=== PATIENT | female | born 1950 | race Caucasian/White ===

== ENCOUNTER 2017-08-08 08:50 | Outpatient (RCR) | payer MEDICARE, OTHER ==
[2016-01-12 09:52] VITALS: BMI 34.3
[~2017-08-08 08:50] MED LIST: 0.92DISP2 IVP; ACET-1966 PO; ACET500L35 PO; ALB17R INH; ALBU17AE3 IH; ALBU8.5H IH; AMLO-101 PO; AMOX1TAB9 PO; ARI2 PO; ARIP2TAB9 PO; ASPI81TA94 PO; AZI250 PO; BISA10SU62 RC; BUDE10.2 INH; CA C1TAB85 PO; CARV12.578 PO; CARV6.2574 PO; CEPH500C24 PO; CHOL100059 PO; CHOL500016 PO; CITA-128 PO; CITA-141; CITA-157 PO; DAP500I IV; DIPH-740 PO; DOX25 PO; DOXY-179 PO; DOXY-252 PO; DULO60CA56 PO; ENOX40DI9 SQ; ERGO500037 PO; FAT250EM9 IV; FEN145 PO; FISH OIL 1,2001 CAP PO; FLUT1DIS28 IH; FUR40 PO; FURO-45 PO; FURO40SO5 IVP; GABA-547 PO; GLIM2TAB42 PO; GOLYTE PO; GUAI600T57 PO; HCTZ25 PO; HYDR-385 PO; INSU100C10 SQ; INSU100V24 SQ; INSULIN LANTIS; IRO150 PO; IRON150C19 PO; LANI SQ; LANI SUBQ; LEVA0.6320 IH; LEVA0.6320 NEB; LEVA15HF IH; LIS10 PO; LISI-362 PO; LISI5TAB25 PO; LOR1 PO; LORA2VIA IVP; LOSA50TA72 PO; MAGN400T4 PO; METF-1 PO; METF-420 PO; METO5AMP IV; NEBI10TA4 PO; NYST15PO4 TP; ONDA4TAB97 PO; ONDA4VIA IVP; OXY10 PO; OXYC-865 PO; OXYC5TAB38 PO; PAN40 PO; PANT40TA65 PO; PANT40VI4 IV; PER PO; POLY500P2 PO; POT25TAB11 PO; POTA-24 PO; POTA20IV IV; POTA20LI10 PO; POTA20PA25 PO; POTA20TA85 PO; POTA20TA94 PO; PRE20 PO; PRE50 PO; PRED20TA6 PO; PREG50CA48 PO; PREN-148 PO; RANI-324 PO; RIV10 PO; SENN-90 PO; SUCR1TAB51 PO; TAMS0.4C70 PO; TOLT2CAP7 PO; TOLT4CAP13 PO; TRAM-420 PO; TRILI135PT PO; VANC1VIA14 IV; VAR05PT PO; VIT1CAPS34 PO; ZOL5; ZOLP-350 PO; ZOLP12.546 PO; ZOLP6.2529 PO; [UNRECOGNIZED DRUG - CODE] IV; [UNRECOGNIZED DRUG - CODE] IVP; [UNRECOGNIZED DRUG - CODE] PO
[2017-08-09] MEDS ORDERED: LIDOCAINE/SOD BICARB 8.4% SYR ID PRN (06:00)
[2017-08-09] MEDS ORDERED: WATER STERILE 10 ML VIAL IVP PRN (06:00)
[2017-08-09] MEDS ORDERED: NS(*) 0.9% 100 ML BAG 100 ML IVPB PRN (06:00)
[2017-08-09] MEDS ORDERED: HEPARIN FLSH (PORT) 500 UN/5ML IVP PRN (06:00)
[2017-08-09] MEDS ORDERED: DEXTROSE 5%(*) 100 ML BAG 100 ML IVPB PRN (06:00)
[2017-08-09] MEDS ORDERED: ALTEPLASE RECOMB 2 MG VIAL IVP PRN (06:00)
[2017-08-09] MEDS ORDERED: NS(*) 0.9% 500 ML BAG 500 ML IV PRN (06:00)
[2017-08-09 16:41] VITALS: BP 143/83
[2017-08-31] MEDS ORDERED: RIVA20TA PO (15:18)
[2017-08-31] MEDS ORDERED: RIVA15TA PO (16:17)
[2017-09-06] MEDS ORDERED: FLU60SYR30 IM ONLY (15:40)
[2017-09-06] MEDS ORDERED: CARV12.578 PO (15:48)
[2017-09-06] MEDS ORDERED: POTA20TA85 PO (15:48)
[2017-09-06] MEDS ORDERED: ALBU8.5H IH (15:48)
[2017-09-06] MEDS ORDERED: ROSU10TA13 PO (15:48)
[2017-09-06] MEDS ORDERED: FURO-45 PO (15:48)
[2017-09-06] MEDS ORDERED: TRAM-420 PO (15:48)
[2017-09-06] MEDS ORDERED: ARI2 PO (15:48)
[2017-09-06] MEDS ORDERED: PREG50CA48 PO (15:48)
[2017-09-06] MEDS ORDERED: FLUT1DIS28 IH (15:48)
[2017-09-06] MEDS ORDERED: DOXY-179 PO (15:48)
[2017-09-06] MEDS ORDERED: DULO60CA56 PO (15:48)
[2017-09-07] MEDS ORDERED: DICL100G39 TOP (16:40)
[2017-09-13] MEDS ORDERED: DICL100G39 TOP (15:27)
== END 2017-11-06 ==
LOC: SPU 08:50
PROVIDERS: ATTEND Emergency Medicine
DX: D50.9 Iron deficiency anemia, unspecified (principal)
CPT/HCPCS: 96523; J1642

== ENCOUNTER 2017-10-06 13:00 | Outpatient (RCR) | payer MEDICARE, OTHER ==
[2016-01-12 09:52] VITALS: Ht 162.6 cm; Wt 95.0 kg
[2017-10-02 11:03] LABS: PLATELET COUNT, AUTOMATED 243 K/uL (150-450)
[2017-10-02 11:19] VITALS: BP 120/50
[~2017-10-06] VITALS: Ht 162.6 cm; Wt 95.0 kg
[~2017-10-06 13:00] MED LIST changes: +DICL100G39 TOP; +FLU60SYR30 IM ONLY; +RIVA15TA PO; +RIVA20TA PO; +ROSU10TA13 PO
[2017-10-06 13:21] VITALS: BP 138/68
--- NOTE | 2017-10-14 15:40 | ONCOLOGY FOLLOW UP NOTE ---
EVENT DATE: October 06, 2017 DIAGNOSES 1. Iron deficiency anemia with no response to iron supplement. 2. Type 2 diabetes mellitus on insulin. 3. Infected right hip replacement. 4. Depression. 5. Gastroesophageal reflux disease. 6. Hypertension. 7. History of breast cancer status post right mastectomy. 8. Sleep apnea. CHIEF COMPLAINT The patient is here today for followup of her iron deficiency anemia. HEMATOLOGY HISTORY The patient is a 67-year-old female who had a right hip replacement fifteen years ago and apparently this became infected in 2013, treated with long-term antibiotics. She ultimately required exploration with antibiotic spacer placed. The patient currently is receiving oral antibiotic under the care of Dr. Mendoza in [place]. The patient had PICC line placed and she had catheter- related thrombosis recently for which the patient was put on Xarelto 20 mg daily. As per patient, she had a GI workup for evaluation of her iron deficiency anemia by Dr. Lara and, as per patient, she was found to have a bleeding small bowel ulcer. The patient was put on iron with ferrous sulfate 325 mg three times daily, but she continues to have anemia, and she received two units of packed RBCs on March 08, 2016. Her CBC on February 22, 2016 showed white count 8000, hemoglobin 8.9, hematocrit 28.7 and MCV 80.9 with platelets 176, 000. The patient is referred for further evaluation and management of her iron deficiency anemia which is not responding to the oral iron supplementation. HISTORY OF PRESENT ILLNESS Patient is here today for followup of her iron deficiency anemia. Patient is doing fine currently, except that she was found recently to have thrombosis of the carotid artery and the patient is currently on anticoagulation for that. She has some cough and wheezing, and she has nasal discharge, but other than that everything is stable. PAST MEDICAL HISTORY 1. Iron deficiency anemia. 2. Infected right hip replacement 3. COPD. 4. Atrial fibrillation. 5. Depression. 6. Hyperlipidemia. 7. Obesity. 8. GERD. 9. Hypertension. 10. Type 2 diabetes. 11. History of breast cancer. 12. History of non-ST elevated myocardial infarction. 13. History of bladder dysfunction. 14. Sleep apnea. 15. Chronic pain syndrome. 16. Congestive heart failure. PAST SURGICAL HISTORY 1. Hysterectomy. 2. Cholecystectomy. 3. Right mastectomy for breast cancer. 4. Left leg [id number] amputation. 5. Broken right calcaneus bone. SOCIAL HISTORY The patient is a with two children. She smokes little. Denies any abuse of alcohol or illicit drugs. 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 FAMILY HISTORY Mother with breast cancer. She has also brother and sister with cancer. CURRENT MEDICATIONS 1. Lasix 20 mg twice daily. 2. Insulin Lantus 30 units subcutaneously twice daily. 3. Xarelto 20 mg daily. 4. Protonix 40 mg twice daily. 5. Doxycycline 100 mg b.i.d. 6. Ferrous sulfate 150 mg capsule of polysaccharide iron 150 three times daily. 7. Lyrica 50 mg three times daily. 8. Exubinex HFA 15 gm one to two puffs by inhalation three times daily as needed for wheezing. 9. Humalog insulin subcutaneously sliding scale. 10. Abilify 2 mg daily. 11. Vitamin D3 at 1000 units daily. 12. Magnesium oxide 400 mg daily in two divided doses. 13. Celexa 40 mg daily. 14. Aspirin 81 mg daily. ALLERGIES HYDROCODONE, LISINOPRIL, MORPHINE, SULFAMETHOXAZOLE, TRIMETHOPRIM, VANCOMYCIN. REVIEW OF SYSTEMS CONSTITUTIONAL: No appetite or weight change. No fever, chills or sweating. No recent infection. HEENT: Ears: No tinnitus or hearing problem. Nose: Patient has nasal discharge. Throat: No sore throat or mouth ulcers. Eyes: No diplopia or visual changes. RESPIRATORY: Patient has cough with wheezing. CARDIOVASCULAR: No chest pain, orthopnea, or paroxysmal nocturnal dyspnea (PND) . No edema. No palpitations. GASTROINTESTINAL: No nausea or vomiting. No diarrhea or constipation. No change in bowel movements. No heartburn or swallowing difficulties. No abdominal pain. No jaundice. No hematemesis, melena or rectal bleeding. GENITOURINARY: No hematuria or dysuria. MUSCULOSKELETAL: No pain in the muscles, joints or bones. NEUROLOGICAL: No tingling or numbness in the hands or feet. No headaches or convulsions. HEMATOLOGIC/LYMPHATIC: No bleeding or easy bruising. No weakness or fatigue. No enlarged lymph nodes. SKIN: No skin rash or lumps. PSYCHIATRIC: No anxiety or depression. PHYSICAL EXAMINATION GENERAL: Looks stable. Well-developed, well-nourished, and in no acute distress. VITAL SIGNS: Blood pressure 138/68, pulse 88 per minute, respirations 16 per minute, temperature 97.6, pulse ox 93% on 2L oxygen. HEENT: Head: Atraumatic. No sinus tenderness to palpation. Eyes: No icterus or conjunctivitis. Mouth and throat: No oral thrush or mucositis. NECK: Supple. No cervical or supraclavicular lymphadenopathy. LUNGS: Clear to auscultation and percussion bilaterally. HEART: Regular rate and rhythm. No gallops, murmurs, clicks or rubs. ABDOMEN: Soft and lax. No tenderness. No hepatosplenomegaly. No masses. EXTREMITIES: Patient has artificial leg. LYMPHATICS: No peripheral lymphadenopathy. NEUROLOGICAL: Conscious, alert and oriented times three. No focal motor or sensory deficits. PSYCHIATRIC: Mood and affect appear normal. SKIN: No skin rash, bruise or purpuric eruption. DIAGNOSTIC DATA CBC showed white count 10.1, hemoglobin 11.2, hematocrit 33.6, platelets 243, 000. Iron studies show a serum iron of 83, TIBC 383, iron saturation 27.4% and ferritin 28, which is up from 14. ASSESSMENT 1. Iron deficiency anemia with no response to oral iron supplementation. Patient had a gastrointestinal workup by Dr. Lara and the patient was found to have a small bowel ulcer. She was maintained on Xarelto for deep venous thrombosis of the left upper extremity, which was discontinued, but the patient was put back recently on anticoagulation because of carotid artery thrombosis. Patient showed poor response to iron supplementation. She received infusion of iron supplementation in the form of Injectafer with improvement of her iron deficiency. Her hemoglobin improved from 8.6 to 11.8 and her current hemoglobin is 11.2. Her iron studies showed ferritin of 28, which is up from 14 , iron saturation 27.4%, serum iron 83 and TIBC is 383. I am planning to continue followup. I will see her again in 3 months with CBC and iron studies with ferritin. 2. Deep venous thrombosis, left upper extremity, resolved with Xarelto. 3. Carotid artery thrombosis, on anticoagulation currently. 4. Type 2 diabetes, on insulin. 5. Depression. 6. Gastroesophageal reflux disease. 7. History of breast cancer, status post right mastectomy. 8. Sleep apnea. PLAN 1. Continue followup. 2. Patient to return in three months with CBC, iron studies with ferritin. 3. Consider Injectafer if the patient will develop iron deficiency again. 4. Patient is to contact us for any new concerns or complaints. MTDD
[2017-12-01] MEDS ORDERED: RIVA20TA PO (12:55)
== END 2017-12-28 ==
LOC: ONC 13:00
PROVIDERS: ATTEND Internal Medicine Hematology
DX: D64.9 Anemia, unspecified (principal)
CPT/HCPCS: 36591; 82728; 83540; 83550; 85025; G0463; 99212

== ENCOUNTER 2017-11-22 13:09 | Outpatient (RCR) | payer MEDICARE, OTHER ==
[2016-01-12 09:52] VITALS: BMI 34.3
[~2017-11-22 13:09] MED LIST changes: -RANI-324 PO; +RANI-366 PO
[2017-11-22] MEDS ORDERED: WATER STERILE 10 ML VIAL IVP PRN (14:30)
[2017-11-22] MEDS ORDERED: NS(*) 0.9% 100 ML BAG 100 ML IVPB PRN (14:30)
[2017-11-22] MEDS ORDERED: LIDOCAINE/SOD BICARB 8.4% SYR ID PRN (14:30)
[2017-11-22] MEDS ORDERED: NS(*) 0.9% 500 ML BAG 500 ML IV PRN (14:30)
[2017-11-22] MEDS ORDERED: DEXTROSE 5%(*) 100 ML BAG 100 ML IVPB PRN (14:30)
[2017-11-22] MEDS ORDERED: ALTEPLASE RECOMB 2 MG VIAL IVP PRN (14:30)
[2017-11-22] MEDS ORDERED: HEPARIN FLSH (PORT) 500 UN/5ML IVP PRN (14:30)
[2017-11-22 14:58] VITALS: BP 117/65
[2017-12-01] MEDS ORDERED: RIVA20TA PO (12:55)
[2018-01-08] MEDS ORDERED: BLOO-1511 MC (09:21)
[2018-01-08] MEDS ORDERED: LANC-1295 MC (09:21)
[2018-01-11] MEDS ORDERED: LANI SUBQ (16:57)
[2018-01-11] MEDS ORDERED: INSU100V24 SQ (16:57)
[2018-01-28] MEDS ORDERED: AMOX-559 PO (17:09)
[2018-02-06] MEDS ORDERED: TRAM-420 PO (16:59)
== END 2018-02-20 ==
LOC: SPU 13:09
PROVIDERS: ATTEND Internal Medicine Hematology
DX: D50.9 Iron deficiency anemia, unspecified (principal)
CPT/HCPCS: 96523; J1642

== ENCOUNTER → 2017-11-27 | Outpatient (CLI) | payer MEDICARE, OTHER ==
[2016-01-12 09:52] VITALS: BMI 34.3
[~2017-11-27] MED LIST changes: +RANI-324 PO; -RANI-366 PO
--- NOTE | 2017-11-27 15:49 | RADIOLOGY IMAGING REPORT ---
FACILITY: [facility] PATIENT NAME: Rosario Mary : 1950 MR: [id number] V: [id number] EXAM DATE: ORDERING PHYSICIAN: LYNN VALERIO TECHNOLOGIST: Location: [facility] Patient: Rosario Mary : 1950 Visit/Account:[id number] Date of Sevice: 11/27/2017 Exam type: VENOUS DOPP UPPER RIGHT EXTREM History: Chronic right internal jugular vein thrombosis Comparison: Thyroid ultrasound August 31, 2017. Findings: The inferior right internal jugular vein appears partially compressible and appears to contain a smal l amount of thrombus. This is markedly improved however when compared the prior thyroid ultrasound. The right subclavian vein appeared patent without thrombus IMPRESSION: 1. A small amount of residual chronic thrombus is seen in the inferior right internal jugular vein w hich appeared partially compressible. This does represent an improvement however when compared to e prior thyroid ultrasound Report Dictated By: Jovanna High MD at 11/27/2017 3:31 PM Report E-Signed By: Jovanna High MD at 11/27/2017 3:43 PM WSN:[email or web address]
--- NOTE | 2017-11-27 15:56 | RADIOLOGY IMAGING REPORT ---
FACILITY: [facility] [place] PATIENT NAME: Rosario Mary : 1950 MR: [id number] V: [id number] EXAM DATE: ORDERING PHYSICIAN: LYNN VALERIO TECHNOLOGIST: Location: [facility] [place] Patient: Rosario Mary : 1950 Visit/Account:[id number] Date of Sevice: 11/27/2017 THYROID HISTORY: Substernal goiter COMPARISON: August 31, 2017 FINDINGS: SIZE: Enlarged Right lobe: 7.7 x 4 x 5 cm Left lobe: 6.4 x 2.4 x 3.2 cm Isthmus: 1.7.. mm PARENCHYMA: Both lobes appear extremely heterogeneous and multinodular similar to the prior study NODULES: * Multinodular goiter the previously defined isthmus nodule measures 2.8 x 1.3 x 1.5 cm similar to t he prior study as well VASCULARITY: Hypervascular ADDITIONAL FINDINGS: None. IMPRESSION: Enlarged extremely heterogeneous multinodular thyroid appear similar to the prior study REFERENCE: 2015 [place] [employer] Management Guidelines for Adult Patients with Thyroid Nodules and D ifferentiated Thyroid Cancer: The [place] [employer] Guidelines Task Force on Thyroid Nodul es and Differentiated Thyroid Cancer. SONOGRAPHIC PATTERNS: * Benign: Purely cystic nodules (no solid component); estimated risk of malignancy <1 percent; no bi opsy recommended. * Very Low Suspicion: Spongiform or partially cystic nodules without any of the sonographic features described in low, intermediate, or high suspicion patterns; estimated risk of malignancy <3 percent; consider FNA at > 2 cm (Observation without FNA is also a reasonable option). * Low Suspicion: Isoechoic or hyperechoic solid nodule, or partially cystic nodule with eccentric so lid areas, without microcalcification, irregular margin or ETE (extra-thyroidal extension), or taller than wide shape; estimated risk of malignancy 5-10 percent; recommend FNA at >1.5 cm. * Intermediate Suspicion: Hypoechoic solid nodule with smooth margins without microcalcifications, E TE (extra-thyroidal extension), or taller than wide shape; estimated risk of malignancy 10-20 percent ; recommend FNA at > 1 cm. * High Suspicion: Solid hypoechoic nodule or solid hypoechoic component of a partially cystic nodule with one or more of the following features: irregular margins (infiltrative, microlobulated), microc alcifications, taller than wide shape, rim calcifications with small extrusive soft tissue component, evidence of ETE (extra-thyroidal extension); estimated risk of malignancy >70-90 percent; recommend FNA at > 1 cm. NOTES: * Although a sonographically suspicious subcentimeter thyroid nodule without evidence of extrathyroi umer extension or sonographically suspicious lymph nodes may be observed with close sonographic follow -up rather than pursuing immediate FNA, patient age and preference may modify decision-making. A > 50% interval increase in nodule volume and/or development of new suspicious sonographic features are felt to be a valid reasons for potential re-aspiration of a nodule previously shown to have benig n FNA cytology. Report Dictated By: Jovanna High MD at 11/27/2017 3:47 PM Report E-Signed By: Jovanna High MD at 11/27/2017 3:52 PM WSN:[email or web address]
== END ==
LOC: US 01:04
PROVIDERS: ATTEND Surgery
DX: I82.C21 Chronic embolism and thrombosis of right internal jugular vein (principal); E04.9 Nontoxic goiter, unspecified
CPT/HCPCS: 76536

== ENCOUNTER 2018-01-01 08:08 | Outpatient (RCR) | payer MEDICARE, OTHER ==
[2016-01-12 09:52] VITALS: BMI 34.3
[~2018-01-01 08:08] MED LIST changes: +ALTEPLASE RECOMB 2 MG VIAL IVP PRN; +DEXTROSE 5%(*) 100 ML BAG 100 ML IVPB PRN; +HEPARIN FLSH (PORT) 500 UN/5ML IVP PRN; +LIDOCAINE/SOD BICARB 8.4% SYR ID PRN; +NS(*) 0.9% 100 ML BAG 100 ML IVPB PRN; +NS(*) 0.9% 500 ML BAG 500 ML IV PRN; -RANI-324 PO; +RANI-366 PO; +WATER FOR INJ,STERILE 20 ML IVP PRN
[2018-01-08] MEDS ORDERED: BLOO-1511 MC (09:21)
[2018-01-08] MEDS ORDERED: LANC-1295 MC (09:21)
[2018-01-11] MEDS ORDERED: INSU100V24 SQ (16:57)
[2018-01-11] MEDS ORDERED: LANI SUBQ (16:57)
[2018-01-28] MEDS ORDERED: AMOX-559 PO (17:09)
[2018-02-06] MEDS ORDERED: TRAM-420 PO (16:59)
== END 2018-02-16 11:32 | disposition home or self-care (01) ==
LOC: ONC 08:08
PROVIDERS: ATTEND Internal Medicine Hematology
DX: D64.9 Anemia, unspecified (principal)

== ENCOUNTER 2018-01-24 13:00 | Outpatient (RCR) | payer MEDICARE, OTHER ==
[2016-01-12 09:52] VITALS: BMI 34.3
--- NOTE | 2017-10-31 16:32 | PT INITIAL EVALUATION ---
MEDICAL DIAGNOSIS: balance and gait TREATMENT DIAGNOSIS: same, decreased strength DATE OF ONSET: 02/23/17 SUBJECTIVE: Rosario Mary presents to physical therapy with complaints of decreased endurance and decreased gait and balance. She reports that in the last few months, she recovered from a blood clot and wound on her prosthetic limb. She reports that she is able to cook, clean, drive, and most house hold responsibilities independently. She reports that she wants to be able to walk with a cane versus a FWW. Furthermore, she reports that she would like to become confident with walking on uneven ground with a FWW so that she can walk around her house when she is by herself. Furthermore, she reports that she continues to have a fear of falling that she wants to overcome and has overcome a lot in the last few years. She denies any pain in her B LE's, however, she does report that she has lymphedema in her R UE and LE that she would like to take care of in the future. REHAB PROBLEM LIST: Decreased ROM Decreased Strength Decreased Endurance Decreased Balance Decreased Function Decreased ADL's Decreased Mobility Decreased Gait PREVIOUS MEDICAL HISTORY: See EMR OCCUPATION: Retired OBJECTIVE: Posture: She demonstrated forward head, B rounded shoulders, increased thoracic kyphosis, and decreased lumbar lordosis. Strength: B hip abduction, extension, B knee flexion, and B ankle DF: 4/5. B hip adduction, B knee extension, B ankle PF: 5/5. Special Tests: The lower extremity functional scale: 33/80; 58.8% impairment. 6 minute walk test: 428 feet with no rest breaks. Mobility: Modified Independent Gait: With FWW, she demonstrated the following gait mechanics: equal B step lengths, increased base of support, decreased velocity, increased double limb support, decreased pelvic rotation, and no LOB. Balance: Normal base of support, firm surface, and eyes opened: 60 seconds. Decreased base of support, firm surface, and eyes opened: 60 seconds. Tandem stance, firm surface, and eyes opened: 30 seconds with R or L LE forward. Normal base of support, firm surface, and eyes closed: 40 seconds. Decreased base of support, firm surface, and eyes closed: 20 seconds. ASSESSMENT: Rosario will benefit from skilled physical therapy to address the listed impairments to improve function and QOL. Short Term Goals In 6 weeks pt will increase ambulation prior to fatigue to 3 laps around track (855 ft) using 4WW increasing functional endurance resulting in increased ambulation around home and community. In 6 weeks pt will increase strength in R LE to equal that in L LE for increased functional ability to perform transfers and ADL's. In 8 weeks, pt will be able to transition from FWW to cane independently to improve function and QOL. 10 weeks, pt will be able to ambulate on uneven ground with FWW to improve her fear of falling and improve function and QOL. Patient's Goals walking with cane and walking on uneven ground PLAN: Patient to be seen for Manual Therapy/STM/MET Strengthening/condition Range of Motion Spinal Stabilization Work Hardening/Cond Stretching Neuromuscular Re-ed Closed Chain Program Posture/Body mechanics Gait Trg/Balance Trg Home Exercise Program Therapeutic Activities 2x/Week for 10 weeks If you have any questions, comments, or concerns about this report or plan, please contact me at . Thank you, Nash Tran, PT, DPT VANESSA
--- NOTE | 2017-12-07 14:51 | PT PLAN OF CARE ---
Physician: Ashlee Delgado MD Patient is being seen: 2x/week Therapist: Nash Tran, PT, DPT Medical Diagnosis: balance and gait Treatment Diagnosis: same, decreased strength Date of Onset: 02/23/17 Date of Initial Evaluation: 10/30/17 Date patient was last seen: 12/06/17 Number of treatments: 10 Number of cancellations/No shows: 1 INTERVENTIONS: Manual Therapy/STM/MET Strengthening/condition Range of Motion Spinal Stabilization Work Hardening/Cond Stretching Neuromuscular Re-ed Closed Chain Program Posture/Body mechanics Gait Trg/Balance Trg Home Exercise Program Therapeutic Activities GOALS: In 6 weeks pt will increase ambulation prior to fatigue to 3 laps around track (855 ft) using 4WW increasing functional endurance resulting in increased ambulation around home and community. NM In 6 weeks pt will increase strength in R LE to equal that in L LE for increased functional ability to perform transfers and ADL's. Progressing In 8 weeks, pt will be able to transition from FWW to cane independently to improve function and QOL. NM 10 weeks, pt will be able to ambulate on uneven ground with FWW to improve her fear of falling and improve function and QOL. NM PATIENT'S GOAL: walking with cane and walking on uneven ground Status of Patient's Goals: Progressing Patient Compliance: Good Prognosis: Good Reasons for continuing therapy: This is a progress note for Rosario Mary. She reports that she is doing well. She continues to report that her prosthetic is putting a lot of pressure over her wound and she will be seeing the rotoformer backtender tomorrow to modify her prosthetic. She reports that her back is doing really well and has not felt any low back pain the last 4-5 days. She reports that she continues to utilize her lumbar support with good results. She reports that she would really like to return to gait training but is limited by the sore developed on her prosthetic side due to the prosthetic fitting incorrectly. She continues to demonstrate a wound on her prosthetic side, however, it continues to get better and not worse, furthermore, she needs to have the prosethesis change the fitting so that it fits correctly and take the pressure off over the wound so that it can fully heal and then she can return to gait training. However, she has been able to focus on her low back pain, which centralized and then abolished. Furthermore, she has been able to focus on improving core and B LE strength during this time, which will benefit in returning to gait training. Posture: She demonstrated forward head, B rounded shoulders, increased thoracic kyphosis, and decreased lumbar lordosis. ROM: Strength: B hip abduction, extension, B knee flexion, and B ankle DF: 4/5 to 4+/ 5. B hip adduction, B knee extension, B ankle PF: 5/5. Palpation: Special Tests: The lower extremity functional scale: 40/80; 50% impairment. 6 minute walk test: 428 feet with no rest breaks (did not test due to wound. Mobility: Modified Independent If you have any questions, please contact me at [phone]. Thank you, Nash Tran, PT, DPT MTDD
[~2018-01-24 13:00] MED LIST changes: -ALTEPLASE RECOMB 2 MG VIAL IVP PRN; +BLOO-1511 MC; -DEXTROSE 5%(*) 100 ML BAG 100 ML IVPB PRN; -HEPARIN FLSH (PORT) 500 UN/5ML IVP PRN; +LANC-1295 MC; -LIDOCAINE/SOD BICARB 8.4% SYR ID PRN; -NS(*) 0.9% 100 ML BAG 100 ML IVPB PRN; -NS(*) 0.9% 500 ML BAG 500 ML IV PRN; +RANI-324 PO; -RANI-366 PO; -WATER FOR INJ,STERILE 20 ML IVP PRN
--- NOTE | 2018-01-24 15:10 | PT PLAN OF CARE ---
Physician: Ashlee Delgado MD Patient is being seen: 2x/week Therapist: Nash Tran, PT, DPT Medical Diagnosis: balance and gait Treatment Diagnosis: same, decreased strength Date of Onset: 02/23/17 Date of Initial Evaluation: 10/30/17 Date patient was last seen: 01/24/18 Number of treatments: 20 Number of cancellations/No shows: 1 INTERVENTIONS: Manual Therapy/STM/MET Strengthening/condition Range of Motion Spinal Stabilization Work Hardening/Cond Stretching Neuromuscular Re-ed Closed Chain Program Posture/Body mechanics Gait Trg/Balance Trg Home Exercise Program Therapeutic Activities GOALS: In 6 weeks pt will increase ambulation prior to fatigue to 3 laps around track (855 ft) using 4WW increasing functional endurance resulting in increased ambulation around home and community. NM In 6 weeks pt will increase strength in R LE to equal that in L LE for increased functional ability to perform transfers and ADL's. Progressing In 8 weeks, pt will be able to transition from FWW to cane independently to improve function and QOL. Progressing 10 weeks, pt will be able to ambulate on uneven ground with FWW to improve her fear of falling and improve function and QOL. NM PATIENT'S GOAL: walking with cane and walking on uneven ground Status of Patient's Goals: Progressing Patient Compliance: Good Prognosis: Good Reasons for continuing therapy: This is a progress note for Rosario Mary. She reports that she came from the "eye doctor" and received a lot of eye drops. She reports that she feels a bit off balance due to being dilated. Otherwise, she reports that she continues to feel more tired than usual. Furthermore, she reports that her prosthetic will be adjusted tomorrow. She denies any skin breakdown on her L LE. She denies any pain. She demonstrates improved gait mechanics (increased R step length, increased velocity, and no LOB) with quad cane, however, her prosthetic currently is extremely high, which causes her to vault over her L LE along with increased base of support and increased trunk movement. We will continue to fine tune her gait mechanics as her prosthetic is lowered to the correct height. Furthermore, she continues to demonstrate improved endurance and B LE strength as she continues to require increased resistance. Lastly, she is transitioning well from the FWW to quad cane and we will continue to improve gait mechanics with quad cane, B LE strength, and return to prior level of function. Posture: She demonstrated forward head, B rounded shoulders, increased thoracic kyphosis, and decreased lumbar lordosis. Strength: B hip abduction, extension, B knee flexion, and B ankle DF: 4/5 to 4+/ 5. B hip adduction, B knee extension, B ankle PF: 5/5. Special Tests: The lower extremity functional scale: 40/80; 50% impairment. 6 minute walk test: 428 feet with no rest breaks Mobility: Modified Independent If you have any questions, please contact me at [phone]. Thank you, Nash Tran, PT, DPT MTDD
[2018-01-28] MEDS ORDERED: AMOX-559 PO (17:09)
== END 2018-01-28 ==
LOC: PT 13:00
PROVIDERS: ATTEND Emergency Medicine
DX: M62.81 Muscle weakness (generalized) (principal); R26.89 Other abnormalities of gait and mobility; I89.0 Lymphedema, not elsewhere classified; Z96.643 Presence of artificial hip joint, bilateral; Z89.512 Acquired absence of left leg below knee; Z97.14 Presence of artificial left leg (complete) (partial)
CPT/HCPCS: 97162

== ENCOUNTER 2018-01-28 14:48 | Emergency (ER) | payer MEDICARE, OTHER ==
[2016-01-12 09:52] VITALS: Wt 96.6 kg
--- NOTE | 2018-01-28 15:28 | ER Report ---
History and Physical Time Seen By MD: 15:16 Hx. of Stated Complaint: pt reports wound on toe HPI/ROS CHIEF COMPLAINT: Wound to right great toe HISTORY OF PRESENT ILLNESS: 67-year-old female patient presents to emergency room with complaint of a wound to the right great toe. Patient states that she laid down to take a nap. When she woke up her dog was licking her toe. She states that when she'll down and she knows there is bleeding from the toe. It appears the dog had been chewing on her toe. Patient states she is diabetic, she has significant neuropathy to her feet. She states that she had a toenail removed a few weeks ago. She had removed some skin from the nail bed. She believes that is what caused the dog started chewing on her toe. Patient denies any fevers, chills, nausea, vomiting or diarrhea. Patient is leaving to go to [place] in 5 days. REVIEW OF SYSTEMS: Respiratory: No cough, no dyspnea. Cardiovascular: No chest pain, no palpitations. Gastrointestinal: No vomiting, no abdominal pain. Musculoskeletal: As noted above Allergies: Coded Allergies: hydrocodone (Verified Allergy, Severe, 01/28/18) angioedema lisinopril (Verified Allergy, Severe, 01/28/18) angioedema sulfamethoxazole (Verified Allergy, Severe, 01/28/18) angioedema trimethoprim (Verified Allergy, Severe, 01/28/18) angioedema morphine (Verified Allergy, Intermediate, MENTAL STATUS CHANGES, 01/28/18) vancomycin (Verified Allergy, Mild, HIVES, 01/28/18) Pt was given Vanco on 07/14/15 at [facility], had hives to chest and ABD, resolved with discontinuation of medication and benadryl. metoprolol (Verified Allergy, Unknown, 01/28/18) bupropion (Verified Adverse Reaction, Unknown, Moodiness, 01/28/18) Uncoded Allergies: TAPE (Allergy, Mild, 09/06/07) Home Meds Active Scripts Amoxicillin/Pot Clav 875-125 Mg Tab (AUGMENTIN 875-125 TABLET) 1 Each Tablet, 1 TAB PO Q12H, #20 TAB Prov:DEBBIE LEON 01/28/18 Insulin Glargine (LANTUS) 100 Unit/Ml Soln, 35.31 UNIT SUBQ BID, #3 BOX 0 Refills Prov:AMEENA REECE MD 01/11/18 Insulin Lispro 100 Un/Ml Vial (HUMALOG 100 U/ML VIAL) 100 Unit/1 Ml Vial, 10 UNITS SQ SS, #3 VIAL 0 Refills Prov:AMEENA REECE MD 01/11/18 Lancets (FREESTYLE LANCETS) 1 Each Each, EACH MC BID, #1 3 Refills Prov:AMEENA REECE MD 01/08/18 Blood Sugar Diagnostic (GLUCOSE TEST STRIP) 1 Each Strip, 1 EACH MC BID, #6 BOTTLE 3 Refills Prov:AMEENA REECE MD 01/08/18 Rivaroxaban 20 Mg (XARELTO 20 MG) 20 Mg Tablet, 1 TAB PO QDAY, #90 TAB 6 Refills Prov:AMEENA REECE MD 12/01/17 Diclofenac Sodium 1% Gel (VOLTAREN 1% GEL) 100 Gm Gel..gram., 1 EACH TOP BID, # 1 TUBE 0 Refills Prov:AMEENA REECE MD 09/13/17 Rosuvastatin Calcium (Rosuvastatin Calcium) 10 Mg Tablet, 1 TAB PO DAILY, #90 TAB 3 Refills Prov:AMEENA REECE MD 09/06/17 Duloxetine Hcl (CYMBALTA) 60 Mg Capsule.dr, 60 MG PO QDAY, #90 CAP 4 Refills Prov:AMEENA REECE MD 09/06/17 Potassium Chloride (KLOR-CON M20) 20 Meq Tab.er.prt, 1 TAB PO QDAY, #90 TAB 3 Refills Prov:AMEENA REECE MD 09/06/17 Pregabalin (LYRICA) 50 Mg Capsule, 1 CAP PO TID, #270 CAPSULE 3 Refills Prov:AMEENA REECE MD 09/06/17 Albuterol Sulfate 90 Mcg/Act (PROAIR HFA 90 MCG/ACT) 8.5 Gm Hfa.aer.ad, 2 PUFF IH Q4-6H, #3 INHALER 3 Refills Prov:AMEENA REECE MD 09/06/17 Doxycycline Hyclate (DOXYCYCLINE HYCLATE) 100 Mg Tablet, 100 MG PO BID, #180 TAB 3 Refills Prov:AMEENA REECE MD 09/06/17 Fluticasone/Salmeterol (ADVAIR 250-50 DISKUS) 1 Each Disk.w.dev, 1 EACH IH BID, #1 DISK 11 Refills Prov:AMEENA REECE MD 09/06/17 Carvedilol (CARVEDILOL) 12.5 Mg Tablet, 1 TAB PO BID, #180 TAB 3 Refills Prov:AMEENA REECE MD 09/06/17 Tramadol Hcl (TRAMADOL HCL) 50 Mg Tablet, 2 TAB PO BID, #360 TAB 4 Refills Prov:AMEENA REECE MD 09/06/17 Aripiprazole (ABILIFY) 2 Mg Tablet, 1 TAB PO QDAY, #90 TAB 3 Refills Prov:AMEENA REECE MD 09/06/17 Furosemide (FUROSEMIDE) 20 Mg Tablet, 1 TAB PO BID, #180 TAB 3 Refills Prov:AMEENA REECE MD 09/06/17 Cholecalciferol (Vitamin D3) (VITAMIN D3) 5,000 Unit Capsule, 5000 UNIT PO DAILY , #90 CAPSULE 0 Refills Prov:AMEENA REECE MD 07/27/17 Reported Medications Vit W-Ca,Fe,FA(<1 mg) ( Formula) 1 Each Tablet, 1 TAB PO DAILY 11/14/16 Vit A/Vit C/Vit E/Zinc/Copper (PRESERVISION AREDS SOFTGEL) 1 Each Capsule, 1 EACH PO BID, CAPSULE 11/14/16 Aspirin (ASPIRIN) 81 Mg Tab.chew, 1 TAB PO DAILY 07/30/13 Past Medical/Surgical History Patient has a past medical history of CVA, TIA, DVT left arm, AR, hypertension, hyperlipidemia, angioedema, pneumonia, COPD, reflux, cholecystitis, hiatal hernia, arthritis, right wrist fracture, back pain, type 2 diabetes, hypothyroidism, depression, cancer. Patient has a surgical history of cholecystectomy, bilateral hip replacement, left leg below the knee amputation, cataract surgery, skin cancer removed. Patient has a family medical history of cancer, CAD, stroke, diabetes. Reviewed Nurses Notes: Yes Hx Smoking: Yes (1 PPD) Smoking Status: Current: Every Day Smoker Hx Substance Use Disorder: No Hx Alcohol Use: No Constitutional Vital Sign - Last 24 Hours 01/28/18 01/28/18 01/28/18 01/28/18 15:04 15:11 15:18 15:30 Temp 98.7 Pulse 83 ??? Resp 16 B/P (MAP) 154/59 160/80 (106) 138/64 (88) Pulse Ox 90 96 O2 Delivery Room Air 01/28/18 01/28/18 01/28/18 01/28/18 15:33 15:48 16:00 16:03 Pulse 78 76 ??? B/P (MAP) 142/68 (92) Pulse Ox 97 95 96 01/28/18 01/28/18 01/28/18 01/28/18 16:18 16:30 16:33 16:38 Pulse 75 ? B/P (MAP) 144/78 (100) Pulse Ox 95 01/28/18 01/28/18 01/28/18 01/28/18 16:53 17:00 17:08 17:23 Pulse ? B/P (MAP) ???/??? (1665) 01/28/18 01/28/18 01/28/18 17:35 17:38 17:41 Pulse ??? 83 Resp 16 B/P (MAP) 131/64 (86) 131/64 (86) Pulse Ox 97 97 O2 Delivery Nasal Cannula Intake and Output 01/28/18 01/28/18 01/29/18 15:00 23:00 07:00 Intake Total 100 ml Balance 100 ml Physical Exam General Appearance: The patient is alert, has no immediate need for airway protection and no current signs of toxicity. Respiratory: Chest is non tender, lungs are clear to auscultation. Cardiac: regular rate and rhythm Gastrointestinal: Abdomen is soft and non tender, no masses, bowel sounds normal. Musculoskeletal: Neck: Neck is supple and non tender. Extremities have full range of motion and are non tender. Skin: No rashes or lesions. Patient does have open wound to right great toe, there is no tissue to pull together for closing. DIFFERENTIAL DIAGNOSIS: After history and physical exam differential diagnosis was considered for dogbite, open fracture. Medical Decision Making EKG/Imaging Imaging FOOT 3 VIEW RIGHT HISTORY: animal bite Additional history: None COMPARISON: None. FINDINGS: There are no prior studies for comparison. There is advanced bony demineralization. On the lateral view there is extensive deformity of the hindfoot involving the calcaneus with calcaneal collapse and loss of Boehler's angle. Oblique view demonstrates narrowing and sclerosis in the intercarpal joints through the hindfoot. There may also be an old healed fifth metacarpal base fracture. No acute fractures are identified. IMPRESSION: Extensive calcaneal deformity likely related to old fracture. Charcot joint possible. This could best be evaluated with a follow-up CT scan. Advanced osteopenia. No acute pathology identified. Report Dictated By: Jairo Valle MD at 01/28/2018 4:36 PM Report E-Signed By: Jairo Valle MD at 01/28/2018 4:42 PM ED Course/Re-evaluation ED Course Patient was admitted and examined, history and physical were obtained. Differential diagnoses were considered. On examination patient has open wound to the right great toe. X-rays done of the right toe, an IV was started, patient received a dose of Unasyn here in the emergency room. On examination the x-ray does not appear to show any damage to the distal phalanx of the right great toe. We discussed findings with the patient. We will go ahead and discharge her home at this time. We will have her follow-up with back in, physical therapist, for wound care tomorrow. She is also to take antibiotics, Augmentin twice a day for the next 10 days. Patient was given a dose to take tonight and one for tomorrow as pharmacies are closed time of discharge. Patient verbalized understanding and agreement with plan. Decision to Disposition Date: Jan 28, 2018 Decision to Disposition Time: 17:11 Depart Departure Latest Vital Signs Vital Signs Date Time Temp Pulse Resp B/P (MAP) Pulse Ox O2 Delivery O2 Flow Rate FiO2 01/28/18 17:41 83 16 131/64 (86) 97 Nasal Cannula 01/28/18 15:04 98.7 Impression: Primary Impression: Dog bite of right foot Condition: Improved Disposition: HOME OR SELF-CARE Referrals: AMEENA REECE MD (PCP) New Scripts Amoxicillin/Pot Clav 875-125 Mg Tab (AUGMENTIN 875-125 TABLET) 1 Each Tablet 1 TAB PO Q12H, #20 TAB Prov: CAROLYNDEBBIE FNP 01/28/18 Patient Instructions: Animal Bite (ED) Additional Instructions: Limit activity by pain. Keep wound covered. Take Tylenol or Ibuprofen as needed for pain. Follow up with Joan tomorrow at 1:30 p.m. Return to the ER if condition worsens. Problem Qualifiers Primary Impression: Dog bite of right foot Encounter type: initial encounter Qualified Codes: S91.351A - Open bite, right foot, initial encounter; W54.0XXA - Bitten by dog, initial encounter DEBBIE LEON Jan 28, 2018 15:28
[2018-01-28] MEDS ORDERED: AMPICILLIN/SULBACT (*) 3 GM VL 3 GM in NS(*) 0.9% 100 ML BAG 100 ML IVPB ONE (15:35)
--- NOTE | 2018-01-28 16:47 | RADIOLOGY IMAGING REPORT ---
FACILITY: [facility] [place] PATIENT NAME: Rosario Mray : 1950 MR: [id number] V: [id number] EXAM DATE: ORDERING PHYSICIAN: DEBBIE LEON TECHNOLOGIST: Location: [facility] Patient: Rosario Mary : 1950 Visit/Account:[id number] Date of Sevice: 01/28/2018 FOOT 3 VIEW RIGHT HISTORY: animal bite Additional history: None COMPARISON: None. FINDINGS: There are no prior studies for comparison. There is advanced bony demineralization. On the lateral vi ew there is extensive deformity of the hindfoot involving the calcaneus with calcaneal collapse and l oss of Boehler's angle. Oblique view demonstrates narrowing and sclerosis in the intercarpal joints t hrough the hindfoot. There may also be an old healed fifth metacarpal base fracture. No acute fractur es are identified. IMPRESSION: Extensive calcaneal deformity likely related to old fracture. Charcot joint possible. This could best be evaluated with a follow-up CT scan. Advanced osteopenia. No acute pathology identified. Report Dictated By: Jairo Valle MD at 01/28/2018 4:36 PM Report E-Signed By: Jairo Valle MD at 01/28/2018 4:42 PM WSN:[id number]
[2018-01-28] MEDS ORDERED: AMOX-559 PO (17:09)
[2018-01-28] MEDS ORDERED: HEPARIN FLSH (PORT) 500 UN/5ML IVP ONE (17:30)
[2018-01-28] MEDS ORDERED: AMOX/CLAV 875 MG TAB PO ONE (17:35)
[2018-01-28 17:41] VITALS: BP 131/64
== END 2018-01-28 17:41 | disposition home or self-care (01) ==
LOC: ER 15:42
DX: S91.351A Open bite, right foot, initial encounter (principal)
CPT/HCPCS: 73630; 96365; 99284; A9270; J0295; J1642; J7050

== ENCOUNTER → 2018-03-01 | Outpatient (CLI) | payer MEDICARE, OTHER ==
[2016-01-12 09:52] VITALS: BMI 34.3
[~2018-03-01] MED LIST changes: +AMOX-559 PO; -RANI-324 PO; +RANI-366 PO
--- NOTE | 2018-03-01 14:03 | RADIOLOGY IMAGING REPORT ---
FACILITY: [facility] [place] PATIENT NAME: Rosario Mary : 1950 MR: [id number] V: [id number] EXAM DATE: ORDERING PHYSICIAN: LYNN VALERIO TECHNOLOGIST: Location: [facility] [place] Patient: Rosario Mary : 1950 Visit/Account:[id number] Date of Sevice: 03/01/2018 Exam type: VENOUS DOPP UPPER RIGHT EXTREM History: Monitor R. IJ thrombosis Comparison: November 27, 2017. Findings: In the inferior right internal jugular vein again noted is a very small amount of nonobstructing game producer mandeep thrombus. Similar to the prior study. The remainder of the right internal jugular vein the subc lavian vein appear compressible without evidence of thrombus IMPRESSION: 1. 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
== END ==
LOC: US 01:27
PROVIDERS: ATTEND Surgery
DX: I82.C11 Acute embolism and thrombosis of right internal jugular vein (principal)

== ENCOUNTER → 2018-03-07 | Outpatient (CLI) | payer MEDICARE, OTHER ==
[2016-01-12 09:52] VITALS: BMI 34.3
== END ==
LOC: SPU 07:43
PROVIDERS: ATTEND Emergency Medicine
DX: E55.9 Vitamin D deficiency, unspecified (principal); E11.9 Type 2 diabetes mellitus without complications
CPT/HCPCS: 82306; 83036

== ENCOUNTER 2018-03-15 16:35 | Emergency (ER) | payer MEDICARE, OTHER ==
[2016-01-12 09:52] VITALS: Wt 90.3 kg
[2018-03-15 16:38] VITALS: BP 139/71
--- NOTE | 2018-03-15 16:39 | ER Report ---
History and Physical Time Seen By MD: 16:39 HPI/ROS CHIEF COMPLAINT: Hypoglycemia HISTORY OF PRESENT ILLNESS: 68-year-old female patient presents to emergency room with complaint of hypoglycemia. Patient states that she took her insulin this morning like she normally does. She states she checked her blood sugar, which was 156. She states that she then took 36 units of her Lantus followed by 10 units of her fast acting insulin. She states that that is normal for her. She states that when her blood sugar gets over 200 that she will typically take 15. She states that this afternoon she felt very funny. She felt weak. Her daughter came and checked her and she had a blood sugar of 50. She did give her a peanut butter sandwich. They contacted EMS and when they got there they did give her some glucose. Patient states she feels better at this time. Allergies: Coded Allergies: hydrocodone (Verified Allergy, Severe, 01/28/18) angioedema lisinopril (Verified Allergy, Severe, 01/28/18) angioedema sulfamethoxazole (Verified Allergy, Severe, 01/28/18) angioedema trimethoprim (Verified Allergy, Severe, 01/28/18) angioedema morphine (Verified Allergy, Intermediate, MENTAL STATUS CHANGES, 01/28/18) vancomycin (Verified Allergy, Mild, HIVES, 01/28/18) Pt was given Vanco on 07/14/15 at [facility], had hives to chest and ABD, resolved with discontinuation of medication and benadryl. metoprolol (Verified Allergy, Unknown, 01/28/18) bupropion (Verified Adverse Reaction, Unknown, Moodiness, 01/28/18) Uncoded Allergies: TAPE (Allergy, Mild, 09/06/07) Home Meds Active Scripts Tramadol Hcl (TRAMADOL HCL) 50 Mg Tablet, 2 TAB PO BID, #360 TAB 4 Refills Prov:AMEENA REECE MD 02/06/18 Insulin Glargine (LANTUS) 100 Unit/Ml Soln, 35.31 UNIT SUBQ BID, #3 BOX 0 Refills Prov:AMEENA REECE MD 01/11/18 Insulin Lispro 100 Un/Ml Vial (HUMALOG 100 U/ML VIAL) 100 Unit/1 Ml Vial, 10 UNITS SQ SS, #3 VIAL 0 Refills Prov:AMEENA REECE MD 3/22/18 Lancets (FREESTYLE LANCETS) 1 Each Each, EACH MC BID, #1 3 Refills Prov:AMEENA REECE MD 01/08/18 Blood Sugar Diagnostic (GLUCOSE TEST STRIP) 1 Each Strip, 1 EACH MC BID, #6 BOTTLE 3 Refills Prov:AMEENA REECE MD 01/08/18 Rivaroxaban 20 Mg (XARELTO 20 MG) 20 Mg Tablet, 1 TAB PO QDAY, #90 TAB 6 Refills Prov:AMEENA REECE MD 12/01/17 Diclofenac Sodium 1% Gel (VOLTAREN 1% GEL) 100 Gm Gel..gram., 1 EACH TOP BID, # 1 TUBE 0 Refills Prov:AMEENA REECE MD 09/13/17 Rosuvastatin Calcium (Rosuvastatin Calcium) 10 Mg Tablet, 1 TAB PO DAILY, #90 TAB 3 Refills Prov:AMEENA REECE MD 09/06/17 Duloxetine Hcl (CYMBALTA) 60 Mg Capsule.dr, 60 MG PO QDAY, #90 CAP 4 Refills Prov:AMEENA REECE MD 09/06/17 Potassium Chloride (KLOR-CON M20) 20 Meq Tab.er.prt, 1 TAB PO QDAY, #90 TAB 3 Refills Prov:AMEENA REECE MD 09/06/17 Pregabalin (LYRICA) 50 Mg Capsule, 1 CAP PO TID, #270 CAPSULE 3 Refills Prov:AMEENA REECE MD 09/06/17 Albuterol Sulfate 90 Mcg/Act (PROAIR HFA 90 MCG/ACT) 8.5 Gm Hfa.aer.ad, 2 PUFF IH Q4-6H, #3 INHALER 3 Refills Prov:AMEENA REECE MD 09/06/17 Doxycycline Hyclate (DOXYCYCLINE HYCLATE) 100 Mg Tablet, 100 MG PO BID, #180 TAB 3 Refills Prov:AMEENA REECE MD 09/06/17 Fluticasone/Salmeterol (ADVAIR 250-50 DISKUS) 1 Each Disk.w.dev, 1 EACH IH BID, #1 DISK 11 Refills Prov:AMEENA REECE MD 09/06/17 Carvedilol (CARVEDILOL) 12.5 Mg Tablet, 1 TAB PO BID, #180 TAB 3 Refills Prov:AMEENA REECE MD 09/06/17 Aripiprazole (ABILIFY) 2 Mg Tablet, 1 TAB PO QDAY, #90 TAB 3 Refills Prov:AMEENA REECE MD 09/06/17 Furosemide (FUROSEMIDE) 20 Mg Tablet, 1 TAB PO BID, #180 TAB 3 Refills Prov:AMEENA REECE MD 09/06/17 Reported Medications Vit W-Ca,Fe,FA(<1 mg) ( Formula) 1 Each Tablet, 1 TAB PO DAILY 11/14/16 Vit A/Vit C/Vit E/Zinc/Copper (PRESERVISION AREDS SOFTGEL) 1 Each Capsule, 1 EACH PO BID, CAPSULE 11/14/16 Aspirin (ASPIRIN) 81 Mg Tab.chew, 1 TAB PO DAILY 07/30/13 Discontinued Scripts Amoxicillin/Pot Clav 875-125 Mg Tab (AUGMENTIN 875-125 TABLET) 1 Each Tablet, 1 TAB PO Q12H, #20 TAB Prov:DEBBIE LEON 01/28/18 Cholecalciferol (Vitamin D3) (VITAMIN D3) 5,000 Unit Capsule, 5000 UNIT PO DAILY , #90 CAPSULE 0 Refills Prov:AMEENA REECE MD 07/27/17 Past Medical/Surgical History Patient has a past medical history of CVA, TIA, blood clot in left arm, NE, hypertension, hyperlipidemia, angioedema, pneumonia, COPD, reflux, cholecystitis , hiatal hernia, frequent UTI, pulmonary amputation of left lower leg, arthritis , back pain, type 2 diabetes, hypothyroidism, anemia, depression, skin cancer, breast cancer. Patient has surgical history of skin cancer removed from chest, cataract surgery , bilateral hip replacement, left below-knee amputation, hysterectomy, cholecystectomy. Patient has a family medical history of cancer, CAD, stroke, diabetes. Reviewed Nurses Notes: Yes Hx Smoking: Yes (1 PPD) Smoking Status: Current: Every Day Smoker Hx Substance Use Disorder: No Hx Alcohol Use: No Constitutional Vital Sign - Last 24 Hours 03/15/18 03/15/18 16:38 18:16 Temp 98.0 Pulse 84 B/P (MAP) 139/71 Pulse Ox 95 O2 Delivery Nasal Cannula O2 Flow Rate 3 Physical Exam General Appearance: The patient is alert, has no immediate need for airway protection and no current signs of toxicity. Respiratory: Chest is non tender, lungs are clear to auscultation. Cardiac: regular rate and rhythm Gastrointestinal: Abdomen is soft and non tender, no masses, bowel sounds normal. Musculoskeletal: Neck: Neck is supple and non tender. Extremities have full range of motion and are non tender. Skin: No rashes or lesions. DIFFERENTIAL DIAGNOSIS: After history and physical exam differential diagnosis was considered for hypoglycemia Medical Decision Making Data Points Laboratory Hematology Test 03/15/18 17:34 Whole Blood Glucose 133 mg/DL (75-110) Chemistry Test 03/15/18 17:34 Whole Blood Glucose 133 mg/DL (75-110) ED Course/Re-evaluation ED Course Patient was admitted to an exam room, history and physical were obtained. Differential diagnoses were considered. On examination patient was alert and oriented, she states she's feeling significantly better at this time. At that time I discussed with the patient and the family that we will go ahead and check her blood sugar, which was 106. Would then go ahead and monitor for approximately 30 minutes. I did reevaluate the patient after 41 minutes, patient 's was seen feeling significantly better. We did go ahead and recheck her blood sugar at that time. He was 136. We got the patient up and walked her. She is able to walk without any difficulties. With blood sugar going from correction patient felt significant better we'll go ahead and discharge her home at this time. I discussed this with the patient and the family and they verbalized understanding and agreement with plan. Decision to Disposition Date: March 15, 2018 Decision to Disposition Time: 18:01 Depart Departure Latest Vital Signs Vital Signs Date Time Temp Pulse Resp B/P (MAP) Pulse Ox O2 Delivery O2 Flow Rate FiO2 03/15/18 18:16 84 95 Nasal Cannula 3 03/15/18 16:38 98.0 139/71 Impression: Primary Impression: Hypoglycemia Condition: Improved Disposition: HOME OR SELF-CARE Referrals: AMEENA REECE MD (PCP) Patient Instructions: Hypoglycemia in a Person with Diabetes (ED) Additional Instructions: Continue with normal diet. Continue with your normal sliding scale for your insulin. Return to the ER if condition worsens. Follow up with your primary care provider in the next week. For the next week please check your blood sugar 2 hours after eating. Record those levels to discuss with your primary care provider. Increase fluid intake. DEBBIE LEON March 15, 2018 16:39
[2018-03-15] MEDS ORDERED: ONDANSETRON 4 MG/2 ML VIAL IVP ONE (18:05)
== END 2018-03-15 18:18 | disposition home or self-care (01) ==
LOC: ER 16:46
DX: E11.649 Type 2 diabetes mellitus with hypoglycemia without coma (principal); F17.210 Nicotine dependence, cigarettes, uncomplicated
CPT/HCPCS: 36416; 82948; 99282

== ENCOUNTER → 2018-03-15 | Outpatient (CLI) | payer MEDICARE, OTHER ==
[2016-01-12 09:52] VITALS: BMI 34.3
== END ==
LOC: AMB 15:33
PROVIDERS: ATTEND Nurse Practitioner
DX: E16.2 Hypoglycemia, unspecified (principal); R53.1 Weakness
CPT/HCPCS: A0425; A0427

== ENCOUNTER 2018-04-26 15:10 | Outpatient (RCR) | payer MEDICARE, OTHER ==
[2016-01-12 09:52] VITALS: BMI 34.3
--- NOTE | 2018-01-30 10:57 | PT INITIAL EVALUATION ---
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 Pt has been seen by this PT for previous wounds with slow healing. This PT was notified while pt was in ER yesterday in order to schedule pt quickly for wound care. Pt is planning to take a trip with her family later this week, potentially leaving on Monday, to [place]. Pt arrives with blood saturated through dressing and sock. Pt notes that she had a "hang nail" on her R) big toe that she removed and did have a small amount of blood. Pt states that she then fell asleep and when she awoke her grandson's dog was licking her toe. Pt then realized that a fairly large portion of the tip of her toe was gone and her daughter brought her to the emergency room. Pt states that she was given IV antibiotics in the ER and a prescription for further antibiotics as well. Pt notes no pain and full diabetic neuropathy in foot. REHAB PROBLEM LIST: Open wound with no skin to approximate at tip of R) Great toe PREVIOUS MEDICAL HISTORY: DMII, CVA, TIA, DVT left arm, [place], HTN, hyperlipidemia , angioedema, COPD, R) wrist fx, depression, R) UE lymphedema, CA, B) JESS with infected hardware of R) JESS and revision completed, L) BKA, skin cancer removal. OCCUPATION: Retired OBJECTIVE: Wound at R) great toe, distal tip from trauma, measures: 2.5cm L x 2.9cm W x 0.4cm D. Center of wound demos a more dusky red/purple with suspected deeper tissue injury and hematoma formation. Outer edges of wound are superficial and simply denuded with epithelium removed down to dermis. ASSESSMENT: Wound was cleansed with sterile saline and a small portion of slough removed at center without increasing bleeding. Wound was then treated with silver collagen matrix product to cover open area, followed by a layer of silver calcium alginate for hemostasis and absorption, and then the distal tip was covered with a layer of optilock for further absorption, secured with rolled gauze and then reinforced with kaylie wrap, in a retrograde fashion to address edema from ball of foot to just below knee. Grippy sock was applied and pt to return on both Mon and Monday for further care prior to her departure for [place]. Short Term Goals 1. Wound bed to remain free of signs and symptoms of infection 2. 100% granulation base without non-viable tissue 3. Wound edges to gradually epithelialize 4. Pt to be compliant with maintaining clean, dry and intact dressing between visits. Patient's Goals Wound to heal without further complication. PLAN: Coordinated care with [facility] in [place], [place]. Pt will be traveling there for an extended vacation with family and plans to depart here on 02/03/18. Pt will be seen three times this week to facilitate advanced wound care product selection that will be optimal for drainage control while attempting not to impact pt's balance and safety with ambulation, as pt has a L) BKA with prosthesis. Pt encouraged to minimize ambulation and elevate LE's above heart more frequently to address LE pitting edema, which may aide in faster healing as well. 3x/Week for one week until pt transfers to clinic in [place]. Thank you for this referral. If you have any questions, comments, or concerns about this report or plan, please contact me at . H. Brooklyn Vigil, PT, MPT MTDD
--- NOTE | 2018-02-21 08:08 | PT PLAN OF CARE ---
Physician: Ashlee Delgado MD Patient is being seen: 2x/week Therapist: Nash Tran, PT, DPT Medical Diagnosis: balance and gait Treatment Diagnosis: same, decreased strength Date of Onset: 02/23/17 Date of Initial Evaluation: 10/30/17 Date patient was last seen: 02/19/18 Number of treatments: 21 Number of cancellations/No shows: 1 INTERVENTIONS: Manual Therapy/STM/MET Strengthening/condition Range of Motion Spinal Stabilization Work Hardening/Cond Stretching Neuromuscular Re-ed Closed Chain Program Posture/Body mechanics Gait Trg/Balance Trg Home Exercise Program Therapeutic Activities GOALS: In 6 weeks pt will increase ambulation prior to fatigue to 3 laps around track (855 ft) using 4WW increasing functional endurance resulting in increased ambulation around home and community. NM In 6 weeks pt will increase strength in R LE to equal that in L LE for increased functional ability to perform transfers and ADL's. Progressing In 8 weeks, pt will be able to transition from FWW to cane independently to improve function and QOL. Progressing 10 weeks, pt will be able to ambulate on uneven ground with FWW to improve her fear of falling and improve function and QOL. NM PATIENT'S GOAL: walking with cane and walking on uneven ground Status of Patient's Goals: Progressing Patient Compliance: Good Prognosis: Good Reasons for continuing therapy: This is a progress note for Rosario Mary. She reports that she came from the "eye doctor" and received a lot of eye drops. She reports that she feels a bit off balance due to being dilated. Otherwise, she reports that she continues to feel more tired than usual. Furthermore, she reports that her prosthetic will be adjusted tomorrow. She denies any skin breakdown on her L LE. She denies any pain. She demonstrates improved gait mechanics (increased R step length, increased velocity, and no LOB) with quad cane, however, her prosthetic currently is extremely high, which causes her to vault over her L LE along with increased base of support and increased trunk movement. We will continue to fine tune her gait mechanics as her prosthetic is lowered to the correct height. Furthermore, she continues to demonstrate improved endurance and B LE strength as she continues to require increased resistance. Lastly, she is transitioning well from the FWW to quad cane and we will continue to improve gait mechanics with quad cane, B LE strength, and return to prior level of function. Posture: She demonstrated forward head, B rounded shoulders, increased thoracic kyphosis, and decreased lumbar lordosis. Strength: B hip abduction, extension, B knee flexion, and B ankle DF: 4/5 to 4+/ 5. B hip adduction, B knee extension, B ankle PF: 5/5. Special Tests: The lower extremity functional scale: 40/80; 50% impairment. 6 minute walk test: 428 feet with no rest breaks Mobility: Modified Independent If you have any questions, please contact me at [phone]. Thank you, Nash Tran, PT, DPT MTDD
== END 2018-04-29 ==
LOC: PT 15:10
PROVIDERS: ATTEND Emergency Medicine
DX: S91.101A Unspecified open wound of right great toe without damage to nail, initial encounter (principal); R26.89 Other abnormalities of gait and mobility; I89.0 Lymphedema, not elsewhere classified; Z96.643 Presence of artificial hip joint, bilateral; Z89.512 Acquired absence of left leg below knee; Z97.14 Presence of artificial left leg (complete) (partial); E55.9 Vitamin D deficiency, unspecified; E11.41 Type 2 diabetes mellitus with diabetic mononeuropathy; Z86.73 Personal history of transient ischemic attack (TIA), and cerebral infarction without residual deficits; Z86.718 Personal history of other venous thrombosis and embolism; I25.2 Old myocardial infarction; I10 Essential (primary) hypertension; E78.5 Hyperlipidemia, unspecified; J44.9 Chronic obstructive pulmonary disease, unspecified; F32.9 Major depressive disorder, single episode, unspecified; X58.XXXA Exposure to other specified factors, initial encounter; M62.81 Muscle weakness (generalized)
CPT/HCPCS: 97161

== ENCOUNTER → 2018-04-30 | Outpatient (CLI) | payer MEDICARE, OTHER ==
[2016-01-12 09:52] VITALS: BMI 34.3
--- NOTE | 2018-04-30 15:16 | RADIOLOGY IMAGING REPORT ---
FACILITY: [facility] PATIENT NAME: Rosario Mary : 1950 MR: [id number] V: [id number] EXAM DATE: ORDERING PHYSICIAN: LYNN VALERIO TECHNOLOGIST: Location: [facility] Patient: Rosario Mary : 1950 Visit/Account:[id number] Date of Sevice: 04/30/2018 THYROID HISTORY: Monitor thyroid nodules COMPARISON: November 27, 2017 FINDINGS: SIZE: Diffusely enlarged Right lobe: 8.6 x 3.7 x 6.7 cm Left lobe: 7.0 x 3.2 x 4.2 cm Isthmus: 15 mm PARENCHYMA: Diffusely heterogeneous NODULES: Right lobe: * Again noted is replacement of the normal thyroid tissue with diffuse multiple nodules with indisti nct margins. Left lobe: * Similar to the right, reidentified are diffuse multiple nodules without distinct margins replacing the normal thyroid tissue. Isthmus: * There is a stable 2.8 cm heterogeneous nodule involving the isthmus. VASCULARITY: Within normal limits. ADDITIONAL FINDINGS: None. IMPRESSION: Overall, the dimensions of the thyroid are increased when compared to prior study. The right and lef t lobes are increased in all three dimensions. Diffuse multinodular goiter with indistinct margins p redominates throughout. REFERENCE: 2015 [place] [employer] Management Guidelines for Adult Patients with Thyroid Nodules and D ifferentiated Thyroid Cancer: The [place] [employer] Guidelines Task Force on Thyroid Nodul es and Differentiated Thyroid Cancer. SONOGRAPHIC PATTERNS: * Benign: Purely cystic nodules (no solid component); estimated risk of malignancy <1 percent; no bi opsy recommended. * Very Low Suspicion: Spongiform or partially cystic nodules without any of the sonographic features described in low, intermediate, or high suspicion patterns; estimated risk of malignancy <3 percent; consider FNA at > 2 cm (Observation without FNA is also a reasonable option). * Low Suspicion: Isoechoic or hyperechoic solid nodule, or partially cystic nodule with eccentric so lid areas, without microcalcification, irregular margin or ETE (extra-thyroidal extension), or taller than wide shape; estimated risk of malignancy 5-10 percent; recommend FNA at >1.5 cm. * Intermediate Suspicion: Hypoechoic solid nodule with smooth margins without microcalcifications, E TE (extra-thyroidal extension), or taller than wide shape; estimated risk of malignancy 10-20 percent ; recommend FNA at > 1 cm. * High Suspicion: Solid hypoechoic nodule or solid hypoechoic component of a partially cystic nodule with one or more of the following features: irregular margins (infiltrative, microlobulated), microc alcifications, taller than wide shape, rim calcifications with small extrusive soft tissue component, evidence of ETE (extra-thyroidal extension); estimated risk of malignancy >70-90 percent; recommend FNA at > 1 cm. NOTES: * Although a sonographically suspicious subcentimeter thyroid nodule without evidence of extrathyroi umer extension or sonographically suspicious lymph nodes may be observed with close sonographic follow -up rather than pursuing immediate FNA, patient age and preference may modify decision-making. * A > 50% interval increase in nodule volume and/or development of new suspicious sonographic featur es are felt to be a valid reasons for potential re-aspiration of a nodule previously shown to have be nign FNA cytology. Report Dictated By: Junior Dia at 04/30/2018 3:08 PM Report E-Signed By: Junior Dia at 04/30/2018 3:13 PM WSN:[email or web address]
--- NOTE | 2018-04-30 15:29 | RADIOLOGY IMAGING REPORT ---
FACILITY: [facility] [place] PATIENT NAME: Rosario Mary : 1950 MR: [id number] V: [id number] EXAM DATE: ORDERING PHYSICIAN: LYNN VALERIO TECHNOLOGIST: Location: [facility] [place] Patient: Rosario Mary : 1950 Visit/Account:[id number] Date of Sevice: 04/30/2018 VENOUS DOPP UPPER RIGHT EXTREM HISTORY: Monitor R. IJ thrombus COMPARISON: Studies dating back to November 27, 2017 FINDINGS: Grayscale compression, duplex and color Doppler interrogation of the right upper extremity veins was performed. Jugular vein - reidentified and unchanged in appearance is thickening of the daniel of the internal ju gular vein consistent with scarring and remodeling of the previously described thrombus. This causes an area of narrowing within the IJ. Subclavian vein - Negative. Axillary vein - Negative. Basilic vein - Negative. Cephalic vein - Negative. Brachial veins - Negative. IMPRESSION: Stable chronic appearing wall thickening and remodeled thrombus within the internal jugular vein caus ing mild luminal narrowing. No progression of the stenosis or wall thickening is noted Report Dictated By: Junior Dia at 04/30/2018 3:21 PM Report E-Signed By: Junior Dia at 04/30/2018 3:26 PM WSN:[email or web address]
== END ==
LOC: US 02:15
PROVIDERS: ATTEND Surgery
DX: E04.2 Nontoxic multinodular goiter (principal); I82.C11 Acute embolism and thrombosis of right internal jugular vein
CPT/HCPCS: 76536

== ENCOUNTER → 2018-05-10 | Outpatient (REF) | payer MEDICARE, OTHER ==
[2016-01-12 09:52] VITALS: BMI 34.3
[~2018-05-10] MED LIST changes: -ROSU10TA13 PO; +ROSU10TA5 PO
== END ==
LOC: ZZSENDIN 14:22
PROVIDERS: ATTEND Family Medicine
DX: I50.9 Heart failure, unspecified (principal)
CPT/HCPCS: 83880

== ENCOUNTER 2018-05-12 13:09 | Emergency (ER) | payer MEDICARE, OTHER ==
[2016-01-12 09:52] VITALS: Wt 90.3 kg
--- NOTE | 2018-05-12 13:12 | ER Report ---
History and Physical Time Seen By MD: 13:11 HPI/ROS CHIEF COMPLAINT: Chest congestion HISTORY OF PRESENT ILLNESS: Patient is a 68-year-old female with multiple medical problems who presents emergency Department with some chest congestion and tightness that has been present since . She did follow up with her primary care provider who did note some abnormal breath sounds. Patient had a BNP drawn by her primary care provider and was normal at 51. Patient states that she wears oxygen chronically 3 L nasal cannula continuously. She does have a history of COPD and does have a nebulizer but has not used it. As any productive cough she denies fevers or chills. She denies any racing heart rate. She does say symptoms are worse with exertion. Symptoms have been constant since this past . REVIEW OF SYSTEMS: Constitutional: No fever, no chills. Eyes: No discharge. ENT: No sore throat. Cardiovascular: No chest pain, no palpitations. Respiratory: Chest congestion Gastrointestinal: No abdominal pain, no vomiting. Genitourinary: No hematuria. Musculoskeletal: No back pain. Skin: No rashes. Neurological: No headache. Allergies: Coded Allergies: hydrocodone (Verified Allergy, Severe, 05/12/18) angioedema lisinopril (Verified Allergy, Severe, 05/12/18) angioedema sulfamethoxazole (Verified Allergy, Severe, 05/12/18) angioedema trimethoprim (Verified Allergy, Severe, 05/12/18) angioedema morphine (Verified Allergy, Intermediate, MENTAL STATUS CHANGES, 05/12/18) vancomycin (Verified Allergy, Mild, HIVES, 05/12/18) Pt was given Vanco on 07/14/15 at [facility], had hives to chest and ABD, resolved with discontinuation of medication and benadryl. metoprolol (Verified Allergy, Unknown, 05/12/18) bupropion (Verified Adverse Reaction, Unknown, Moodiness, 05/12/18) Uncoded Allergies: TAPE (Allergy, Mild, 09/06/07) Home Meds Active Scripts Albuterol Sulfate 0.083% (ALBUTEROL SULFATE 0.083%) 2.5 Mg/3 Ml Vial.neb, 2.5 MG INH Q6H for cough/shortness of breath, #1 BOX 1 Refill Prov:PALLAVI REYES MD 05/12/18 Insulin Glargine (LANTUS) 100 Unit/Ml Soln, 35.31 UNIT SUBQ BID, #6 BOX 3 Refills 35 units subq QAM 31 units subq QHS Prov:AMEENA REECE MD 04/06/18 Tramadol Hcl (TRAMADOL HCL) 50 Mg Tablet, 2 TAB PO BID, #360 TAB 4 Refills Prov:AMEENA REECE MD 02/06/18 Insulin Lispro 100 Un/Ml Vial (HUMALOG 100 U/ML VIAL) 100 Unit/1 Ml Vial, 10 UNITS SQ SS, #3 VIAL 0 Refills Prov:AMEENA REECE MD 01/11/18 Lancets (FREESTYLE LANCETS) 1 Each Each, EACH MC BID, #1 3 Refills Prov:AMEENA REECE MD 01/08/18 Blood Sugar Diagnostic (GLUCOSE TEST STRIP) 1 Each Strip, 1 EACH MC BID, #6 BOTTLE 3 Refills Prov:AMEENA REECE MD 01/08/18 Rivaroxaban 20 Mg (XARELTO 20 MG) 20 Mg Tablet, 1 TAB PO QDAY, #90 TAB 6 Refills Prov:AMEENA REECE MD 12/01/17 Diclofenac Sodium 1% Gel (VOLTAREN 1% GEL) 100 Gm Gel..gram., 1 EACH TOP BID, # 1 TUBE 0 Refills Prov:AMEENA REECE MD 09/13/17 Rosuvastatin Calcium (Rosuvastatin Calcium) 10 Mg Tablet, 1 TAB PO DAILY, #90 TAB 3 Refills Prov:AMEENA REECE MD 09/06/17 Duloxetine Hcl (CYMBALTA) 60 Mg Capsule.dr, 60 MG PO QDAY, #90 CAP 4 Refills Prov:AMEENA REECE MD 09/06/17 Potassium Chloride (KLOR-CON M20) 20 Meq Tab.er.prt, 1 TAB PO QDAY, #90 TAB 3 Refills Prov:AMEENA REECE MD 09/06/17 Pregabalin (LYRICA) 50 Mg Capsule, 1 CAP PO TID, #270 CAPSULE 3 Refills Prov:AMEENA REECE MD 09/06/17 Albuterol Sulfate 90 Mcg/Act (PROAIR HFA 90 MCG/ACT) 8.5 Gm Hfa.aer.ad, 2 PUFF IH Q4-6H, #3 INHALER 3 Refills Prov:AMEENA REECE MD 09/06/17 Doxycycline Hyclate (DOXYCYCLINE HYCLATE) 100 Mg Tablet, 100 MG PO BID, #180 TAB 3 Refills Prov:AMEENA REECE MD 09/06/17 Fluticasone/Salmeterol (ADVAIR 250-50 DISKUS) 1 Each Disk.w.dev, 1 EACH IH BID, #1 DISK 11 Refills Prov:AMEENA REECE MD 09/06/17 Carvedilol (CARVEDILOL) 12.5 Mg Tablet, 1 TAB PO BID, #180 TAB 3 Refills Prov:AMEENA REECE MD 09/06/17 Aripiprazole (ABILIFY) 2 Mg Tablet, 1 TAB PO QDAY, #90 TAB 3 Refills Prov:AMEENA REECE MD 09/06/17 Furosemide (FUROSEMIDE) 20 Mg Tablet, 1 TAB PO BID, #180 TAB 3 Refills Prov:AMEENA REECE MD 09/06/17 Reported Medications Vit W-Ca,Fe,FA(<1 mg) ( Formula) 1 Each Tablet, 1 TAB PO DAILY 11/14/16 Vit A/Vit C/Vit E/Zinc/Copper (PRESERVISION AREDS SOFTGEL) 1 Each Capsule, 1 EACH PO BID, CAPSULE 11/14/16 Aspirin (ASPIRIN) 81 Mg Tab.chew, 1 TAB PO DAILY 07/30/13 Past Medical/Surgical History Past medical history for TIA, history of atrial fibrillation, CHF, coronary artery disease, hyperlipidemia, hypertension, myocardial infarction in 2013. History of COPD, history of peptic ulcer disease, history of type II diabetes that is insulin requiring. History of breast cancer 1996 status post right mastectomy with clear nodes. History of skin cancer. Surgical history for cataract extraction, cholecystectomy, hysterectomy, mastectomy, total hip replacement in 1999 and 2015 and knee replacement in 2011 there is a family history of PE and her daughter which was fatal. Patient has a history of DVT and is on anticoagulation Hx Smoking: Yes (1 PPD) Smoking Status: Current: Every Day Smoker Hx Substance Use Disorder: No Hx Alcohol Use: No Constitutional Vital Sign - Last 24 Hours 05/12/18 05/12/18 05/12/18 05/12/18 13:19 13:28 13:45 13:45 Temp 98.4 Pulse 83 78 Resp 22 16 B/P (MAP) 131/69 Pulse Ox 96 93 O2 Delivery Room Air Nasal Cannula O2 Flow Rate 3.0 3.0 05/12/18 05/12/18 05/12/18 05/12/18 13:50 15:08 15:08 15:14 Pulse 82 83 85 Resp 16 16 16 Pulse Ox 97 O2 Delivery Nasal Cannula O2 Flow Rate 3.0 Physical Exam General/Constitutional: Patient is awake, alert, nontoxic patient chronically wears 3 L nasal cannula O2 continuously. Head: Normocephalic and atraumatic. Eyes: Conjunctival clear, Pupils are equal and reactive to light. Sclera are clear and anicteric. Ears:External canals are clear. Tympanic membranes are clear with normal landmarks and light reflex. Nares: No rhinorrhea or bleeding. Turbinates are pink and moist. Oropharyngeal: Mucous membranes are moist. There is no pharyngeal erythema or exudate. There are no palatal petechiae. Uvula is midline and symmetrical. Neck: Supple, no adenopathy. Cardiovascular: Heart is regular rate and rhythm without audible murmurs, rubs or gallops. Pulmonary: Lungs are noted for prolonged expiratory phase with wheezing there is also scattered rhonchi noted Abdomen: Soft, nontender, no guarding or peritoneal signs. Extremities: No gross deformities, No peripheral cyanosis. Able to move all 4 extremities. Neuro: Alert and oriented X3, it. Skin: No rashes, skin is warm dry and well perfused. Medical Decision Making Data Points Result Diagram: 05/12/18 1416 05/12/18 1416 Laboratory Hematology Test 05/12/18 14:16 Red Blood Count 4.64 M/uL (4.17-5.56) Mean Corpuscular Volume 83.6 fL (80.0-96.0) Mean Corpuscular Hemoglobin 28.3 pg (26.0-33.0) Mean Corpuscular Hemoglobin Concent 33.9 g/dL (32.0-36.0) Red Cell Distribution Width 15.5 % (11.5-14.5) Mean Platelet Volume 8.9 fL (7.2-11.1) Neutrophils (%) (Auto) 78.7 % (39.4-72.5) Lymphocytes (%) (Auto) 13.6 % (17.6-49.6) Monocytes (%) (Auto) 5.3 % (4.1-12.4) Eosinophils (%) (Auto) 1.7 % (0.4-6.7) Basophils (%) (Auto) 0.7 % (0.3-1.4) Nucleated RBC Relative Count (auto) 0.0 /100WBC Neutrophils # (Auto) 8.0 K/uL (2.0-7.4) Lymphocytes # (Auto) 1.4 K/uL (1.3-3.6) Monocytes # (Auto) 0.5 K/uL (0.3-1.0) Eosinophils # (Auto) 0.2 K/uL (0.0-0.5) Basophils # (Auto) 0.1 K/uL (0.0-0.1) Nucleated RBC Absolute Count (auto) 0.00 K/uL Prothrombin Time 17.5 seconds (12.0-14.4) Prothromb Time International Ratio 1.42 Activated Partial Thromboplast Time 36 seconds (23-35) Sodium Level 139 mmol/L (137-145) Potassium Level 3.6 mmol/L (3.5-5.0) Chloride Level 96 mmol/L (98-107) Carbon Dioxide Level 34 mmol/L (22-31) Blood Urea Nitrogen 8 mg/dl (7-18) Creatinine 0.60 mg/dl (0.52-1.04) Glomerular Filtration Rate Calc > 60.0 Random Glucose 157 mg/dl (75-110) Calcium Level 9.0 mg/dl (8.4-10.2) Total Bilirubin 0.5 mg/dl (0.2-1.3) Aspartate Amino Transf (AST/SGOT) 20 U/L (0-35) Alanine Aminotransferase (ALT/SGPT) 21 U/L (0-56) Alkaline Phosphatase 91 U/L (0-126) Troponin I < 0.012 ng/ml B-Type Natriuretic Peptide 67 pg/ml (0-100) Total Protein 6.9 g/dl (6.3-8.2) Albumin 4.1 g/dl (3.5-5.0) Chemistry Test 05/12/18 14:16 White Blood Count 10.1 k/uL (4.5-11.0) Red Blood Count 4.64 M/uL (4.17-5.56) Hemoglobin 13.1 g/dL (12.0-16.0) Hematocrit 38.8 % (34.0-47.0) Mean Corpuscular Volume 83.6 fL (80.0-96.0) Mean Corpuscular Hemoglobin 28.3 pg (26.0-33.0) Mean Corpuscular Hemoglobin Concent 33.9 g/dL (32.0-36.0) Red Cell Distribution Width 15.5 % (11.5-14.5) Platelet Count 145 K/uL (150-450) Mean Platelet Volume 8.9 fL (7.2-11.1) Neutrophils (%) (Auto) 78.7 % (39.4-72.5) Lymphocytes (%) (Auto) 13.6 % (17.6-49.6) Monocytes (%) (Auto) 5.3 % (4.1-12.4) Eosinophils (%) (Auto) 1.7 % (0.4-6.7) Basophils (%) (Auto) 0.7 % (0.3-1.4) Nucleated RBC Relative Count (auto) 0.0 /100WBC Neutrophils # (Auto) 8.0 K/uL (2.0-7.4) Lymphocytes # (Auto) 1.4 K/uL (1.3-3.6) Monocytes # (Auto) 0.5 K/uL (0.3-1.0) Eosinophils # (Auto) 0.2 K/uL (0.0-0.5) Basophils # (Auto) 0.1 K/uL (0.0-0.1) Nucleated RBC Absolute Count (auto) 0.00 K/uL Prothrombin Time 17.5 seconds (12.0-14.4) Prothromb Time International Ratio 1.42 Activated Partial Thromboplast Time 36 seconds (23-35) Glomerular Filtration Rate Calc > 60.0 Calcium Level 9.0 mg/dl (8.4-10.2) Total Bilirubin 0.5 mg/dl (0.2-1.3) Aspartate Amino Transf (AST/SGOT) 20 U/L (0-35) Alanine Aminotransferase (ALT/SGPT) 21 U/L (0-56) Alkaline Phosphatase 91 U/L (0-126) Troponin I < 0.012 ng/ml B-Type Natriuretic Peptide 67 pg/ml (0-100) Total Protein 6.9 g/dl (6.3-8.2) Albumin 4.1 g/dl (3.5-5.0) Coagulation Test 05/12/18 14:16 Prothrombin Time 17.5 seconds Prothromb Time International Ratio 1.42 Activated Partial Thromboplast Time 36 seconds EKG/Imaging EKG Interpretation EKG shows normal sinus rhythm without significant ST segment or T-wave abnormalities. Monitor Interpretation: Normal Sinus Rhythm Imaging cxr- neg ED Course/Re-evaluation ED Course 05/12/2018 1:47:58 pm plan at this time will be to perform cardiac workup including troponin and brain atretic peptide. We'll obtain chest x-ray and give the patient a DuoNeb breathing treatment at this time. 05/12/2018 1:56:14 pm patient states improvement in her chest congestion status post DuoNeb. Repeat chest exam reveals much clear lungs are still audible wheeze. We will probably administer a 2nd DuoNeb treatment prior to discharge Decision to Disposition Date: May 12, 2018 Decision to Disposition Time: 15:38 Depart Departure Latest Vital Signs Vital Signs Date Time Temp Pulse Resp B/P (MAP) Pulse Ox O2 Delivery O2 Flow Rate FiO2 05/12/18 15:14 85 16 05/12/18 15:08 97 Nasal Cannula 3.0 05/12/18 13:19 98.4 131/69 Impression: Primary Impression: Reactive airway disease Condition: Improved Disposition: HOME OR SELF-CARE Referrals: AMEENA REECE MD (PCP) 2 Days if symptoms persist New Scripts Albuterol Sulfate 0.083% (ALBUTEROL SULFATE 0.083%) 2.5 Mg/3 Ml Vial.neb 2.5 MG INH Q6H for cough/shortness of breath, #1 BOX 1 Refill Prov: PALLAVI REYES MD 05/12/18 Patient Instructions: Reactive Airways Disease (DC) Problem Qualifiers Primary Impression: Reactive airway disease Asthma severity: mild Asthma persistence: intermittent Asthma complication type: uncomplicated Qualified Codes: J45.20 - Mild intermittent asthma, uncomplicated PALLAVI REYES MD May 12, 2018 13:12
[2018-05-12] MEDS ORDERED: ALBUTEROL/IPRATROPIUM 3 ML NEB NEB ONE ×2 (13:35→14:45)
--- NOTE | 2018-05-12 13:55 | EKG ---
FACILITY: [facility] - [place] PATIENT NAME: FAUSTINO GALVAN : [id number] MR: [id number] V: [id number] EXAM DATE: ORDERING PHYSICIAN: PALLAVI REYES TECHNOLOGIST: VIK Test Reason : SOB Blood Pressure : / mmHG Vent. Rate : 078 BPM Atrial Rate : 078 BPM P-R Int : 174 ms QRS Dur : 090 ms QT Int : 388 ms P-R-T Axes : 000 037 072 degrees QTc Int : 442 ms Sinus rhythm Unusual P wave morphology When compared with ECG of 01-AUG-2017 08:30, No significant change was found Confirmed by BRADEN AVALOS ([id number]) on 05/12/2018 6:39:26 PM Referred By: AMY Confirmed By:BRADEN AVALOS
[2018-05-12 14:00] VITALS: BP 133/64
[2018-05-12 14:21] LABS: PLATELET COUNT, AUTOMATED 145 K/uL (150-450)
[2018-05-12] MEDS ORDERED: ALBU2.5V36 INH (14:22)
[2018-05-12 14:30] LABS: INR 1.42
[2018-05-12] MEDS ORDERED: HEPARIN FLSH (PORT) 500 UN/5ML IVP ONE (15:45)
--- NOTE | 2018-05-12 19:51 | RADIOLOGY IMAGING REPORT ---
FACILITY: [facility] PATIENT NAME: Rosario Mary : 1950 MR: [id number] V: [id number] EXAM DATE: ORDERING PHYSICIAN: PALLAVI REYES TECHNOLOGIST: Location: [facility] - [place] Patient: Rosario Mary : 1950 Visit/Account:[id number] Date of Sevice: 05/12/2018 EXAMINATION: Portable chest radiograph single view at 1520 hours HISTORY: Cough, smoker. COMPARISON: 12/09/2016. FINDINGS: A single portable AP view of the chest is obtained. Lines/tubes: There is a left IJ central venous port with the tip overlying the distal SVC, unchanged . Lungs/pleura: No focal consolidation or pleural effusion. Heart: Negative. Mediastinum: Atherosclerotic calcifications of the aorta. Bony structures/body wall: Moderate degenerative changes of the left glenohumeral joint. IMPRESSION: No radiographic evidence of acute cardiopulmonary disease. Report Dictated By: Deborah Garrett MD at 05/12/2018 4:01 PM Report E-Signed By: Deborah Garrett MD at 05/12/2018 4:02 PM WSN:[id number]
== END 2018-05-12 15:51 | disposition home or self-care (01) ==
LOC: ER 13:16
DX: J45.20 Mild intermittent asthma, uncomplicated (principal); R06.02 Shortness of breath
CPT/HCPCS: 36415; 71045; 83880; 84484; 85025; 85610; 85730; 93005; 94640; 96374; 99284; J1642; J7620; 82040; 82247; 82310; 82374; 82435; 82565; 82947; 84075; 84132; 84155; 84295; 84450; 84460; 84520

== ENCOUNTER 2018-05-24 14:00 | Outpatient (RCR) | payer MEDICARE, OTHER ==
[2016-01-12 09:52] VITALS: BMI 34.3
--- NOTE | 2018-05-07 17:28 | PT PLAN OF CARE ---
Physician: Dr. Delgado Patient is being seen: Rosario Mary Therapist: Arian Vigil, PT, MPT Medical Diagnosis: trauma injury to distal tip of R) great toe; diabetic neuropathy Treatment Diagnosis: same Date of Onset: 01/28/18 Date of Initial Evaluation: 01/29/18 Date patient was last seen: 05/03/18 Number of treatments: 17 wound care visits Number of cancellations/No shows: 0 INTERVENTIONS: Selective, non-excisional debridement with the use of tweezers and scissors to address any non-viable tissue. Advanced wound care product selection that will be optimal for drainage control while attempting not to impact pt's balance and safety with ambulation, as pt has a L) BKA with prosthesis. Pt encouraged to minimize ambulation and elevate LE's above heart more frequently to address LE pitting edema, which may aide in faster healing as well. Pt has tried a cast shoe, an stretchy neoprene "aqua sock" shoe and has chosen to ambulate with only a sock in place. Today, pt finally arrives with her original diabetic tennise shoe, hoping that it might fit now. GOALS: 1. Wound bed to remain free of signs and symptoms of infection- on going 2. 100% granulation base without non-viable tissue- progressing well 3. Wound edges to gradually epithelialize- progressing well 4. Pt to be compliant with maintaining clean, dry and intact dressing between visits. - fair; pt now willing to try diabetic shoe for protection. PATIENT'S GOAL: Wound to heal without further complication. Status of Patient's Goals: Progressing gradually Patient Compliance: Fair - with foot wear Prognosis: Good Reasons for continuing therapy: Pt demos gradual improvement in wound base and edges healing inward. Pt would benefit from further wound care to address ongoing debridement to minimize epibole at wound edges and encourage healthy wound closure. Wound at R) great toe currently measures: 0.5cm L x 0.3cm W x 0.3cm D. Wound at R) plantar surface of heel also is improving gradually from previous large blister, currently measures: 0.3cm L x 0.3cm W x 0.2cm D. Thank you for this referral. If you have any questions, comments, or concerns about this report or plan, please contact me at . Arian Vigil, PT, MPT MTDD
[~2018-05-24 14:00] MED LIST changes: +ALBU2.5V36 INH
== END 2018-05-24 18:00 | disposition home or self-care (01) ==
LOC: PT 14:00
PROVIDERS: ATTEND Emergency Medicine
DX: S91.101A Unspecified open wound of right great toe without damage to nail, initial encounter (principal); R26.89 Other abnormalities of gait and mobility; I89.0 Lymphedema, not elsewhere classified; Z96.643 Presence of artificial hip joint, bilateral; Z89.512 Acquired absence of left leg below knee; Z97.14 Presence of artificial left leg (complete) (partial); E55.9 Vitamin D deficiency, unspecified; E11.41 Type 2 diabetes mellitus with diabetic mononeuropathy; Z86.73 Personal history of transient ischemic attack (TIA), and cerebral infarction without residual deficits; Z86.718 Personal history of other venous thrombosis and embolism; I25.2 Old myocardial infarction; I10 Essential (primary) hypertension; E78.5 Hyperlipidemia, unspecified; J44.9 Chronic obstructive pulmonary disease, unspecified; F32.9 Major depressive disorder, single episode, unspecified; X58.XXXA Exposure to other specified factors, initial encounter; M62.81 Muscle weakness (generalized)

== ENCOUNTER 2018-05-25 12:42 | Outpatient (RCR) | payer MEDICARE, OTHER ==
[2016-01-12 09:52] VITALS: BMI 34.3
[2018-03-07] MEDS: LIDOCAINE/SOD BICARB 8.4% SYR ID PRN (14:17)
[2018-03-07] MEDS: HEPARIN FLSH (PORT) 500 UN/5ML IVP PRN (14:17)
[2018-03-07 14:18] LABS: PLATELET COUNT, AUTOMATED 231 K/uL (150-450)
[2018-03-07 14:19] VITALS: BP 117/53
[2018-03-09 12:53] VITALS: BP 119/70
--- NOTE | 2018-03-09 18:25 | ONCOLOGY FOLLOW UP NOTE ---
EVENT DATE: March 09, 2018 DIAGNOSES 1. Iron deficiency anemia with no response to iron supplement. 2. Type 2 diabetes mellitus on insulin. 3. Infected right hip replacement. 4. Depression. 5. Gastroesophageal reflux disease. 6. Hypertension. 7. History of breast cancer status post right mastectomy. 8. Sleep apnea. CHIEF COMPLAINT The patient is here today for followup of her iron deficiency anemia. HEMATOLOGY HISTORY The patient is a 67-year-old female who had a right hip replacement fifteen years ago and apparently this became infected in 2013, treated with long-term antibiotics. She ultimately required exploration with antibiotic spacer placed. The patient currently is receiving oral antibiotic under the care of Dr. Mendoza in [place]. The patient had PICC line placed and she had catheter- related thrombosis recently for which the patient was put on Xarelto 20 mg daily. As per patient, she had a GI workup for evaluation of her iron deficiency anemia by Dr. Lara and, as per patient, she was found to have a bleeding small bowel ulcer. The patient was put on iron with ferrous sulfate 325 mg three times daily, but she continues to have anemia, and she received two units of packed RBCs on March 08, 2016. Her CBC on February 22, 2016 showed white count 8000, hemoglobin 8.9, hematocrit 28.7 and MCV 80.9 with platelets 176, 000. The patient is referred for further evaluation and management of her iron deficiency anemia which is not responding to the oral iron supplementation. HISTORY OF PRESENT ILLNESS Patient is here today for followup of her iron deficiency anemia. Patient is currently on ferrous sulfate 325 mg once daily. She is totally asymptomatic today except for mild swelling of the right lower extremity. PAST MEDICAL HISTORY 1. Iron deficiency anemia. 2. Infected right hip replacement 3. COPD. 4. Atrial fibrillation. 5. Depression. 6. Hyperlipidemia. 7. Obesity. 8. GERD. 9. Hypertension. 10. Type 2 diabetes. 11. History of breast cancer. 12. History of non-ST elevated myocardial infarction. 13. History of bladder dysfunction. 14. Sleep apnea. 15. Chronic pain syndrome. 16. Congestive heart failure. PAST SURGICAL HISTORY 1. Hysterectomy. 2. Cholecystectomy. 3. Right mastectomy for breast cancer. 4. Left leg [id number] amputation. 5. Broken right calcaneus bone. SOCIAL HISTORY The patient is a with two children. She smokes little. Denies any abuse of alcohol or illicit drugs. 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 FAMILY HISTORY Mother with breast cancer. She has also brother and sister with cancer. CURRENT MEDICATIONS 1. Lasix 20 mg twice daily. 2. Insulin Lantus 30 units subcutaneously twice daily. 3. Xarelto 20 mg daily. 4. Protonix 40 mg twice daily. 5. Doxycycline 100 mg b.i.d. 6. Ferrous sulfate 150 mg capsule of polysaccharide iron 150 once daily. 7. Lyrica 50 mg three times daily. 8. Exubinex HFA 15 gm one to two puffs by inhalation three times daily as needed for wheezing. 9. Humalog insulin subcutaneously sliding scale. 10. Abilify 2 mg daily. 11. Vitamin D3 at 1000 units daily. 12. Magnesium oxide 400 mg daily in two divided doses. 13. Celexa 40 mg daily. 14. Aspirin 81 mg daily. ALLERGIES 1. HYDROCODONE. 2. LISINOPRIL. 3. MORPHINE. 4. SULFAMETHOXAZOLE. 5. TRIMETHOPRIM. 6. VANCOMYCIN. REVIEW OF SYSTEMS CONSTITUTIONAL: No appetite or weight change. No fever, chills or sweating. No recent infection. HEENT: Ears: No tinnitus or hearing problem. Nose: Patient has nasal discharge. Throat: No sore throat or mouth ulcers. Eyes: No diplopia or visual changes. RESPIRATORY: Patient has cough with wheezing. CARDIOVASCULAR: No chest pain, orthopnea, or paroxysmal nocturnal dyspnea (PND) . No edema. No palpitations. GASTROINTESTINAL: No nausea or vomiting. No diarrhea or constipation. No change in bowel movements. No heartburn or swallowing difficulties. No abdominal pain. No jaundice. No hematemesis, melena or rectal bleeding. GENITOURINARY: No hematuria or dysuria. MUSCULOSKELETAL: No pain in the muscles, joints or bones. NEUROLOGICAL: No tingling or numbness in the hands or feet. No headaches or convulsions. HEMATOLOGIC/LYMPHATIC: No bleeding or easy bruising. No weakness or fatigue. No enlarged lymph nodes. SKIN: No skin rash or lumps. PSYCHIATRIC: No anxiety or depression. PHYSICAL EXAMINATION GENERAL: Looks stable. Well-developed, well-nourished, and in no acute distress. VITAL SIGNS: Blood pressure 119/70, pulse 82 per minute, respirations 16 per minute, temperature 98.6, pulse ox 97% on 3L oxygen. HEENT: Head: Atraumatic. No sinus tenderness to palpation. Eyes: No icterus or conjunctivitis. Mouth and throat: No oral thrush or mucositis. NECK: Supple. No cervical or supraclavicular lymphadenopathy. LUNGS: Clear to auscultation and percussion bilaterally. HEART: Regular rate and rhythm. No gallops, murmurs, clicks or rubs. ABDOMEN: Soft and lax. No tenderness. No hepatosplenomegaly. No masses. EXTREMITIES: Right lower extremity has edema and left lower extremity is artificial. LYMPHATICS: No peripheral lymphadenopathy. NEUROLOGICAL: Conscious, alert and oriented times three. No focal motor or sensory deficits. PSYCHIATRIC: Mood and affect appear normal. SKIN: No skin rash, bruise or purpuric eruption. DIAGNOSTIC DATA CBC showed white count 12.7, hemoglobin 13.9, hematocrit 41.7, platelets 231, 000. Iron studies show a serum iron 59, TIBC 351, iron saturation 16.8%, and ferritin 18 which is down from 28. ASSESSMENT 1. Iron deficiency anemia with no response to oral iron supplementation. Patient had gastrointestinal workup by Dr. Lara and the patient was found to have a small bowel ulcer. She was maintained on Xarelto for deep venous thrombosis of the left upper extremity, which was discontinued, but the patient was put back on anticoagulation because of carotid artery thrombosis. Patient showed poor response to iron supplementation. She received infusion of iron supplementation in the form of Injectafer with improvement of her iron deficiency. Her hemoglobin improved from 8.6 to 11.8 and her current hemoglobin is 13.9. Her iron studies today showed ferritin iron 59, TIBC 351, iron saturation 16.8 and ferritin 18 which is down from 28. I am planning to continue one pill of ferrous gluconate daily. I will see her again in three months with CBC and iron studies with ferritin at that time. 2. Deep venous thrombosis, left upper extremity, resolved with Xarelto. 3. 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 4. Type 2 diabetes on insulin. 5. Gastroesophageal reflux disease. 6. History of breast cancer status post right mastectomy. PLAN 1. Continue ferrous gluconate 150 mg once daily. 2. Patient to return in three months with CBC, iron studies with ferritin. 3. Consider Injectafer if the patient will develop iron deficiency in the future. 4. Patient is to contact us for any new concern or complaints. MTDD
[2018-04-09] MEDS: HEPARIN FLSH (PORT) 500 UN/5ML IVP PRN (13:23)
[2018-04-09] MEDS: LIDOCAINE/SOD BICARB 8.4% SYR ID PRN (13:23)
[2018-05-09] MEDS: HEPARIN FLSH (PORT) 500 UN/5ML IVP PRN (12:52)
[2018-05-09] MEDS: LIDOCAINE/SOD BICARB 8.4% SYR ID PRN (12:52)
[2018-05-09 13:01] VITALS: BP 122/56
[2018-05-24 13:32] VITALS: BP 122/51
[2018-05-24 13:45] LABS: PLATELET COUNT, AUTOMATED 165 K/uL (150-450)
[2018-05-24] MEDS: HEPARIN FLSH (PORT) 500 UN/5ML IVP PRN (13:45)
[2018-05-24] MEDS: LIDOCAINE/SOD BICARB 8.4% SYR ID PRN (13:45)
[~2018-05-25 12:42] MED LIST changes: +ALTEPLASE RECOMB 2 MG VIAL IVP PRN; +DEXTROSE 5%(*) 100 ML BAG 100 ML IVPB PRN; +NS(*) 0.9% 100 ML BAG 100 ML IVPB PRN; +NS(*) 0.9% 500 ML BAG 500 ML IV PRN; +WATER FOR INJ,STERILE 20 ML IVP PRN
[2018-05-25 13:23] VITALS: BP 115/55
--- NOTE | 2018-05-25 16:47 | ONCOLOGY FOLLOW UP NOTE ---
EVENT DATE: May 25, 2018 DIAGNOSES 1. Iron deficiency anemia with no response to iron supplement. 2. Type 2 diabetes mellitus on insulin. 3. Infected right hip replacement. 4. Depression. 5. Gastroesophageal reflux disease. 6. Hypertension. 7. History of breast cancer status post right mastectomy. 8. Sleep apnea. CHIEF COMPLAINT The patient is here today for followup of her iron deficiency anemia. HEMATOLOGY HISTORY The patient is a 67-year-old female who had a right hip replacement fifteen years ago and apparently this became infected in 2013, treated with long-term antibiotics. She ultimately required exploration with antibiotic spacer placed. The patient currently is receiving oral antibiotic under the care of Dr. Mendoza in [place]. The patient had PICC line placed and she had catheter- related thrombosis recently for which the patient was put on Xarelto 20 mg daily. As per patient, she had a GI workup for evaluation of her iron deficiency anemia by Dr. Lara and, as per patient, she was found to have a bleeding small bowel ulcer. The patient was put on iron with ferrous sulfate 325 mg three times daily, but she continues to have anemia, and she received two units of packed RBCs on March 08, 2016. Her CBC on February 22, 2016 showed white count 8000, hemoglobin 8.9, hematocrit 28.7 and MCV 80.9 with platelets 176, 000. The patient is referred for further evaluation and management of her iron deficiency anemia which is not responding to the oral iron supplementation. HISTORY OF PRESENT ILLNESS Patient is here today for followup of her iron deficiency anemia. She is complaining of cough with expectoration and shortness of breath. She bruises easily. She is weak, tired and fatigued. PAST MEDICAL HISTORY 1. Iron deficiency anemia. 2. Infected right hip replacement 3. COPD. 4. Atrial fibrillation. 5. Depression. 6. Hyperlipidemia. 7. Obesity. 8. GERD. 9. Hypertension. 10. Type 2 diabetes. 11. History of breast cancer. 12. History of non-ST elevated myocardial infarction. 13. History of bladder dysfunction. 14. Sleep apnea. 15. Chronic pain syndrome. 16. Congestive heart failure. PAST SURGICAL HISTORY 1. Hysterectomy. 2. Cholecystectomy. 3. Right mastectomy for breast cancer. 4. Left leg [id number] amputation. 5. Broken right calcaneus bone. SOCIAL HISTORY The patient is a with two children. She smokes little. Denies any abuse of alcohol or illicit drugs. 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 FAMILY HISTORY Mother with breast cancer. She has also brother and sister with cancer. CURRENT MEDICATIONS 1. Lasix 20 mg twice daily. 2. Insulin Lantus 30 units subcutaneously twice daily. 3. Xarelto 20 mg daily. 4. Protonix 40 mg twice daily. 5. Doxycycline 100 mg b.i.d. 6. Ferrous sulfate 150 mg capsule of polysaccharide iron 150 once daily. 7. Lyrica 50 mg three times daily. 8. Exubinex HFA 15 gm one to two puffs by inhalation three times daily as needed for wheezing. 9. Humalog insulin subcutaneously sliding scale. 10. Abilify 2 mg daily. 11. Vitamin D3 at 1000 units daily. 12. Magnesium oxide 400 mg daily in two divided doses. 13. Celexa 40 mg daily. 14. Aspirin 81 mg daily. ALLERGIES 1. HYDROCODONE. 2. LISINOPRIL. 3. MORPHINE. 4. SULFAMETHOXAZOLE. 5. TRIMETHOPRIM. 6. VANCOMYCIN. REVIEW OF SYSTEMS CONSTITUTIONAL: No appetite or weight change. No fever, chills or sweating. No recent infection. HEENT: Ears: No tinnitus or hearing problem. Nose: Patient has nasal discharge. Throat: No sore throat or mouth ulcers. Eyes: No diplopia or visual changes. RESPIRATORY: She has cough with expectoration and shortness of breath. . CARDIOVASCULAR: No chest pain, orthopnea, or paroxysmal nocturnal dyspnea (PND) . No edema. No palpitations. GASTROINTESTINAL: No nausea or vomiting. No diarrhea or constipation. No change in bowel movements. No heartburn or swallowing difficulties. No abdominal pain. No jaundice. No hematemesis, melena or rectal bleeding. GENITOURINARY: No hematuria or dysuria. MUSCULOSKELETAL: No pain in the muscles, joints or bones. NEUROLOGICAL: No tingling or numbness in the hands or feet. No headaches or convulsions. HEMATOLOGIC/LYMPHATIC: She bruises easily. She is weak, tired and fatigued. SKIN: No skin rash or lumps. PSYCHIATRIC: No anxiety or depression. PHYSICAL EXAMINATION GENERAL: Looks stable. Well-developed, well-nourished, and in no acute distress. VITAL SIGNS: Blood pressure 115/55, pulse 74 per minute, respirations 16 per minute, temperature 97.2, pulse ox 91% on 3L oxygen. HEENT: Head: Atraumatic. No sinus tenderness to palpation. Eyes: No icterus or conjunctivitis. Mouth and throat: No oral thrush or mucositis. NECK: Supple. No cervical or supraclavicular lymphadenopathy. LUNGS: Clear to auscultation and percussion bilaterally. HEART: Regular rate and rhythm. No gallops, murmurs, clicks or rubs. ABDOMEN: Soft and lax. No tenderness. No hepatosplenomegaly. No masses. EXTREMITIES: Patient has artificial leg on the left side. LYMPHATICS: No peripheral lymphadenopathy. NEUROLOGICAL: Conscious, alert and oriented times three. No focal motor or sensory deficits. PSYCHIATRIC: Mood and affect appear normal. SKIN: No skin rash, bruise or purpuric eruption. DIAGNOSTIC DATA CBC showed white count 8.1, hemoglobin 12.7, hematocrit 37.7, platelets 165, 000. Serum iron 71, TIBC 347, iron saturation 20.5%. Ferritin at 17 which is stable, it was 18 last visit. ASSESSMENT 1. Iron deficiency anemia with no response to oral iron supplementation. Patient had gastrointestinal workup by Dr. Lara and the patient was found to have a small bowel ulcer. She was maintained on Xarelto for deep venous thrombosis of the left upper extremity, which was discontinued, but the patient was put back on anticoagulation because of carotid artery thrombosis. Patient showed poor response to iron supplementation. She received infusion of iron supplementation in the form of Injectafer with improvement of her iron deficiency. Her hemoglobin improved from 8.6 to 11.8, to 13.9. Her current hemoglobin is 12.6. Her ferritin dropped from 59 to 18, but currently it is 17 , which is stable on one pill of ferrous sulfate. I am planning to continue ferrous sulfate 325 mg daily and I will see her again in three months with CBC and iron studies with ferritin. If the patient develops iron deficiency again I am planning to treat her with Injectafer as before. 2. Deep venous thrombosis, left upper extremity, resolved with Xarelto. 3. 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 4. Type 2 diabetes on insulin. 5. Gastroesophageal reflux disease. 6. History of breast cancer status post right mastectomy. PLAN 1. Continue ferrous gluconate 150 mg once daily. 2. Patient to return in three months with CBC, iron studies with ferritin. 3. Patient is to contact us for any new concerns or complaints. MTDD
== END 2018-06-04 ==
LOC: ONC 12:42
PROVIDERS: ATTEND Internal Medicine Hematology
DX: D50.9 Iron deficiency anemia, unspecified (principal); Z79.01 Long term (current) use of anticoagulants; I65.29 Occlusion and stenosis of unspecified carotid artery; E11.9 Type 2 diabetes mellitus without complications; Z79.4 Long term (current) use of insulin; K21.9 Gastro-esophageal reflux disease without esophagitis; Z85.3 Personal history of malignant neoplasm of breast; I10 Essential (primary) hypertension; G47.30 Sleep apnea, unspecified; Z79.899 Other long term (current) drug therapy
CPT/HCPCS: 36591; 82728; 83540; 83550; 85025; 96523; G0463; J1642; 82306; 83036; 99212

== ENCOUNTER 2018-07-22 16:56 | Emergency (ER) | payer MEDICARE, OTHER ==
[2016-01-12 09:52] VITALS: Wt 90.3 kg
[~2018-07-22 16:56] MED LIST changes: -ALTEPLASE RECOMB 2 MG VIAL IVP PRN; -DEXTROSE 5%(*) 100 ML BAG 100 ML IVPB PRN; -LORA2VIA IVP; +LORA2VIA2 IVP; -LOSA50TA72 PO; +LOSA50TA74 PO; -NS(*) 0.9% 100 ML BAG 100 ML IVPB PRN; -NS(*) 0.9% 500 ML BAG 500 ML IV PRN; -WATER FOR INJ,STERILE 20 ML IVP PRN
[2018-07-22] MEDS ORDERED: NS(*) 0.9% 1000 ML BAG 1,000 ML IV ONE (17:15)
[2018-07-22] MEDS ORDERED: ZOLP12.548 (17:16)
--- NOTE | 2018-07-22 17:42 | EKG ---
[place] [facility] [place]IENT NAME: FAUSTINO GALVAN : [id number] MR: [id number] V: [id number] EXAM DATE: ORDERING PHYSICIAN: PALLAVI TALLEY TECHNOLOGIST: Test Reason : Blood Pressure : / mmHG Vent. Rate : 076 BPM Atrial Rate : 075 BPM P-R Int : 176 ms QRS Dur : 090 ms QT Int : 378 ms P-R-T Axes : 000 051 079 degrees QTc Int : 425 ms Normal sinus rhythm Normal ECG When compared with ECG of 12-MAY-2018 13:42, Previous ECG has undetermined rhythm, needs review Confirmed by BRITTNEY STAPLES ([id number]) on 07/22/2018 6:15:30 PM Referred By: Confirmed By:BRITTNEY STAPLES
--- NOTE | 2018-07-22 17:46 | ER Report ---
History and Physical Time Seen By MD: 17:00 Hx. of Stated Complaint: pt has been feeling fatigued and nauseous for a week. foot is bothering her, healing wound on r foot. pt has had high sugars past week (PALLAVI TALLEY MD) HPI/ROS CHIEF COMPLAINT: fatigue, malaise, r foot pain HISTORY OF PRESENT ILLNESS: Pt reports a month of general malaise, r foot pain. States symptoms are slightly worse today, with nausea. Pt notes glucose which is usually 170 has been in the 300's this week. She denies focal symptoms other than foot pain. She has chronic r foot pain subsequent to fracture 2 yrs ago and has not had recent injury or open sore, but notes increased pain this week. REVIEW OF SYSTEMS: Constitutional: No fever, no chills. Eyes: No discharge. ENT: No sore throat. Cardiovascular: No chest pain, no palpitations. Respiratory: No cough, no shortness of breath. Gastrointestinal: No abdominal pain, no vomiting. Nausea as above Genitourinary: no uti sympotms Musculoskeletal: No back pain. Skin: No rashes. Neurological: No headache. Remainder of the 14 system rev: Yes (PALLAVI TALLEY MD) Allergies: Coded Allergies: hydrocodone (Verified Allergy, Severe, 05/12/18) angioedema lisinopril (Verified Allergy, Severe, 05/12/18) angioedema sulfamethoxazole (Verified Allergy, Severe, 05/12/18) angioedema trimethoprim (Verified Allergy, Severe, 05/12/18) angioedema morphine (Verified Allergy, Intermediate, MENTAL STATUS CHANGES, 05/12/18) vancomycin (Verified Allergy, Mild, HIVES, 05/12/18) Pt was given Vanco on 07/14/15 at [facility], had hives to chest and ABD, resolved with discontinuation of medication and benadryl. metoprolol (Verified Allergy, Unknown, 05/12/18) bupropion (Verified Adverse Reaction, Unknown, Moodiness, 05/12/18) Uncoded Allergies: TAPE (Allergy, Mild, 09/06/07) Home Meds Active Scripts Albuterol Sulfate 0.083% (ALBUTEROL SULFATE 0.083%) 2.5 Mg/3 Ml Vial.neb, 2.5 MG INH Q6H for cough/shortness of breath, #1 BOX 1 Refill Prov:PALLAVI REYES MD 05/12/18 Insulin Glargine (LANTUS) 100 Unit/Ml Soln, 35.31 UNIT SUBQ BID, #6 BOX 3 Refills 35 units subq QAM 31 units subq QHS Prov:AMEENA REECE MD 04/06/18 Tramadol Hcl (TRAMADOL HCL) 50 Mg Tablet, 2 TAB PO BID, #360 TAB 4 Refills Prov:AMEENA REECE MD 02/06/18 Insulin Lispro 100 Un/Ml Vial (HUMALOG 100 U/ML VIAL) 100 Unit/1 Ml Vial, 10 UNITS SQ SS, #3 VIAL 0 Refills Prov:AMEENA REECE MD 01/11/18 Lancets (FREESTYLE LANCETS) 1 Each Each, EACH MC BID, #1 3 Refills Prov:AMEENA REECE MD 01/08/18 Blood Sugar Diagnostic (GLUCOSE TEST STRIP) 1 Each Strip, 1 EACH MC BID, #6 BOTTLE 3 Refills Prov:AMEENA REECE MD 01/08/18 Rivaroxaban 20 Mg (XARELTO 20 MG) 20 Mg Tablet, 1 TAB PO QDAY, #90 TAB 6 Refills Prov:AMEENA REECE MD 12/01/17 Diclofenac Sodium 1% Gel (VOLTAREN 1% GEL) 100 Gm Gel..gram., 1 EACH TOP BID, #1 TUBE 0 Refills Prov:AMEENA REECE MD 09/13/17 Rosuvastatin Calcium (Rosuvastatin Calcium) 10 Mg Tablet, 1 TAB PO DAILY, #90 TAB 3 Refills Prov:AMEENA REECE MD 09/06/17 Duloxetine Hcl (CYMBALTA) 60 Mg Capsule.dr, 60 MG PO QDAY, #90 CAP 4 Refills Prov:AMEENA REECE MD 09/06/17 Potassium Chloride (KLOR-CON M20) 20 Meq Tab.er.prt, 1 TAB PO QDAY, #90 TAB 3 Refills Prov:AMEENA REECE MD 09/06/17 Pregabalin (LYRICA) 50 Mg Capsule, 1 CAP PO TID, #270 CAPSULE 3 Refills Prov:AMEENA REECE MD 09/06/17 Albuterol Sulfate 90 Mcg/Act (PROAIR HFA 90 MCG/ACT) 8.5 Gm Hfa.aer.ad, 2 PUFF IH Q4-6H, #3 INHALER 3 Refills Prov:AMEENA REECE MD 09/06/17 Doxycycline Hyclate (DOXYCYCLINE HYCLATE) 100 Mg Tablet, 100 MG PO BID, #180 TAB 3 Refills Prov:AMEENA REECE MD 09/06/17 Fluticasone/Salmeterol (ADVAIR 250-50 DISKUS) 1 Each Disk.w.dev, 1 EACH IH BID, #1 DISK 11 Refills Prov:AMEENA REECE MD 09/06/17 Carvedilol (CARVEDILOL) 12.5 Mg Tablet, 1 TAB PO BID, #180 TAB 3 Refills Prov:AMEENA REECE MD 09/06/17 Aripiprazole (ABILIFY) 2 Mg Tablet, 1 TAB PO QDAY, #90 TAB 3 Refills Prov:AMEENA REECE MD 09/06/17 Furosemide (FUROSEMIDE) 20 Mg Tablet, 1 TAB PO BID, #180 TAB 3 Refills Prov:AMEENA REECE MD 09/06/17 Reported Medications Zolpidem Tartrate (ZOLPIDEM TARTRATE ER) 12.5 Mg Tab.mphase 07/22/18 Vit W-Ca,Fe,FA(<1 mg) ( Formula) 1 Each Tablet, 1 TAB PO DAILY 11/14/16 Vit A/Vit C/Vit E/Zinc/Copper (PRESERVISION AREDS SOFTGEL) 1 Each Capsule, 1 EACH PO BID, CAPSULE 11/14/16 Aspirin (ASPIRIN) 81 Mg Tab.chew, 1 TAB PO DAILY 07/30/13 Reviewed Nurses Notes: Yes Old Medical Records Reviewed: Yes (PALLAVI TALLEY MD) Hx Smoking: Yes (1 PPD) Smoking Status: Current: Every Day Smoker Hx Substance Use Disorder: No Hx Alcohol Use: No (PALLAVI TALLEY MD) Constitutional Vital Sign - Last 24 Hours 07/22/18 07/22/18 07/22/18 07/22/18 16:56 17:02 17:04 17:11 Temp 98.3 Pulse ??? 81 78 Resp 20 B/P (MAP) 152/57 (88) 152/57 Pulse Ox 97 95 O2 Delivery Nasal Cannula 07/22/18 07/22/18 07/22/18 9/30/18 17:25 17:26 17:41 17:56 Pulse 76 76 ??? Pulse Ox 97 100 O2 Flow Rate 2.0 07/22/18 07/22/18 07/22/18 07/22/18 17:59 18:11 18:26 18:30 Pulse 76 74 B/P (MAP) 120/62 (81) 143/69 (93) Pulse Ox 97 97 07/22/18 07/22/18 07/22/18 07/22/18 18:41 18:46 19:00 19:01 Pulse 73 73 75 B/P (MAP) 129/61 (83) Pulse Ox 98 98 98 07/22/18 19:16 Pulse ??? Intake and Output 07/22/18 07/22/18 07/23/18 15:00 23:00 07:00 Intake Total 1000 ml Output Total 50 ml Balance 950 ml (SANDRA VAZQUEZ DO) Physical Exam General Appearance: [The patient is alert, has no immediate need for airway protection and no signs of toxicity.] [ ] Eyes: Pupils equal and round no pallor or injection. ENT, Mouth: Mucous membranes are moist. Respiratory: There are no retractions, lungs are clear to auscultation. Cardiovascular: Regular rate and rhythm. Gastrointestinal: Abdomen is soft and non tender, no masses, bowel sounds normal. Neurological: alert, oriented, moves all extremities Skin: Warm and dry, no rashes. Musculoskeletal: Neck is supple non tender. LLE s/p BKA RLE - no edema, focal ttp. Foot shows healed ulcers on dorsal heel as well as great toe. Mild erythema and ttp throughout heel; no focal ttp or sgs of cellulitis. DIFFERENTIAL DIAGNOSIS: After history and physical exam differential diagnosis was considered for dka, sepsis, focal infection, other endocrine /electrolyte/infectious emergency (PALLAVI TALLEY MD) Medical Decision Making Data Points Result Diagram: 07/22/18 1740 07/22/18 1740 Laboratory Hematology Test 07/22/18 17:40 07/22/18 18:35 Red Blood Count 4.55 M/uL (4.17-5.56) Mean Corpuscular Volume 81.7 fL (80.0-96.0) Mean Corpuscular Hemoglobin 27.7 pg (26.0-33.0) Mean Corpuscular Hemoglobin Concent 34.0 g/dL (32.0-36.0) Red Cell Distribution Width 14.4 % (11.5-14.5) Mean Platelet Volume 9.0 fL (7.2-11.1) Neutrophils (%) (Auto) 71.2 % (39.4-72.5) Lymphocytes (%) (Auto) 20.6 % (17.6-49.6) Monocytes (%) (Auto) 6.1 % (4.1-12.4) Eosinophils (%) (Auto) 1.5 % (0.4-6.7) Basophils (%) (Auto) 0.6 % (0.3-1.4) Nucleated RBC Relative Count (auto) 0.0 /100WBC Neutrophils # (Auto) 7.0 K/uL (2.0-7.4) Lymphocytes # (Auto) 2.0 K/uL (1.3-3.6) Monocytes # (Auto) 0.6 K/uL (0.3-1.0) Eosinophils # (Auto) 0.1 K/uL (0.0-0.5) Basophils # (Auto) 0.1 K/uL (0.0-0.1) Nucleated RBC Absolute Count (auto) 0.00 K/uL Erythrocyte Sedimentation Rate 17 mm/HOUR (0-30) Blood Gas Patient Temperature Unknown DEGREES Venous Blood pH 7.43 (7.31-7.41) Venous Blood Partial Pressure CO2 52 mmHg Venous Blood Partial Pressure O2 44 mmHg Venous Blood HCO3 35 mmol/L Venous Blood Oxygen Saturation 81 % Venous Blood Base Excess 10 mmol/L Oxygen Liters/Minute Unknown Sodium Level 137 mmol/L (137-145) Potassium Level 3.3 mmol/L (3.5-5.0) Chloride Level 94 mmol/L (98-107) Carbon Dioxide Level 33 mmol/L (22-31) Blood Urea Nitrogen 15 mg/dl (7-18) Creatinine 0.60 mg/dl (0.52-1.04) Glomerular Filtration Rate Calc > 60.0 Random Glucose 195 mg/dl (75-110) Calcium Level 9.0 mg/dl (8.4-10.2) Total Bilirubin 0.4 mg/dl (0.2-1.3) Aspartate Amino Transf (AST/SGOT) 17 U/L (0-35) Alanine Aminotransferase (ALT/SGPT) 30 U/L (0-56) Alkaline Phosphatase 75 U/L (0-126) C-Reactive Protein < 0.5 mg/dl (<1.0) Total Protein 6.6 g/dl (6.3-8.2) Albumin 3.7 g/dl (3.5-5.0) Lipase 28 U/L (23-300) Urine Color Yellow Urine Clarity Slightly-cloudy Urine pH 6.0 pH (4.8-9.5) Urine Specific [place] 1.010 Urine Protein Negative mg/dL (NEGATIVE) Urine Glucose (UA) Negative mg/dL (NEGATIVE) Urine Ketones Negative mg/dL (NEGATIVE) Urine Blood Negative (NEGATIVE) Urine Nitrite Negative (NEGATIVE) Urine Bilirubin Negative (NEGATIVE) Urine Urobilinogen Negative mg/dL (0.2-1.9) Urine Leukocyte Esterase Negative (NEGATIVE) Urine RBC <1 /HPF (0-2/HPF) Urine WBC 2 /HPF (0-5/HPF) Urine Squamous Epithelial Cells Many /LPF (NONE-FEW) Urine Calcium Oxalate Crystals Few /HPF (NONE) Urine Bacteria Negative /HPF (NONE-FEW) Urine Mucus None /HPF (NONE-FEW) Chemistry Test 07/22/18 17:40 07/22/18 18:35 White Blood Count 9.8 k/uL (4.5-11.0) Red Blood Count 4.55 M/uL (4.17-5.56) Hemoglobin 12.6 g/dL (12.0-16.0) Hematocrit 37.2 % (34.0-47.0) Mean Corpuscular Volume 81.7 fL (80.0-96.0) Mean Corpuscular Hemoglobin 27.7 pg (26.0-33.0) Mean Corpuscular Hemoglobin Concent 34.0 g/dL (32.0-36.0) Red Cell Distribution Width 14.4 % (11.5-14.5) Platelet Count 181 K/uL (150-450) Mean Platelet Volume 9.0 fL (7.2-11.1) Neutrophils (%) (Auto) 71.2 % (39.4-72.5) Lymphocytes (%) (Auto) 20.6 % (17.6-49.6) Monocytes (%) (Auto) 6.1 % (4.1-12.4) Eosinophils (%) (Auto) 1.5 % (0.4-6.7) Basophils (%) (Auto) 0.6 % (0.3-1.4) Nucleated RBC Relative Count (auto) 0.0 /100WBC Neutrophils # (Auto) 7.0 K/uL (2.0-7.4) Lymphocytes # (Auto) 2.0 K/uL (1.3-3.6) Monocytes # (Auto) 0.6 K/uL (0.3-1.0) Eosinophils # (Auto) 0.1 K/uL (0.0-0.5) Basophils # (Auto) 0.1 K/uL (0.0-0.1) Nucleated RBC Absolute Count (auto) 0.00 K/uL Erythrocyte Sedimentation Rate 17 mm/HOUR (0-30) Blood Gas Patient Temperature Unknown DEGREES Venous Blood pH 7.43 (7.31-7.41) Venous Blood Partial Pressure CO2 52 mmHg Venous Blood Partial Pressure O2 44 mmHg Venous Blood HCO3 35 mmol/L Venous Blood Oxygen Saturation 81 % Venous Blood Base Excess 10 mmol/L Oxygen Liters/Minute Unknown Glomerular Filtration Rate Calc > 60.0 Calcium Level 9.0 mg/dl (8.4-10.2) Total Bilirubin 0.4 mg/dl (0.2-1.3) Aspartate Amino Transf (AST/SGOT) 17 U/L (0-35) Alanine Aminotransferase (ALT/SGPT) 30 U/L (0-56) Alkaline Phosphatase 75 U/L (0-126) C-Reactive Protein < 0.5 mg/dl (<1.0) Total Protein 6.6 g/dl (6.3-8.2) Albumin 3.7 g/dl (3.5-5.0) Lipase 28 U/L (23-300) Urine Color Yellow Urine Clarity Slightly-cloudy Urine pH 6.0 pH (4.8-9.5) Urine Specific [place] 1.010 Urine Protein Negative mg/dL (NEGATIVE) Urine Glucose (UA) Negative mg/dL (NEGATIVE) Urine Ketones Negative mg/dL (NEGATIVE) Urine Blood Negative (NEGATIVE) Urine Nitrite Negative (NEGATIVE) Urine Bilirubin Negative (NEGATIVE) Urine Urobilinogen Negative mg/dL (0.2-1.9) Urine Leukocyte Esterase Negative (NEGATIVE) Urine RBC <1 /HPF (0-2/HPF) Urine WBC 2 /HPF (0-5/HPF) Urine Squamous Epithelial Cells Many /LPF (NONE-FEW) Urine Calcium Oxalate Crystals Few /HPF (NONE) Urine Bacteria Negative /HPF (NONE-FEW) Urine Mucus None /HPF (NONE-FEW) Urinalysis Test 07/22/18 18:35 Urine Color Yellow Urine Clarity Slightly-cloudy Urine pH 6.0 pH (4.8-9.5) Urine Specific [place] 1.010 Urine Protein Negative mg/dL (NEGATIVE) Urine Glucose (UA) Negative mg/dL (NEGATIVE) Urine Ketones Negative mg/dL (NEGATIVE) Urine Blood Negative (NEGATIVE) Urine Nitrite Negative (NEGATIVE) Urine Bilirubin Negative (NEGATIVE) Urine Urobilinogen Negative mg/dL (0.2-1.9) Urine Leukocyte Esterase Negative (NEGATIVE) Urine RBC <1 /HPF (0-2/HPF) Urine WBC 2 /HPF (0-5/HPF) Urine Squamous Epithelial Cells Many /LPF (NONE-FEW) Urine Calcium Oxalate Crystals Few /HPF (NONE) Urine Bacteria Negative /HPF (NONE-FEW) Urine Mucus None /HPF (NONE-FEW) (SANDRA VAZQUEZ DO) EKG/Imaging EKG Interpretation 12 lead EKG: Rhythm: [normal sinus rhythm] [place]: normal QRS: normal ST segments: normal [ ] Monitor Interpretation: Normal Sinus Rhythm Imaging X-ray: chest was obtained. I viewed the images myself on the PACS system. My interpretation of the images is: nacpd. X-ray: foot was obtained. I viewed the images myself on the PACS system. My interpretation of the images is: charcot foot; no acute findings when compared to prior foot xray. The radiologist interpretation had no clinically significant variation from this interpretation.. (PALLAVI TALLEY MD) ED Course/Re-evaluation ED Course 68-year-old female presents with malaise, fatigue, right foot pain. Her symptoms have been ongoing but worse today and she became concerned for potential for infection. She also notes her sugars have been running high over the past week. Patient has nonfocal exam. Labs, x-rays, EKG obtained to rule out occult infection, sepsis, fracture, ACS, DKA or other emergent etiology. Labs are remarkably normal including normal ESR and CRP. Images unchanged from prior. After 1 L of fluids patient feels significantly improved. Of note patient has blood sugar less than 200 without signs of DKA. ED evaluation does not show signs of sepsis or other emergent etiology, however given patient's significant and advanced disease processes, recommend very close follow-up for reevaluation. Patient is comfortable for discharge, so will discharge with strict return precautions and plan to call her primary doctor in the morning. (PALLAVI TALLEY MD) Decision to Disposition Date: Jul 22, 2018 Decision to Disposition Time: 19:10 (SANDRA VAZQUEZ DO) Depart Departure Latest Vital Signs Vital Signs Date Time Temp Pulse Resp B/P (MAP) Pulse Ox O2 Delivery O2 Flow Rate FiO2 07/22/18 19:16 ??? 07/22/18 19:01 98 07/22/18 19:00 129/61 (83) 07/22/18 17:25 2.0 07/22/18 17:04 98.3 20 Nasal Cannula (SANDRA VAZQUEZ DO) Impression: Primary Impression: Malaise Additional Impression: Hyperglycemia Condition: Improved Disposition: HOME OR SELF-CARE Patient Instructions: Diabetic Hyperglycemia (ED), Fatigue (ED) Additional Instructions: Follow-up with your primary care doctor early this week Problem Qualifiers PALLAVI TALLEY MD Jul 22, 2018 17:46 SANDRA VAZQUEZ DO Jul 22, 2018 19:11
[2018-07-22 17:47] LABS: PLATELET COUNT, AUTOMATED 181 K/uL (150-450)
--- NOTE | 2018-07-22 18:20 | RADIOLOGY IMAGING REPORT ---
FACILITY: [facility] - [place] PATIENT NAME: Rosario Mary : 1950 MR: [id number] V: [id number] EXAM DATE: ORDERING PHYSICIAN: PALLAVI TALLEY TECHNOLOGIST: Location: [facility] Patient: Rosario Mary : 1950 Visit/Account:[id number] Date of Sevice: 07/22/2018 CHEST SINGLE AP Indication: Shortness of breath.. Comparison: 05/12/2018. Findings: Cardiomediastinal silhouette and pulmonary vessels within normal limits. Left Port-A-Cath remains in place with the tip in SVC. There is no focal infiltrate or lobar consolidation. No pneumothorax or pleural effusion. No nodule. Upper abdomen is unremarkable. No acute bony abnormality. Degenerative change seen in the left shoulder. Surgical clips in the right axilla. IMPRESSION: 1. No acute cardiopulmonary process. Report Dictated By: Javy Benito at 07/22/2018 6:16 PM Report E-Signed By: Javy Benito at 07/22/2018 6:17 PM WSN:[id number]
--- NOTE | 2018-07-22 18:25 | RADIOLOGY IMAGING REPORT ---
FACILITY: [facility] - [place]IENT NAME: Rosario Mary : 1950 MR: [id number] V: [id number] EXAM DATE: ORDERING PHYSICIAN: PALLAVI TALLEY TECHNOLOGIST: Location: [facility] [place] Patient: Rosario Mary : 1950 Visit/Account:[id number] Date of Sevice: 07/22/2018 FOOT 3 VIEW RIGHT Indication: Right foot pain. Comparison: 01/28/2018. Findings: 3 views of the right foot were obtained. Diffuse osteopenia is again present. There is again significant deformity calcaneus which is unchange d most likely due to previous traumatic injury. There is no indication of acute fracture or dislocati on. No bony lesions. No significant degenerative changes. No periosteal abnormality. Diffuse swelling . Small calcification anterior to the talus most likely from previous injury and is stable. IMPRESSION: 1.No acute osseous abnormality of the right foot Report Dictated By: Javy Benito at 07/22/2018 6:18 PM Report E-Signed By: Javy Benito at 07/22/2018 6:21 PM WSN:[id number]
[2018-07-22 19:00] VITALS: BP 129/61
[2018-07-22] MEDS ORDERED: HEPARIN FLSH (PORT) 500 UN/5ML ONE (19:12)
== END 2018-07-22 19:27 | disposition home or self-care (01) ==
LOC: ER 17:19
DX: E11.65 Type 2 diabetes mellitus with hyperglycemia (principal); R53.83 Other fatigue
CPT/HCPCS: 71045; 73630; 81001; 82803; 83690; 85025; 85651; 86140; 93005; 96360; 96361; 99284; A4353; J1642; J7030; 82040; 82247; 82310; 82374; 82435; 82565; 82947; 84075; 84132; 84155; 84295; 84450; 84460; 84520

== ENCOUNTER 2018-09-10 13:48 | Outpatient (RCR) | payer MEDICARE, OTHER ==
[2016-01-12 09:52] VITALS: Wt 87.8 kg
[2018-07-04 13:27] VITALS: BP 124/65
[2018-07-04] MEDS: LIDOCAINE/SOD BICARB 8.4% SYR ID PRN (13:27)
[2018-07-04] MEDS: HEPARIN FLSH (PORT) 500 UN/5ML IVP PRN (13:28)
[2018-08-08] MEDS: LIDOCAINE/SOD BICARB 8.4% SYR ID PRN (14:02)
[2018-08-08] MEDS: HEPARIN FLSH (PORT) 500 UN/5ML IVP PRN (14:02)
[2018-08-08 14:09] LABS: PLATELET COUNT, AUTOMATED 217 K/uL (150-450)
[2018-08-10 11:27] VITALS: BP 125/66
--- NOTE | 2018-08-10 19:49 | ONCOLOGY FOLLOW UP NOTE ---
EVENT DATE: August 10, 2018 DIAGNOSES 1. Iron deficiency anemia with no response to iron supplement. 2. Type 2 diabetes mellitus, on insulin. 3. Infected right hip replacement. 4. Depression. 5. Gastroesophageal reflux disease. 6. Hypertension. 7. History of breast cancer, status post right mastectomy. 8. Sleep apnea. CHIEF COMPLAINT The patient is here today for followup of her iron deficiency anemia. HEMATOLOGY HISTORY The patient is a 68-year-old female who had a right hip replacement 15 years ago, and apparently, this became infected in 2013, treated with long-term antibiotics. She ultimately required exploration with antibiotic spacer placed. The patient currently is receiving oral antibiotic under the care of Dr. Mendoza in [place]. The patient had a PICC line placed, and she had catheter-related thrombosis recently for which the patient was put on Xarelto 20 mg daily. As per patient, she had a GI workup for evaluation of her iron deficiency anemia by Dr. Lara and, as per patient, she was found to have a bleeding small bowel ulcer. The patient was put on iron with ferrous sulfate 325 mg three times daily, but she continues to have anemia. She received two units of packed RBCs on March 08, 2016. Her CBC on February 22, 2016, showed white count 8000, hemoglobin 8.9, hematocrit 28.7, and MCV 80.9 with platelets 176,000. The patient is referred for further evaluation and management of her iron deficiency anemia which is not responding to the oral iron supplementation. HISTORY OF PRESENT ILLNESS Patient is here today for followup of her iron deficiency anemia. She lost about 10 pounds due to uncontrolled diabetes , but she working with her physician for that. She is complaining also of shortness of breath which is getting better after quitting smoking. She has also itching of the skin, but no skin rash. PAST MEDICAL HISTORY 1. Iron deficiency anemia. 2. Infected right hip replacement 3. COPD. 4. Atrial fibrillation. 5. Depression. 6. Hyperlipidemia. 7. Obesity. 8. GERD. 9. Hypertension. 10. Type 2 diabetes. 11. History of breast cancer. 12. History of non-ST elevated myocardial infarction. 13. History of bladder dysfunction. 14. Sleep apnea. 15. Chronic pain syndrome. 16. Congestive heart failure. PAST SURGICAL HISTORY 1. Hysterectomy. 2. Cholecystectomy. 3. Right mastectomy for breast cancer. 4. Left leg [id number] amputation. 5. Broken right calcaneus bone. SOCIAL HISTORY The patient is a with two children. She smokes little. Denies any abuse of alcohol or illicit drugs. 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 FAMILY HISTORY Mother with breast cancer. She has also brother and sister with cancer. CURRENT MEDICATIONS 1. Lasix 20 mg twice daily. 2. Insulin Lantus 30 units subcutaneously twice daily. 3. Xarelto 20 mg daily. 4. Protonix 40 mg twice daily. 5. Doxycycline 100 mg b.i.d. 6. Ferrous sulfate 150 mg capsule of polysaccharide iron 150 once daily. 7. Lyrica 50 mg three times daily. 8. Exubinex HFA 15 g one to two puffs by inhalation three times daily as needed for wheezing. 9. Humalog insulin subcutaneously sliding scale. 10. Abilify 2 mg daily. 11. Vitamin D3 at 1000 units daily. 12. Magnesium oxide 400 mg daily in two divided doses. 13. Celexa 40 mg daily. 14. Aspirin 81 mg daily. ALLERGIES 1. HYDROCODONE. 2. LISINOPRIL. 3. MORPHINE. 4. SULFAMETHOXAZOLE. 5. TRIMETHOPRIM. 6. VANCOMYCIN. REVIEW OF SYSTEMS CONSTITUTIONAL: She lost about 10 pounds due to uncontrolled diabetes, which she is working with her physician for that. No fever, chills, or sweating. No recent infection. HEENT: Ears: No tinnitus or hearing problem. Nose: No nasal discharge or epistaxis. Throat: No sore throat or mouth ulcers. Eyes: No diplopia or visual changes. RESPIRATORY: Her shortness of breath is getting better after quitting smoking. No cough, expectoration, or hemoptysis. CARDIOVASCULAR: No chest pain, orthopnea, or paroxysmal nocturnal dyspnea (PND). No edema. No palpitations. GASTROINTESTINAL: No nausea or vomiting. No diarrhea or constipation. No change in bowel movements. No heartburn or swallowing difficulties. No abdominal pain. No jaundice. No hematemesis, melena, or rectal bleeding. GENITOURINARY: No hematuria or dysuria. MUSCULOSKELETAL: No pain in the muscles, joints, or bones. NEUROLOGICAL: No tingling or numbness in the hands or feet. No headaches or convulsions. HEMATOLOGIC/LYMPHATIC: No bleeding or easy bruising. No weakness or fatigue. No enlarged lymph nodes. SKIN: She has itching, but no skin rash. PSYCHIATRIC: No anxiety or depression. PHYSICAL EXAMINATION GENERAL: Looks stable. Well developed, well nourished, and in no acute distress. VITAL SIGNS: Blood pressure 125/66, pulse 77 per minute, respirations 18 per minute, temperature 98.2, pulse ox 94% on room air. HEENT: Head: Atraumatic. No sinus tenderness to palpation. Eyes: No icterus or conjunctivitis. Mouth and throat: No oral thrush or mucositis. NECK: Supple. No cervical or supraclavicular lymphadenopathy. LUNGS: Clear to auscultation and percussion bilaterally. HEART: Regular rate and rhythm. No gallops, murmurs, clicks, or rubs. ABDOMEN: Soft and lax. No tenderness. No hepatosplenomegaly. No masses. EXTREMITIES: No cyanosis, clubbing, or edema. She has a left artificial leg. LYMPHATICS: No peripheral lymphadenopathy. NEUROLOGICAL: Conscious, alert, and oriented times three. No focal motor or sensory deficits. PSYCHIATRIC: Mood and affect appear normal. SKIN: No skin rash, bruise, or purpuric eruption. DIAGNOSTIC DATA CBC showed white count 10.2, hemoglobin 13.4, hematocrit 39.7, platelets 217,000. Iron studies show serum iron 78, TIBC 367, iron saturation 21.3%, and serum ferritin 15, which is down from 17. ASSESSMENT 1. Iron deficiency anemia with no response to oral iron supplement. Patient had gastrointestinal workup by Dr. Lara and was found to have a small bowel ulcer. She was maintained on Xarelto for deep venous thrombosis of the left upper extremity, which was discontinued, but the patient was put back on anticoagulation because of carotid artery thrombosis. Patient showed poor response to iron supplement in the past. She received infusion of iron supplementation in the form of Injectafer with improvement of her iron deficiency. Her hemoglobin improved from 8.6 to 11.2 to 13.9, and her current hemoglobin is 13.4. Her ferritin dropped from 59 to 18 to 17, and currently 15. She is currently on one pill of ferrous sulfate. I am planning to increase ferrous sulfate to two pills again, and I will see her in two months with CBC and iron studies with ferritin. If her iron studies show continual drop of her ferritin, I am planning to treat her with Injectafer again. I explained that to the patient. She is agreeable with the plan of management. 2. Deep venous thrombosis, left upper extremity, resolved with Xarelto. 3. Carotid artery thrombosis, on anticoagulation. 4. Type 2 diabetes, on treatment. 5. Gastroesophageal reflux disease. 6. History of breast cancer, status post right mastectomy. PLAN 1. Continue ferrous sulfate 325 mg twice daily. 2. Patient to return in two months with CBC, iron studies with ferritin. 3. Patient is to contact us for any new concern or complaints. WILLD
[~2018-09-10 13:48] MED LIST changes: +ALTEPLASE RECOMB 2 MG VIAL IVP PRN; +DEXTROSE 5%(*) 100 ML BAG 100 ML IVPB PRN; +INFLUENZA VIRUS VAC 0.5ML SYR IM ONLY ONE; +NS(*) 0.9% 100 ML BAG 100 ML IVPB PRN; +NS(*) 0.9% 500 ML BAG 500 ML IV PRN; +WATER FOR INJ,STERILE 20 ML IVP PRN; +ZOLP12.548
[2018-09-10] MEDS: LIDOCAINE/SOD BICARB 8.4% SYR ID PRN (14:13)
[2018-09-10] MEDS: HEPARIN FLSH (PORT) 500 UN/5ML IVP PRN (14:13)
== END 2018-09-30 ==
LOC: SPU 13:48
PROVIDERS: ATTEND Internal Medicine Hematology
DX: D50.9 Iron deficiency anemia, unspecified (principal); Z23 Encounter for immunization
CPT/HCPCS: 36591; 82728; 83540; 83550; 85025; 90471; 96523; G0463; J1642; Q2037; 90674; 99211; 99212

== ENCOUNTER 2018-09-24 12:51 | Outpatient (RCR) | payer MEDICARE, OTHER ==
[2016-01-12 09:52] VITALS: BMI 34.3
--- NOTE | 2018-06-27 15:07 | PT INITIAL EVALUATION ---
MEDICAL DIAGNOSIS: balance and gait TREATMENT DIAGNOSIS: same, decreased strength DATE OF ONSET: 02/23/17 SUBJECTIVE: Rosario Mary presents to physical therapy with complaints of decreased endurance and decreased gait and balance. She reports that in the last few months, she has recovered from a wound on her R foot and continues to have wound on her prosthetic limb that continues to have stay the same and continues to get better. She reports that she is able to cook, clean, drive, and most house hold responsibilities independently. She reports that she wants to be able to walk with a cane versus a FWW and become more independent with household and community chores. Furthermore, she reports that she continues to have a fear of falling especially with going up and down hills. She denies any pain in her B LE's, however, she does report that she has lymphedema in her R UE and LE. She also reports that her low back pain has been better as long as she continues to perform her specific exercise with improved sitting posture. REHAB PROBLEM LIST: Decreased ROM Decreased Strength Decreased Endurance Decreased Balance Decreased Function Decreased ADL's Decreased Mobility Decreased Gait PREVIOUS MEDICAL HISTORY: See EMR OCCUPATION: Retired OBJECTIVE: Posture: She demonstrated forward head, B rounded shoulders, increased thoracic kyphosis, and decreased lumbar lordosis. Strength: B hip abduction, extension, B knee flexion, and B ankle DF: 4/5. B hip adduction, B knee extension, B ankle PF: 5/5. Special Tests: The lower extremity functional scale: 36/80; 55% impairment. Tinetti Gait and Balance: : 28.6% Mobility: Modified Independent Gait: With FWW, she demonstrated the following gait mechanics: equal B step lengths, normal base of support, decreased velocity, increased double limb support, decreased pelvic rotation, and no LOB. Balance: Normal base of support, firm surface, and eyes opened: 60 seconds. Decreased base of support, firm surface, and eyes opened: 60 seconds. Tandem stance, firm surface, and eyes opened: 30 seconds with R or L LE forward. Normal base of support, firm surface, and eyes closed: 40 seconds. Decreased base of support, firm surface, and eyes closed: 20 seconds. ASSESSMENT: Rosario will benefit from skilled physical therapy to address the listed impairments to improve function and QOL. Short Term Goals In 6 weeks pt will increase ambulation prior to fatigue to 3 laps around track (855 ft) using 4WW increasing functional endurance resulting in increased ambulation around home and community. In 6 weeks pt will increase strength in R LE to equal that in L LE for increased functional ability to perform transfers and ADL's. In 8 weeks, pt will be able to transition from FWW to cane independently to improve function and QOL. 10 weeks, pt will be able to ambulate on uneven ground with FWW to improve her fear of falling and improve function and QOL. Patient's Goals walking with cane and walking on uneven ground PLAN: Patient to be seen for Manual Therapy/STM/MET Strengthening/condition Range of Motion Spinal Stabilization Work Hardening/Cond Stretching Neuromuscular Re-ed Closed Chain Program Posture/Body mechanics Gait Trg/Balance Trg Home Exercise Program Therapeutic Activities 2x/Week for 10 weeks If you have any questions, comments, or concerns about this report or plan, please contact me at . Thank you, Nash Tran, PT, DPT [facility]
--- NOTE | 2018-08-07 09:00 | PT PLAN OF CARE ---
Physician: Jamaal Cross DO Patient is being seen: 2x/week Therapist: Nash Tran, PT, DPT Medical Diagnosis: Decreased gait and balance Treatment Diagnosis: same, low back pain Date of Onset: Date of Initial Evaluation: 06/27/18 Date patient was last seen: 08/06/18 Number of treatments: 10 Number of cancellations/No shows: 1 Patient to be seen for Manual Therapy/STM/MET Strengthening/condition Range of Motion Spinal Stabilization Work Hardening/Cond Stretching Neuromuscular Re-ed Closed Chain Program Posture/Body mechanics Gait Trg/Balance Trg Home Exercise Program Therapeutic Activities Short Term Goals In 6 weeks pt will increase ambulation prior to fatigue to 3 laps around track (855 ft) using 4WW increasing functional endurance resulting in increased ambulation around home and community. In 6 weeks pt will increase strength in R LE to equal that in L LE for increased functional ability to perform transfers and ADL's. In 8 weeks, pt will be able to transition from FWW to cane independently to improve function and QOL. 10 weeks, pt will be able to ambulate on uneven ground with FWW to improve her fear of falling and improve function and QOL. Patient's Goals walking with cane and walking on uneven ground Status of Patient's Goals: Progressing well Patient Compliance: Good Prognosis: Reasons for continuing therapy: This is a progress note for Rosario Mary. She reports that she is doing better. She reports that she quit smoking over the weekend. She reports that she can not control her blood sugar as it goes extremely low and then it goes extremely high and is in current contact with her PCP. She reports that she continues to be lightheaded with transitions between sitting to standing or from laying to sitting. She reports that her prosthetic was leveled and is currently fitted well to her leg. She reports that the wounds have fully resolved. She has demonstrated signficant improvements with 6 minute walk test from 171 feet to 384.75 feet, minimal improvements in her tinetti gait and balance from to , which continues to be a moderate fall risk, and significant improvements in 4 stage balance as she was able to increase her time to 60 seconds in all conditions with the except of tandem stance, and lastly her lower extremity functional scale improved from 36/80 to 44/80. We will continue to improve balance, gait, strength, and endurance to return to prior level of function. OBJECTIVE: Posture: She demonstrated forward head, B rounded shoulders, increased thoracic kyphosis, and decreased lumbar lordosis. Strength: B hip abduction, extension, B knee flexion, and B ankle DF: 4/5. B hip adduction, B knee extension, B ankle PF: 5/5. Special Tests: The lower extremity functional scale: 44/80; 45% impairment. Tinetti Gait and Balance: : 17.9% Mobility: Modified Independent Gait: With FWW, she demonstrated the following gait mechanics: equal B step lengths, normal base of support, decreased velocity, increased double limb support, decreased pelvic rotation, and no LOB. Balance: Normal base of support, firm surface, and eyes opened: 60 seconds. Decreased base of support, firm surface, and eyes opened: 60 seconds. Tandem stance, firm surface, and eyes opened: 40 seconds with R or L LE forward. Normal base of support, firm surface, and eyes closed: 60 seconds. Decreased base of support, firm surface, and eyes closed: 60 seconds. If you have any questions, please contact me at [phone]. Thank you, Nash Tran, PT, DPT [facility]
--- NOTE | 2018-09-12 14:08 | PT PLAN OF CARE ---
Physician: Jamaal Cross DO Patient is being seen: 2x/week Therapist: Nash Tran, PT, DPT Medical Diagnosis: Decreased gait and balance Treatment Diagnosis: same, low back pain Date of Onset: Date of Initial Evaluation: 06/27/18 Date patient was last seen: 09/12/18 Number of treatments: 20 Number of cancellations/No shows: 1 Patient to be seen for Manual Therapy/STM/MET Strengthening/condition Range of Motion Spinal Stabilization Work Hardening/Cond Stretching Neuromuscular Re-ed Closed Chain Program Posture/Body mechanics Gait Trg/Balance Trg Home Exercise Program Therapeutic Activities Short Term Goals In 6 weeks pt will increase ambulation prior to fatigue to 3 laps around track (855 ft) using 4WW increasing functional endurance resulting in increased ambulation around home and community. In 6 weeks pt will increase strength in R LE to equal that in L LE for increased functional ability to perform transfers and ADL's. In 8 weeks, pt will be able to transition from FWW to cane independently to improve function and QOL. 10 weeks, pt will be able to ambulate on uneven ground with FWW to improve her fear of falling and improve function and QOL. Patient's Goals walking with cane and walking on uneven ground Status of Patient's Goals: Progressing well Patient Compliance: Good Prognosis: Reasons for continuing therapy: This is a progress note for Rosario Mary. She reports that her breathing is not doing well since she started to smoke again. She reports that her R hip feels better with ambulation. She reports that her low back pain is doing well and denies any pain today. She states that she feels most limited by her breathing and states that she is frustrated with the relapse in her smoking. She is progressing well with gait mechanics as we have transitioned from the walker to the cane without any LOBs throughout the last two sessions. She continues to demonstrate shorter R step lengths with the cane but they have significantly improved over the last 4 sessions. Furthermore, she has demonstrated increased endurance as she has improved her gait distance from 3 laps to 8 laps, which is a significant improvement. We will continue to improve gait mechanics, endurance, strength, and return to prior level of function. OBJECTIVE: Posture: She demonstrated forward head, B rounded shoulders, increased thoracic kyphosis, and decreased lumbar lordosis. Strength: B hip abduction, extension, B knee flexion, and B ankle DF: 4/5. B hip adduction, B knee extension, B ankle PF: 5/5. Special Tests: The lower extremity functional scale: 44/80; 45% impairment. Tinetti Gait and Balance: : 17.9% Mobility: Modified Independent Gait: With FWW, she demonstrated the following gait mechanics: equal B step lengths, normal base of support, decreased velocity, increased double limb support, decreased pelvic rotation, and no LOB. Balance: Normal base of support, firm surface, and eyes opened: 60 seconds. Decreased base of support, firm surface, and eyes opened: 60 seconds. Tandem stance, firm surface, and eyes opened: 40 seconds with R or L LE forward. Normal base of support, firm surface, and eyes closed: 60 seconds. Decreased base of support, firm surface, and eyes closed: 60 seconds. If you have any questions, please contact me at [phone]. Thank you, Nash Tarn, PT, DPT VANESSA
[~2018-09-24 12:51] MED LIST changes: -ALTEPLASE RECOMB 2 MG VIAL IVP PRN; -DEXTROSE 5%(*) 100 ML BAG 100 ML IVPB PRN; -INFLUENZA VIRUS VAC 0.5ML SYR IM ONLY ONE; -LOSA50TA74 PO; +LOSA50TA80 PO; -NS(*) 0.9% 100 ML BAG 100 ML IVPB PRN; -NS(*) 0.9% 500 ML BAG 500 ML IV PRN; -WATER FOR INJ,STERILE 20 ML IVP PRN
== END 2018-09-25 ==
LOC: PT 12:51
PROVIDERS: ATTEND Family Medicine
DX: M62.81 Muscle weakness (generalized) (principal); R26.89 Other abnormalities of gait and mobility
CPT/HCPCS: 97162

== ENCOUNTER → 2018-10-09 | Outpatient (CLI) | payer MEDICARE, OTHER ==
[2016-01-12 09:52] VITALS: BMI 34.3
--- NOTE | 2018-10-10 11:26 | RADIOLOGY IMAGING REPORT ---
FACILITY: [facility] PATIENT NAME: FAUSTINO GALVAN : [id number] MR: [id number] V: [id number] EXAM DATE: ORDERING PHYSICIAN: PATRICA JOSEPH TECHNOLOGIST: Ginger Sherman PROCEDURE: MAMMOGRAM SCREENING LEFT UNILATERAL WITH CAD ASSISTED INTERPRETATION & 3D TOMOSYNTHESIS COMPARISON: Prior mammograms dated 07/18/11, 09/08/10, 07/09/18, 12/13/06 INDICATIONS: SCREENING/ The patient is status post Right mastectomy in . FINDINGS: The breast is almost entirely fatty. There are increased serpiginous dilated vessels seen along the superior aspect of the Left breast. The parenchymal pattern has otherwise remained stable. DIAGNOSTIC CATEGORY 2--BENIGN FINDING. RECOMMENDATIONS: ROUTINE MAMMOGRAM AND CLINICAL EVALUATION. IMPRESSION: BIRADS 2: Benign finding. No significant abnormality of the Left breast is seen. Dictated by: Jovanna High M.D. on 10/09/2018 at 16:54 Transcribed by: PARUL on 10/10/2018 at 10:18 Approved by: Jovanna High M.D. on 10/10/2018 at 11:26 [facility]
== END ==
LOC: MAMO 00:44
PROVIDERS: ATTEND Family Medicine
DX: Z12.31 Encounter for screening mammogram for malignant neoplasm of breast (principal); Z80.3 Family history of malignant neoplasm of breast
CPT/HCPCS: 77063; 77067

== ENCOUNTER → 2018-10-11 | Outpatient (REF) | payer MEDICARE, OTHER ==
[2016-01-12 09:52] VITALS: BMI 34.3
== END ==
LOC: ZZSENDIN 16:24
PROVIDERS: ATTEND Family Medicine
DX: J44.9 Chronic obstructive pulmonary disease, unspecified (principal); I10 Essential (primary) hypertension
CPT/HCPCS: 82310; 82374; 82435; 82565; 82947; 84132; 84295; 84520

== ENCOUNTER 2018-11-19 13:48 | Outpatient (RCR) | payer MEDICARE, OTHER ==
[2016-01-12 09:52] VITALS: BMI 34.3
[2018-10-03 13:54] VITALS: BP 123/47
[2018-10-03] MEDS: LIDOCAINE/SOD BICARB 8.4% SYR ID PRN (14:20)
[2018-10-03] MEDS: HEPARIN FLSH (PORT) 500 UN/5ML IVP PRN (14:20)
[2018-10-03 14:22] LABS: PLATELET COUNT, AUTOMATED 202 K/uL (150-450)
[2018-10-05 11:27] VITALS: BP 137/70
--- NOTE | 2018-10-05 21:04 | [facility] ONCOLOGY NOTE ---
EVENT DATE: October 05, 2018 DIAGNOSES 1. Iron deficiency anemia with no response to iron supplement. 2. Type 2 diabetes mellitus, on insulin. 3. Infected right hip replacement. 4. Depression. 5. Gastroesophageal reflux disease. 6. Hypertension. 7. History of breast cancer, status post right mastectomy. 8. Sleep apnea. CHIEF COMPLAINT Patient is here today for followup of her iron deficiency anemia. HEMATOLOGY HISTORY The patient is a 68-year-old female who had a right hip replacement 15 years ago, and apparently, this became infected in 2013, treated with long-term antibiotics. She ultimately required exploration with antibiotic spacer placed. The patient currently is receiving oral antibiotic under the care of Dr. Mendoza in [place]. The patient had a PICC line placed, and she had catheter-related thrombosis recently for which the patient was put on Xarelto 20 mg daily. As per patient, she had a GI workup for evaluation of her iron deficiency anemia by Dr. Lara and, as per patient, she was found to have a bleeding small bowel ulcer. The patient was put on iron with ferrous sulfate 325 mg three times daily, but she continues to have anemia. She received two units of packed RBCs on March 08, 2016. Her CBC on February 22, 2016, showed white count 8000, hemoglobin 8.9, hematocrit 28.7, and MCV 80.9 with platelets 176,000. The patient is referred for further evaluation and management of her iron deficiency anemia which is not responding to the oral iron supplementation. HISTORY OF PRESENT ILLNESS Patient is here today for followup of her iron deficiency anemia. She is doing fine currently. She is complaining of nasal discharge. She has cough with expectoration and shortness of breath. She has right hip pain. She is weak, tired, and fatigued. PAST MEDICAL HISTORY 1. Iron deficiency anemia. 2. Infected right hip replacement 3. COPD. 4. Atrial fibrillation. 5. Depression. 6. Hyperlipidemia. 7. Obesity. 8. GERD. 9. Hypertension. 10. Type 2 diabetes. 11. History of breast cancer. 12. History of non-ST elevation myocardial infarction. 13. History of bladder dysfunction. 14. Sleep apnea. 15. Chronic pain syndrome. 16. Congestive heart failure. PAST SURGICAL HISTORY 1. Hysterectomy. 2. Cholecystectomy. 3. Right mastectomy for breast cancer. 4. Left leg [id number]-[id number] amputation. 5. Broken right calcaneus bone. SOCIAL HISTORY The patient is a with two children. She smokes little. Denies any abuse of alcohol or illicit drugs. 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 FAMILY HISTORY Mother with breast cancer. She has also brother and sister with cancer. CURRENT MEDICATIONS 1. Lasix 20 mg twice daily. 2. Insulin Lantus 30 units subcutaneously twice daily. 3. Xarelto 20 mg daily. 4. Protonix 40 mg twice daily. 5. Doxycycline 100 mg b.i.d. 6. Ferrous sulfate 150 mg capsule of polysaccharide iron 150 once daily. 7. Lyrica 50 mg three times daily. 8. Exubinex HFA 15 g one to two puffs by inhalation three times daily as needed for wheezing. 9. Humalog insulin subcutaneously sliding scale. 10. Abilify 2 mg daily. 11. Vitamin D3 at 1000 units daily. 12. Magnesium oxide 400 mg daily in two divided doses. 13. Celexa 40 mg daily. 14. Aspirin 81 mg daily. ALLERGIES 1. HYDROCODONE. 2. LISINOPRIL. 3. MORPHINE. 4. SULFAMETHOXAZOLE. 5. TRIMETHOPRIM. 6. VANCOMYCIN. REVIEW OF SYSTEMS CONSTITUTIONAL: No appetite or weight change. No fever, chills, or sweating. No recent infection. HEENT: Ears: No tinnitus or hearing problem. Nose: She has nasal discharge. No epistaxis. Throat: No sore throat or mouth ulcers. Eyes: No diplopia or visual changes. RESPIRATORY: She has cough with expectoration and shortness of breath. No hemoptysis. CARDIOVASCULAR: No chest pain, orthopnea, or paroxysmal nocturnal dyspnea (PND). No edema. No palpitations. GASTROINTESTINAL: No nausea or vomiting. No diarrhea or constipation. No change in bowel movements. No heartburn or swallowing difficulties. No abdominal pain. No jaundice. No hematemesis, melena, or rectal bleeding. GENITOURINARY: No hematuria or dysuria. MUSCULOSKELETAL: She has right hip pain. NEUROLOGICAL: No tingling or numbness in the hands or feet. No headaches or convulsions. HEMATOLOGIC/LYMPHATIC: No bleeding or easy bruising. She is weak, tired, and fatigued. No enlarged lymph nodes. SKIN: No skin rash or lumps. PSYCHIATRIC: No anxiety or depression. PHYSICAL EXAMINATION GENERAL: Looks stable. Well developed, well nourished, and in no acute distress. VITAL SIGNS: Blood pressure 137/70, pulse 85 per minute, respirations 16 per minute, temperature 98.1, pulse ox 92% on 2L oxygen. HEENT: Head: Atraumatic. No sinus tenderness to palpation. Eyes: No icterus or conjunctivitis. Mouth and Throat: No oral thrush or mucositis. NECK: Supple. No cervical or supraclavicular lymphadenopathy. LUNGS: Clear to auscultation and percussion bilaterally. HEART: Regular rate and rhythm. No gallops, murmurs, clicks or rubs. ABDOMEN: Soft and lax. No tenderness. No hepatosplenomegaly. No masses. EXTREMITIES: No cyanosis, clubbing, or edema. Patient has left artificial leg. LYMPHATICS: No peripheral lymphadenopathy. NEUROLOGICAL: Conscious, alert, and oriented times three. No focal motor or sensory deficits. PSYCHIATRIC: Mood and affect appear normal. SKIN: No skin rash, bruise, or purpuric eruption. DIAGNOSTIC DATA CBC showed white count 7.6, hemoglobin 15.1, hematocrit 44.9, platelets 202,000. Serum iron is 53, TIBC 345, iron saturation 15.4%, and ferritin 28, trending up. ASSESSMENT 1. Iron deficiency anemia with no response to oral iron supplement. Patient had gastrointestinal workup by Dr. Lara and was found to have a small bowel ulcer. She was maintained on Xarelto for deep venous thrombosis of the left upper extremity, which was discontinued, but the patient was put back on anticoagulation because of carotid artery thrombosis. She showed poor response to iron supplementation in the past. She received infusion of iron supplementation in the form of Injectafer with improvement of her iron deficiency. Her hemoglobin improved from 8.6 to 11.2 to 13.9 to 13.4. Her ferritin dropped from 59 to 18 to 17 to 15. Patient was advised to take oral iron pills, ferrous sulfate 325 mg twice daily, and her ferritin currently is 28, up from 15. Her hemoglobin also increased from 13.4 to currently 15.1. I am planning to continue ferrous sulfate 325 mg twice daily, and I will see her in three months with CBC and repeat iron studies with ferritin at that time. 2. Deep venous thrombosis of the left upper extremity, resolved with Xarelto. 3. Carotid artery thrombosis, on anticoagulation. 4. Type 2 diabetes, on treatment. 5. Gastroesophageal reflux disease. 6. History of breast cancer, status post right mastectomy. PLAN 1. Continue ferrous sulfate 325 mg twice daily. 2. Patient to return in three months with CBC, iron studies with ferritin. 3. Patient is to contact us for any new concern or complaints. MTDD
[~2018-11-19 13:48] MED LIST changes: +ALTEPLASE RECOMB 2 MG VIAL IVP PRN; +DEXTROSE 5%(*) 100 ML BAG 100 ML IVPB PRN; +NS(*) 0.9% 100 ML BAG 100 ML IVPB PRN; +NS(*) 0.9% 500 ML BAG 500 ML IV PRN; +WATER FOR INJ,STERILE 20 ML IVP PRN
[2018-11-19 13:52] VITALS: BP 127/52
[2018-11-19] MEDS: LIDOCAINE/SOD BICARB 8.4% SYR ID PRN (14:10)
[2018-11-19] MEDS: HEPARIN FLSH (PORT) 500 UN/5ML IVP PRN (14:10)
[2018-11-30] MEDS ORDERED: PRED20TA6 PO (16:35)
[2018-11-30] MEDS ORDERED: AZIT-18 PO (16:35)
== END 2019-01-01 ==
LOC: SPU 13:48
PROVIDERS: ATTEND Internal Medicine Hematology
DX: D50.9 Iron deficiency anemia, unspecified (principal); Z23 Encounter for immunization; I65.29 Occlusion and stenosis of unspecified carotid artery; Z79.01 Long term (current) use of anticoagulants; K21.9 Gastro-esophageal reflux disease without esophagitis; Z90.10 Acquired absence of unspecified breast and nipple; Z85.3 Personal history of malignant neoplasm of breast; I10 Essential (primary) hypertension; Z96.641 Presence of right artificial hip joint
CPT/HCPCS: 36591; 82728; 83540; 83550; 85025; 96523; G0463; J1642; 99212

== ENCOUNTER 2018-11-30 14:33 | Emergency (ER) | payer MEDICARE, OTHER ==
[2016-01-12 09:52] VITALS: BMI 34.3
[~2018-11-30 14:33] MED LIST changes: -ALTEPLASE RECOMB 2 MG VIAL IVP PRN; -DEXTROSE 5%(*) 100 ML BAG 100 ML IVPB PRN; -NS(*) 0.9% 100 ML BAG 100 ML IVPB PRN; -NS(*) 0.9% 500 ML BAG 500 ML IV PRN; -WATER FOR INJ,STERILE 20 ML IVP PRN
[2018-11-30 14:37] VITALS: BP 122/71
--- NOTE | 2018-11-30 14:51 | ER Report ---
History and Physical Time Seen By MD: 14:44 Hx. of Stated Complaint: PATIENT STATES THAT SHE HAS BEEN CONGESTED FOR ABOUT A WEEK; STATES THAT SHE THINKS THAT SHE MIGHT HAVE PNEUMONIA HPI/ROS CHIEF COMPLAINT: Concerned about pneumonia HISTORY OF PRESENT ILLNESS: This is a 68-year-old female presents to the emergency department for concerns of pneumonia. Patient states that over the last couple days she's had an increase in the frequency of her typical cough, today she's had a productive cough and is concerned that she has pneumonia. She has no chest pain. No nausea or vomiting. No fevers or chills. No rashes. No o ther complaints. History of COPD. REVIEW OF SYSTEMS: Constitutional: No fever, no chills. Eyes: No discharge. ENT: No sore throat. Cardiovascular: No chest pain, no palpitations. Respiratory: As above. Gastrointestinal: No abdominal pain, no vomiting. Genitourinary: No hematuria. Musculoskeletal: No back pain. Skin: No rashes. Neurological: No headache. Allergies: Coded Allergies: hydrocodone (Verified Allergy, Severe, 05/12/18) angioedema lisinopril (Verified Allergy, Severe, 05/12/18) angioedema sulfamethoxazole (Verified Allergy, Severe, 05/12/18) angioedema trimethoprim (Verified Allergy, Severe, 05/12/18) angioedema morphine (Verified Allergy, Intermediate, MENTAL STATUS CHANGES, 05/12/18) vancomycin (Verified Allergy, Mild, HIVES, 05/12/18) Pt was given Vanco on 07/14/15 at [facility], had hives to chest and ABD, resolved with discontinuation of medication and benadryl. metoprolol (Verified Allergy, Unknown, 05/12/18) bupropion (Verified Adverse Reaction, Unknown, Moodiness, 05/12/18) Uncoded Allergies: TAPE (Allergy, Mild, 09/06/07) Home Meds Active Scripts Prednisone (PREDNISONE) 20 Mg Tablet, 20 MG PO BID, #10 TAB Prov:LUCY AGUILERAP- 11/30/18 Azithromycin 250 Mg Tab (AZITHROMYCIN 250 MG TAB) 250 Mg Tablet, 1 TAB PO QDAY, #6 TAB Take 2 tabs today and then 1 tab a day until gone. 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 11/30/18 Albuterol Sulfate 0.083% (ALBUTEROL SULFATE 0.083%) 2.5 Mg/3 Ml Vial.neb, 2.5 MG INH Q6H for cough/shortness of breath, #1 BOX 1 Refill Prov:PALLAVI REYES MD 05/12/18 Insulin Glargine (LANTUS) 100 Unit/Ml Soln, 35.31 UNIT SUBQ BID, #6 BOX 3 R efills 35 units subq QAM 31 units subq QHS Prov:AMEENA REECE MD 04/06/18 Tramadol Hcl (TRAMADOL HCL) 50 Mg Tablet, 2 TAB PO BID, #360 TAB 4 Refills Prov:AMEENA REECE MD 02/06/18 Insulin Lispro 100 Un/Ml Vial (HUMALOG 100 U/ML VIAL) 100 Unit/1 Ml Vial, 10 UNITS SQ SS, #3 VIAL 0 Refills Prov:AMEENA REECE MD 01/11/18 Lancets (FREESTYLE LANCETS) 1 Each Each, EACH MC BID, #1 3 Refills Prov:AMEENA REECE MD 01/08/18 Blood Sugar Diagnostic (GLUCOSE TEST STRIP) 1 Each Strip, 1 EACH MC BID, #6 B OTTLE 3 Refills Prov:AMEENA REECE MD 01/08/18 Rivaroxaban 20 Mg (XARELTO 20 MG) 20 Mg Tablet, 1 TAB PO QDAY, #90 TAB 6 Refills Prov:AMEENA REECE MD 12/01/17 Diclofenac Sodium 1% Gel (VOLTAREN 1% GEL) 100 Gm Gel..gram., 1 EACH TOP BID, #1 TUBE 0 Refills Prov:AMEENA REECE MD 09/13/17 Rosuvastatin Calcium (Rosuvastatin Calcium) 10 Mg Tablet, 1 TAB PO DAILY, #90 TAB 3 Refills Prov:AMEENA REECE MD 09/06/17 Duloxetine Hcl (CYMBALTA) 60 Mg Capsule.dr, 60 MG PO QDAY, #90 CAP 4 Refills Prov:AMEENA REECE MD 09/06/17 Potassium Chloride (KLOR-CON M20) 20 Meq Tab.er.prt, 1 TAB PO QDAY, #90 TAB 3 Refills Prov:AMEENA REECE MD 09/06/17 Pregabalin (LYRICA) 50 Mg Capsule, 1 CAP PO TID, #270 CAPSULE 3 Refills Prov:AMEENA REECE MD 09/06/17 Albuterol Sulfate 90 Mcg/Act (PROAIR HFA 90 MCG/ACT) 8.5 Gm Hfa.aer.ad, 2 PUFF IH Q4-6H, #3 INHALER 3 Refills Prov:AMEENA REECE MD 09/06/17 Doxycycline Hyclate (DOXYCYCLINE HYCLATE) 100 Mg Tablet, 100 MG PO BID, #180 TAB 3 Refills Prov:AMEENA REECE MD 09/06/17 Fluticasone/Salmeterol (ADVAIR 250-50 DISKUS) 1 Each Disk.w.dev, 1 EACH IH BID, #1 DISK 11 Refills Prov:AMEEAN REECE MD 09/06/17 Carvedilol (CARVEDILOL) 12.5 Mg Tablet, 1 TAB PO BID, #180 TAB 3 Refills Prov:AMEENA REECE MD 09/06/17 Aripiprazole (ABILIFY) 2 Mg Tablet, 1 TAB PO QDAY, #90 TAB 3 Refills Prov:AMEENA REECE MD 09/06/17 Furosemide (FUROSEMIDE) 20 Mg Tablet, 1 TAB PO BID, #180 TAB 3 Refills Prov:AMEENA REECE MD 09/06/17 Reported Medications Zolpidem Tartrate (ZOLPIDEM TARTRATE ER) 12.5 Mg Tab.mphase 07/22/18 Vit W-Ca,Fe,FA(<1 mg) ( Formula) 1 Each Tablet, 1 TAB PO DAILY 11/14/16 Vit A/Vit C/Vit E/Zinc/Copper (PRESERVISION AREDS SOFTGEL) 1 Each Capsule, 1 EACH PO BID, CAPSULE 11/14/16 Aspirin (ASPIRIN) 81 Mg Tab.chew, 1 TAB PO DAILY 07/30/13 Past Medical/Surgical History The patient has a past medical and surgical history of CVA, blood clot from PICC line, port placed, mini heart attack, hypertension, hypercholesterolemia, ang ioedema, pneumonia, COPD, GERD,, disease, cholecystectomy, hiatal hernia, urinary tract infections, 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 Reviewed Nurses Notes: Yes Hx Smoking: Yes (1 PPD) Smoking Status: Current: Every Day Smoker Hx Substance Use Disorder: No Hx Alcohol Use: No Constitutional Vital Sign - Last 24 Hours 11/30/18 11/30/18 11/30/18 14:37 15:12 15:12 Temp 97.7 Pulse 78 74 Resp 18 16 B/P (MAP) 122/71 Pulse Ox 94 99 O2 Delivery Nasal Cannula Nasal Cannula O2 Flow Rate 3.0 Physical Exam General Appearance: The patient is alert, has no immediate need for airway protection and no signs of toxicity. Eyes: Pupils equal and round no pallor or injection. ENT, Mouth: Mucous membranes are moist. Respiratory: There are no retractions, mildly diminished in all castellano, expiratory wheezes. Cardiovascular: Regular rate and rhythm, no murmurs, clicks or rubs. Gastrointestinal: Abdomen is soft and non tender, no masses, bowel sounds normal. Neurological: Alert and oriented 4. Moving all extremities. Following all commands. No focal neuro deficits. Skin: Warm and dry, no rashes. Musculoskeletal: Neck is supple non tender. Extremities are nontender, nonswollen and have full range of motion. DIFFERENTIAL DIAGNOSIS: After history and physical exam differential diagnosis was considered for shortness of breath including but not limited to pulmonary infectious process, COPD, asthma, pulmonary embolus and congestive heart failure. Medical Decision Making Data Points Result Diagram: 11/30/18 1550 11/30/18 1550 Laboratory Hematology Test 11/30/18 15:50 Red Blood Count 5.49 M/uL (4.17-5.56) Mean Corpuscular Volume 86.7 fL (80.0-96.0) Mean Corpuscular Hemoglobin 29.1 pg (26.0-33.0) Mean Corpuscular Hemoglobin Concent 33.6 g/dL (32.0-36.0) Red Cell Distribution Width 14.0 % (11.5-14.5) Mean Platelet Volume 9.5 fL (7.2-11.1) Neutrophils (%) (Auto) 76.3 % (39.4-72.5) Lymphocytes (%) (Auto) 15.1 % (17.6-49.6) Monocytes (%) (Auto) 6.4 % (4.1-12.4) Eosinophils (%) (Auto) 1.6 % (0.4-6.7) Basophils (%) (Auto) 0.6 % (0.3-1.4) Nucleated RBC Relative Count (auto) 0.0 /100WBC Neutrophils # (Auto) 7.6 K/uL (2.0-7.4) Lymphocytes # (Auto) 1.5 K/uL (1.3-3.6) Monocytes # (Auto) 0.6 K/uL (0.3-1.0) Eosinophils # (Auto) 0.2 K/uL (0.0-0.5) Basophils # (Auto) 0.1 K/uL (0.0-0.1) Nucleated RBC Absolute Count (auto) 0.00 K/uL Sodium Level 135 mmol/L (137-145) Potassium Level 4.2 mmol/L (3.5-5.0) Chloride Level 102 mmol/L (98-107) Carbon Dioxide Level 32 mmol/L (22-31) Blood Urea Nitrogen 10 mg/dl (7-18) Creatinine 0.60 mg/dl (0.52-1.04) Glomerular Filtration Rate Calc > 60.0 Random Glucose 157 mg/dl (75-110) Calcium Level 9.2 mg/dl (8.4-10.2) Total Bilirubin 0.5 mg/dl (0.2-1.3) Aspartate Amino Transf (AST/SGOT) 19 U/L (0-35) Alanine Aminotransferase (ALT/SGPT) 25 U/L (0-56) Alkaline Phosphatase 85 U/L (0-126) Total Protein 7.0 g/dl (6.3-8.2) Albumin 4.0 g/dl (3.5-5.0) Chemistry Test 11/30/18 15:50 White Blood Count 10.0 k/uL (4.5-11.0) Red Blood Count 5.49 M/uL (4.17-5.56) Hemoglobin 16.0 g/dL (12.0-16.0) Hematocrit 47.6 % (34.0-47.0) Mean Corpuscular Volume 86.7 fL (80.0-96.0) Mean Corpuscular Hemoglobin 29.1 pg (26.0-33.0) Mean Corpuscular Hemoglobin Concent 33.6 g/dL (32.0-36.0) Red Cell Distribution Width 14.0 % (11.5-14.5) Platelet Count 168 K/uL (150-450) Mean Platelet Volume 9.5 fL (7.2-11.1) Neutrophils (%) (Auto) 76.3 % (39.4-72.5) Lymphocytes (%) (Auto) 15.1 % (17.6-49.6) Monocytes (%) (Auto) 6.4 % (4.1-12.4) Eosinophils (%) (Auto) 1.6 % (0.4-6.7) Basophils (%) (Auto) 0.6 % (0.3-1.4) Nucleated RBC Relative Count (auto) 0.0 /100WBC Neutrophils # (Auto) 7.6 K/uL (2.0-7.4) Lymphocytes # (Auto) 1.5 K/uL (1.3-3.6) Monocytes # (Auto) 0.6 K/uL (0.3-1.0) Eosinophils # (Auto) 0.2 K/uL (0.0-0.5) Basophils # (Auto) 0.1 K/uL (0.0-0.1) Nucleated RBC Absolute Count (auto) 0.00 K/uL Glomerular Filtration Rate Calc > 60.0 Calcium Level 9.2 mg/dl (8.4-10.2) Total Bilirubin 0.5 mg/dl (0.2-1.3) Aspartate Amino Transf (AST/SGOT) 19 U/L (0-35) Alanine Aminotransferase (ALT/SGPT) 25 U/L (0-56) Alkaline Phosphatase 85 U/L (0-126) Total Protein 7.0 g/dl (6.3-8.2) Albumin 4.0 g/dl (3.5-5.0) EKG/Imaging Imaging Location: [facility] - [place] Patient: Rosario Mary : 1950 Visit/Account:[id number] Date of Sevice: 11/30/2018 Exam type: CHEST PA LAT History: Cough and shortness of breath Comparison: 2017. and December 09, 2016 Findings: The lungs are free of acute effusions, infiltrates or edema. Cardiac silhouette is mildly enlarged. There is an implanted right IJ port distal tip projects over the superior vena cava. There are surgical clips in the right axilla. There is an old posttraumatic deformity of the left scapula. There are spondylotic changes of the visualized thoracolumbar spine. Degenerative changes at both shoulder joints are present. IMPRESSION: 1. No acute cardiac pulmonary process is seen Report Dictated By: Jovanna High MD at 11/30/2018 3:41 PM Report E-Signed By: Jovanna High MD at 11/30/2018 3:44 PM WSN:[email or web address] ED Course/Re-evaluation Clinical Indication for ER IV: IV Access ED Course The patient was admitted to room. A history and physical were obtained. Differential diagnoses were considered. The patient's port was accessed, a CBC, CMP were obtained. A two-view chest x-ray was negative for any acute cardiopulmonary process. CBC unremarkable, chemistry showing a blood sugar of 157. I reviewed the results with the patient. I did tell her that this is likely a bronchitis however with her history of COPD and tenuous lungs I did send a prescription for his azithromycin into her pharmacy, as well as a prednisone prescription. The patient's is agreeable with this plan of care, she was discharged home. Patient had no other concerns at this time. The patient was also given 1 DuoNeb with mild relief of her wheezing. Decision to Disposition Date: Nov 30, 2018 Decision to Disposition Time: 16:34 Depart Departure Latest Vital Signs Vital Signs Date Time Temp Pulse Resp B/P (MAP) Pulse Ox O2 Delivery O2 Flow Rate FiO2 11/30/18 15:12 74 16 11/30/18 15:12 99 Nasal Cannula 3.0 11/30/18 14:37 97.7 122/71 Impression: Primary Impression: Bronchitis Condition: Improved Disposition: HOME OR SELF-CARE New Scripts Prednisone (PREDNISONE) 20 Mg Tablet 20 MG PO BID, #10 TAB Prov: LUCY AGUILERA-BC 11/30/18 Azithromycin 250 Mg Tab (AZITHROMYCIN 250 MG TAB) 250 Mg Tablet 1 TAB PO QDAY, #6 TAB Take 2 tabs today and then 1 tab a day until gone. Prov: LUCY AGUILERA-BC 11/30/18 Patient Instructions: Acute Bronchitis (ED) Additional Instructions: No concerning findings on the laboratory studies or the chest x-ray however with your history of COPD I am going to start you on azithromycin and a prednisone burst. Take the medications as prescribed. Please follow-up with your primary care provider within one week for reevaluation. Return to the emergency department for any other concerns or worsening symptoms. Get plenty of rest. Drink plenty of water. LUCY AGUILERA SHOPPER MARKETING MANAGER-BC Nov 30, 2018 14:51
[2018-11-30] MEDS ORDERED: ALBUTEROL/IPRATROPIUM 3 ML NEB NEB ONE (15:00)
--- NOTE | 2018-11-30 15:49 | RADIOLOGY IMAGING REPORT ---
FACILITY: [facility] PATIENT NAME: Rosario Mary : 1950 MR: [id number] V: [id number] EXAM DATE: ORDERING PHYSICIAN: LUCY AGUILERA TECHNOLOGIST: Location: [facility] [place] Patient: Rosario Mary : 1950 Visit/Account:[id number] Date of Sevice: 11/30/2018 Exam type: CHEST PA LAT History: Cough and shortness of breath Comparison: 2017. and December 09, 2016 Findings: The lungs are free of acute effusions, infiltrates or edema. Cardiac silhouette is mildly enlarged. There is an implanted right IJ port distal tip projects over the superior vena cava. There are surg ical clips in the right axilla. There is an old posttraumatic deformity of the left scapula. There are spondylotic changes of the visualized thoracolumbar spine. Degenerative changes at both shoulder joints are present. IMPRESSION: 1. No acute cardiac pulmonary process is seen Report Dictated By: Jovanna High MD at 11/30/2018 3:41 PM Report E-Signed By: Jovanna High MD at 11/30/2018 3:44 PM WSN:[email or web address]
[2018-11-30 16:05] LABS: PLATELET COUNT, AUTOMATED 168 K/uL (150-450)
[2018-11-30] MEDS ORDERED: AZIT-18 PO (16:35)
[2018-11-30] MEDS ORDERED: PRED20TA6 PO (16:35)
[2018-11-30] MEDS ORDERED: HEPARIN FLSH (PORT) 500 UN/5ML IVP ONE (16:40)
== END 2018-11-30 16:52 | disposition home or self-care (01) ==
LOC: ER 14:43
DX: J40 Bronchitis, not specified as acute or chronic (principal); F17.210 Nicotine dependence, cigarettes, uncomplicated
CPT/HCPCS: 71046; 85025; 94640; 99283; J1642; J7620; 82040; 82247; 82310; 82374; 82435; 82565; 82947; 84075; 84132; 84155; 84295; 84450; 84460; 84520

== ENCOUNTER → 2018-12-12 | Outpatient (CLI) | payer MEDICARE, OTHER ==
[2016-01-12 09:52] VITALS: BMI 34.3
[~2018-12-12] MED LIST changes: +AZIT-18 PO
--- NOTE | 2018-12-12 16:46 | RADIOLOGY IMAGING REPORT ---
FACILITY: [facility] PATIENT NAME: Rosario Mary : 1950 MR: [id number] V: [id number] EXAM DATE: ORDERING PHYSICIAN: AMEENA REECE TECHNOLOGIST: Location: [facility] Patient: Rosario Mary : 1950 Visit/Account:[id number] Date of Sevice: 12/12/2018 Chest with lateral, two views. HISTORY: Bronchitis, cough, shortness of breath, smoker. COMPARISON: Portable chest radiograph 11/30/2018, and chest CTA scan 11/09/2014 (report only). A left jugular PowerPort catheter tip projects on the superior vena cava 1 cm above the superior cavo atrial junction. The heart is borderline enlarged. The aortic knob is calcified. Pulmonary vessels are normal. The lungs are clear. No pleural fluid. The trachea is displaced to the left probably by a substernal goiter, unchanged. Healed fractures are present in the left ribs and scapula. Degen erative changes are present in the spine and shoulders. An implant and metal clips are present in th e right breast. The abdominal aorta is calcified. IMPRESSION: Borderline cardiomegaly without lucia congestive heart failure. Atherosclerosis. Probable substernal goiter. Otherwise no evidence of acute cardiopulmonary disease. Report Dictated By: Anjel Álvarez MD at 12/12/2018 4:37 PM Report E-Signed By: Anjel Álvarez MD at 12/12/2018 4:42 PM WSN:[email or web address]
== END ==
LOC: RAD 15:55
PROVIDERS: ATTEND Family Medicine
DX: I51.7 Cardiomegaly (principal); I70.90 Unspecified atherosclerosis
CPT/HCPCS: 71046

== ENCOUNTER 2018-12-24 13:00 | Outpatient (RCR) | payer MEDICARE, OTHER ==
[2016-01-12 09:52] VITALS: BMI 34.3
--- NOTE | 2018-09-27 09:33 | PT PLAN OF CARE ---
Physician: Jamaal Cross DO Patient is being seen: 2x/week Therapist: Nash Tran, PT, DPT Medical Diagnosis: Decreased gait and balance Treatment Diagnosis: same, low back pain Date of Onset: Date of Initial Evaluation: 06/27/18 Date patient was last seen: 09/26/18 Number of treatments: 24 Number of cancellations/No shows: 0 Patient to be seen for Manual Therapy/STM/MET Strengthening/condition Range of Motion Spinal Stabilization Work Hardening/Cond Stretching Neuromuscular Re-ed Closed Chain Program Posture/Body mechanics Gait Trg/Balance Trg Home Exercise Program Therapeutic Activities Short Term Goals In 6 weeks pt will increase ambulation prior to fatigue to 3 laps around track (855 ft) using 4WW increasing functional endurance resulting in increased ambulation around home and community. met In 6 weeks pt will increase strength in R LE to equal that in L LE for increased functional ability to perform transfers and ADL's. In 8 weeks, pt will be able to transition from FWW to cane independently to improve function and QOL. Progressing 10 weeks, pt will be able to ambulate on uneven ground with FWW to improve her fear of falling and improve function and QOL. Patient's Goals walking with cane and walking on uneven ground Status of Patient's Goals: Progressing well Patient Compliance: Good Prognosis: Reasons for continuing therapy: This is a progress note for Rosario Mary. She reports that her breathing is not doing well since she started to smoke again. She reports that her R hip feels better with ambulation. She reports that her low back pain is doing well and denies any pain today. She states that she feels most limited by her breathing and states that she is frustrated with the relapse in her smoking. She is progressing well with gait mechanics as we have transitioned from the walker to the cane without any LOBs throughout the last two sessions. She continues to demonstrate shorter R step lengths with the cane but they have significantly improved over the last 4 sessions. Furthermore, she has demonstrated increased endurance as she has improved her gait distance from 3 laps to 8 laps, which is a significant improvement. We will continue to improve gait mechanics, endurance, strength, and return to prior level of function. OBJECTIVE: Posture: She demonstrated forward head, B rounded shoulders, increased thoracic kyphosis, and decreased lumbar lordosis. Strength: B hip abduction, extension, B knee flexion, and B ankle DF: 4/5. B hip adduction, B knee extension, B ankle PF: 5/5. Special Tests: The lower extremity functional scale: 44/80; 45% impairment. Tinetti Gait and Balance: : 17.9% Mobility: Modified Independent Gait: With FWW, she demonstrated the following gait mechanics: equal B step lengths, normal base of support, decreased velocity, increased double limb support, decreased pelvic rotation, and no LOB. Balance: Normal base of support, firm surface, and eyes opened: 60 seconds. Decreased base of support, firm surface, and eyes opened: 60 seconds. Tandem stance, firm surface, and eyes opened: 40 seconds with R or L LE forward. Normal base of support, firm surface, and eyes closed: 60 seconds. Decreased base of support, firm surface, and eyes closed: 60 seconds. If you have any questions, please contact me at [phone]. Thank you, Nash Tran, PT, DPT V[facility]
--- NOTE | 2018-11-14 14:19 | PT PLAN OF CARE ---
Physician: Jamaal Cross DO Patient is being seen: 2x/week Therapist: Nash Tran, PT, DPT Medical Diagnosis: Decreased gait and balance Treatment Diagnosis: same, low back pain Date of Onset: Date of Initial Evaluation: 06/27/18 Date patient was last seen: 11/14/18 Number of treatments: 34 Number of cancellations/No shows: 2 Patient to be seen for Manual Therapy/STM/MET Strengthening/condition Range of Motion Spinal Stabilization Work Hardening/Cond Stretching Neuromuscular Re-ed Closed Chain Program Posture/Body mechanics Gait Trg/Balance Trg Home Exercise Program Therapeutic Activities Short Term Goals In 6 weeks pt will increase ambulation prior to fatigue to 3 laps around track (855 ft) using 4WW increasing functional endurance resulting in increased ambulation around home and community. MET In 6 weeks pt will increase strength in R LE to equal that in L LE for increased functional ability to perform transfers and ADL's. MET In 8 weeks, pt will be able to transition from FWW to cane independently to improve function and QOL. Progressing 10 weeks, pt will be able to ambulate on uneven ground with FWW to improve her fear of falling and improve function and QOL. Progressing Patient's Goals walking with cane and walking on uneven ground Status of Patient's Goals: Progressing well Patient Compliance: Good Prognosis: Reasons for continuing therapy: This is a progress note for Rosario Mary. She reports that she is doing well. She reports that the sores are healing well and is getting her new socks for her prosthetic. She denies any current pain. She continues to progress with gait training with single point cane and demonstrates decreased pain with ambulation as long as we perform flexion based specific exercise prior to gait training. Furthermore, she demonstrates improved R step length and normal velocity while utilizing the cane; however, she requires more work with increased R step length, endurance, increasing velocity, and increasing confidence so that she can transition from the FWW to the cane permanently. We will probably see her a maximum of 5 more weeks or 10 sessions, whichever comes first to address those issues. OBJECTIVE: Posture: She demonstrated forward head, B rounded shoulders, increased thoracic kyphosis, and decreased lumbar lordosis. Strength: B hip abduction, extension, B knee flexion, and B ankle DF: 4/5 to 4+/5. B hip adduction, B knee extension, B ankle PF: 5/5. Special Tests: The lower extremity functional scale: 47/80; 41% impairment. Tinetti Gait and Balance: : 17.9% Mobility: Modified Independent Gait: With cane, she demonstrated the following gait mechanics: decreased R step length, normal base of support, decreased velocity, increased double limb support, decreased pelvic rotation, and no LOB. Balance: Normal base of support, firm surface, and eyes opened: 60 seconds. Decreased base of support, firm surface, and eyes opened: 60 seconds. Tandem stance, firm surface, and eyes opened: 40 seconds with R or L LE forward. Normal base of support, firm surface, and eyes closed: 60 seconds. Decreased base of support, firm surface, and eyes closed: 60 seconds. If you have any questions, please contact me at [phone]. Thank you, Nash Tran, PT, DPT WILLD
== END 2018-12-25 ==
LOC: PT 13:00
PROVIDERS: ATTEND Family Medicine
DX: R26.89 Other abnormalities of gait and mobility (principal); R26.2 Difficulty in walking, not elsewhere classified

== ENCOUNTER 2019-01-10 14:00 | Outpatient (RCR) | payer MEDICARE, OTHER ==
[2016-01-12 09:52] VITALS: Wt 93.0 kg
[~2019-01-10 14:00] MED LIST changes: +ALTEPLASE RECOMB 2 MG VIAL IVP PRN; +DEXTROSE 5%(*) 100 ML BAG 100 ML IVPB PRN; +HEPARIN FLSH (PORT) 500 UN/5ML IVP PRN; +LIDOCAINE/SOD BICARB 8.4% SYR ID PRN; +NS(*) 0.9% 100 ML BAG 100 ML IVPB PRN; +NS(*) 0.9% 500 ML BAG 500 ML IV PRN; +WATER FOR INJ,STERILE 20 ML IVP PRN
[2019-01-10 14:06] VITALS: BP 139/70
--- NOTE | 2019-01-10 15:11 | EL-TARABILY ONCOLOGY NOTE ---
EVENT DATE: January 10, 2019 DIAGNOSES 1. Iron deficiency anemia with no response to iron supplement. 2. Type 2 diabetes mellitus, on insulin. 3. Infected right hip replacement. 4. Depression. 5. Gastroesophageal reflux disease. 6. Hypertension. 7. History of breast cancer, status post right mastectomy. 8. Sleep apnea. CHIEF COMPLAINT Patient is here today for followup of her iron deficiency anemia. HEMATOLOGY HISTORY The patient is a 68-year-old female who had a right hip replacement 15 years ago, and apparently, this became infected in 2013, treated with long-term antibiotics. She ultimately required exploration with antibiotic spacer placed. The patient currently is receiving oral antibiotic under the care of Dr. Mendoza in [place]. The patient had a PICC line placed, and she had catheter-related thrombosis recently for which the patient was put on Xarelto 20 mg daily. As per patient, she had a GI workup for evaluation of her iron deficiency anemia by Dr. Lara, and as per patient, she was found to have a bleeding small bowel ulcer. The patient was put on iron with ferrous sulfate 325 mg three times daily, but she continues to have anemia. She received two units of packed RBCs on March 08, 2016. Her CBC on February 22, 2016, showed white count 8000, hemoglobin 8.9, hematocrit 28.7, and MCV 80.9 with platelets 176,000. The patient is referred for further evaluation and management of her iron deficiency anemia which is not responding to the oral iron supplementation. HISTORY OF PRESENT ILLNESS Patient is here today for followup of her iron deficiency anemia. Patient stopped her iron pills for the last two weeks. She is complaining of nasal discharge and occasional bloody noses. She has cough with expectoration, shortness of breath, and wheezing from recent upper respiratory tract infection. She is using oxygen all the time. She has also occasional constipation and headache. She bruises easily. She is weak, tired, and fatigued. PAST MEDICAL HISTORY 1. Iron deficiency anemia. 2. Infected right hip replacement 3. COPD. 4. Atrial fibrillation. 5. Depression. 6. Hyperlipidemia. 7. Obesity. 8. GERD. 9. Hypertension. 10. Type 2 diabetes. 11. History of breast cancer. 12. History of non-ST elevation myocardial infarction. 13. History of bladder dysfunction. 14. Sleep apnea. 15. Chronic pain syndrome. 16. Congestive heart failure. PAST SURGICAL HISTORY 1. Hysterectomy. 2. Cholecystectomy. 3. Right mastectomy for breast cancer. 4. Left leg aadsj-zgs-jmpu amputation. 5. Broken right calcaneus bone. SOCIAL HISTORY The patient is a with two children. She smokes little. Denies any abuse of alcohol or illicit drugs. 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 FAMILY HISTORY Mother with breast cancer. She has also brother and sister with cancer. CURRENT MEDICATIONS 1. Lasix 20 mg twice daily. 2. Insulin Lantus 30 units subcutaneously twice daily. 3. Xarelto 20 mg daily. 4. Protonix 40 mg twice daily. 5. Doxycycline 100 mg b.i.d. 6. Ferrous sulfate 150 mg capsule of polysaccharide iron 150 once daily. 7. Lyrica 50 mg three times daily. 8. Exubinex HFA 15 g one to two puffs by inhalation three times daily as needed for wheezing. 9. Humalog insulin subcutaneously sliding scale. 10. Abilify 2 mg daily. 11. Vitamin D3 at 1000 units daily. 12. Magnesium oxide 400 mg daily in two divided doses. 13. Celexa 40 mg daily. 14. Aspirin 81 mg daily. ALLERGIES 1. HYDROCODONE. 2. LISINOPRIL. 3. MORPHINE. 4. SULFAMETHOXAZOLE. 5. TRIMETHOPRIM. 6. VANCOMYCIN. REVIEW OF SYSTEMS CONSTITUTIONAL: No appetite or weight change. No fever, chills, or sweating. No recent infection. HEENT: Ears: No tinnitus or hearing problem. Nose: Patient has nasal discharge and occasional epistaxis. Throat: No sore throat or mouth ulcers. Eyes: No diplopia or visual changes. RESPIRATORY: She has cough with expectoration, shortness of breath, and wheezing. No hemoptysis. CARDIOVASCULAR: No chest pain, orthopnea, or paroxysmal nocturnal dyspnea (PND). No edema. No palpitations. GASTROINTESTINAL: No nausea or vomiting. No diarrhea. She has occasional constipation. No change in bowel movements. No heartburn or swallowing difficulties. No abdominal pain. No jaundice. No hematemesis, melena, or rectal bleeding. GENITOURINARY: No hematuria or dysuria. MUSCULOSKELETAL: No pain in the muscles, joints, or bones. NEUROLOGICAL: No tingling or numbness in the hands or feet. She has occasional headache. No convulsions. HEMATOLOGIC/LYMPHATIC: No bleeding. She bruises easily. She is weak, tired, and fatigued. No enlarged lymph nodes. SKIN: No skin rash or lumps. PSYCHIATRIC: No anxiety or depression. PHYSICAL EXAMINATION GENERAL: Looks stable. Well developed, well nourished, and in no acute distress. VITAL SIGNS: Blood pressure 139/70, pulse 96 per minute, respirations 17 per minute, temperature 97.7, pulse ox 91% on 2L oxygen. HEENT: Head: Atraumatic. No sinus tenderness to palpation. Eyes: No icterus or conjunctivitis. Mouth and Throat: No oral thrush or mucositis. NECK: Supple. No cervical or supraclavicular lymphadenopathy. LUNGS: Clear to auscultation and percussion bilaterally. HEART: Regular rate and rhythm. No gallops, murmurs, clicks, or rubs. ABDOMEN: Soft and lax. No tenderness. No hepatosplenomegaly. No masses. EXTREMITIES: No cyanosis, clubbing, or edema. LYMPHATICS: No peripheral lymphadenopathy. NEUROLOGICAL: Conscious, alert, and oriented times three. No focal motor or sensory deficits. PSYCHIATRIC: Mood and affect appear normal. SKIN: No skin rash, bruise, or purpuric eruption. DIAGNOSTIC DATA CBC showed white count 10.2, hemoglobin 13.5, hematocrit 40.3, platelets 189,000. Serum ferritin is 28, serum iron 74, TIBC 348, and iron saturation 21.3%. ASSESSMENT 1. Iron deficiency anemia with no response to oral iron supplement. Patient had gastrointestinal workup by Dr. Lara and was found to have a small bowel ulcer. She was maintained on Xarelto for deep venous thrombosis of the left upper extremity, which was discontinued, but the patient was put back on anticoagulation because of carotid artery thrombosis. She showed poor response to oral iron supplementation in the past. She received iron infusion in the form of Injectafer with improvement of her iron deficiency. Her hemoglobin improved from 8.6, and her current hemoglobin level is 13.5. Her ferritin dropped from 59 to 18 to 17 to 15, and her current ferritin is 28. Iron supplementation with ferrous sulfate was stopped by the patient about two weeks ago. I am planning to hold on iron supplementation currently for another two months and will see the effect on her iron studies and hemoglobin in two months from now. I explained that to the patient. She is agreeable with the plan of management. 2. Deep venous thrombosis of the left upper extremity, resolved with Xarelto. 3. Carotid artery thrombosis, on anticoagulation. 4. Type 2 diabetes, on treatment. 5. Gastroesophageal reflux disease. 6. History of breast cancer, status post right mastectomy. PLAN 1. Hold iron supplementation. 2. Patient to return in two months with CBC, iron studies with ferritin. 3. Patient is to contact us for any new concerns or complaints. VANESSA
[2019-01-21] MEDS ORDERED: FURO-45 PO (16:12)
[2019-01-21] MEDS ORDERED: CARV12.578 PO (16:16)
== END 2019-02-13 09:02 | disposition home or self-care (01) ==
LOC: ONC 14:00
PROVIDERS: ATTEND Internal Medicine Hematology
DX: D50.9 Iron deficiency anemia, unspecified (principal); Z79.01 Long term (current) use of anticoagulants; Z86.718 Personal history of other venous thrombosis and embolism; I65.29 Occlusion and stenosis of unspecified carotid artery; E11.9 Type 2 diabetes mellitus without complications; Z79.4 Long term (current) use of insulin; K21.9 Gastro-esophageal reflux disease without esophagitis; Z85.3 Personal history of malignant neoplasm of breast; I10 Essential (primary) hypertension
CPT/HCPCS: 36591; 82728; 83540; 83550; 85025; G0463; J1642; 99212

== ENCOUNTER → 2019-02-19 | Outpatient (REF) | payer MEDICARE, OTHER ==
[2016-01-12 09:52] VITALS: BMI 34.3
[~2019-02-19] MED LIST changes: -ALTEPLASE RECOMB 2 MG VIAL IVP PRN; -DEXTROSE 5%(*) 100 ML BAG 100 ML IVPB PRN; -HEPARIN FLSH (PORT) 500 UN/5ML IVP PRN; -LIDOCAINE/SOD BICARB 8.4% SYR ID PRN; -NS(*) 0.9% 100 ML BAG 100 ML IVPB PRN; -NS(*) 0.9% 500 ML BAG 500 ML IV PRN; -WATER FOR INJ,STERILE 20 ML IVP PRN
== END ==
LOC: ZZSENDIN 12:00
PROVIDERS: ATTEND Family Medicine
DX: L82.1 Other seborrheic keratosis (principal); D22.9 Melanocytic nevi, unspecified
CPT/HCPCS: 88305

== ENCOUNTER 2019-02-20 13:00 | Outpatient (RCR) | payer MEDICARE, OTHER ==
[2016-01-12 09:52] VITALS: BMI 34.3
--- NOTE | 2018-12-26 16:24 | PT PLAN OF CARE ---
Physician: Jamaal Cross DO Patient is being seen: 2x/week Therapist: Nash Tran, PT, DPT Medical Diagnosis: Decreased gait and balance Treatment Diagnosis: same, low back pain Date of Onset: Date of Initial Evaluation: 06/27/18 Date patient was last seen: 12/26/18 Number of treatments: 42 Number of cancellations/No shows: 2 Patient to be seen for Manual Therapy/STM/MET Strengthening/condition Range of Motion Spinal Stabilization Work Hardening/Cond Stretching Neuromuscular Re-ed Closed Chain Program Posture/Body mechanics Gait Trg/Balance Trg Home Exercise Program Therapeutic Activities Short Term Goals In 6 weeks pt will increase ambulation prior to fatigue to 3 laps around track (855 ft) using 4WW increasing functional endurance resulting in increased ambulation around home and community. MET In 6 weeks pt will increase strength in R LE to equal that in L LE for increased functional ability to perform transfers and ADL's. MET In 8 weeks, pt will be able to transition from FWW to cane independently to improve function and QOL. Progressing 10 weeks, pt will be able to ambulate on uneven ground with FWW to improve her fear of falling and improve function and QOL. Progressing Patient's Goals walking with cane and walking on uneven ground Status of Patient's Goals: Progressing well Patient Compliance: Good Prognosis: Fair Reasons for continuing therapy: This is a progress note for Rosario Mary. She reports that she is not feeling as good as she was on Monday. She reports that she did not sleep well last night and feels more tired and less energy today. She continues to demonstrate increased endurance with both the cane and FWW. Furthermore, she demonstrates increased R step lengths with cane ambulation. However, she has been battling low back pain with radiating pain that becomes worse with ambulation with the cane but we are able to decrease to abolish the low back pain with flexion based specific exercise. Overall, she has made significant improvements with gait mechanics, endurance, and B LE strength that we will continue to perform so that she can be modified independent with decreased fall risk when ambulating with the cane for at least 10 more visits. OBJECTIVE: Posture: She demonstrated forward head, B rounded shoulders, increased thoracic kyphosis, and decreased lumbar lordosis. Strength: B hip abduction, extension, B knee flexion, and B ankle DF: 4/5 to 4+/5. B hip adduction, B knee extension, B ankle PF: 5/5. Special Tests: The lower extremity functional scale: 46/80; 40% impairment. Tinetti Gait and Balance: : 17.9% Mobility: Modified Independent Gait: With cane, she demonstrated the following gait mechanics: decreased R step length, normal base of support, decreased velocity, increased double limb support, decreased pelvic rotation, and no LOB. Balance: Normal base of support, firm surface, and eyes opened: 60 seconds. Decreased base of support, firm surface, and eyes opened: 60 seconds. Tandem stance, firm surface, and eyes opened: 40 seconds with R or L LE forward. Normal base of support, firm surface, and eyes closed: 60 seconds. Decreased base of support, firm surface, and eyes closed: 60 seconds. If you have any questions, please contact me at [phone]. Thank you, Nash Tran, PT, DPT VANESSA
--- NOTE | 2019-02-18 16:13 | PT PLAN OF CARE ---
Physician: Jamaal Cross DO Patient is being seen: 2x/week Therapist: Nash Tran, PT, DPT Medical Diagnosis: Decreased gait and balance Treatment Diagnosis: same, low back pain Date of Onset: Date of Initial Evaluation: 06/27/18 Date patient was last seen: 02/18/19 Number of treatments: 52 Number of cancellations/No shows: 6 Patient to be seen for Manual Therapy/STM/MET Strengthening/condition Range of Motion Spinal Stabilization Work Hardening/Cond Stretching Neuromuscular Re-ed Closed Chain Program Posture/Body mechanics Gait Trg/Balance Trg Home Exercise Program Therapeutic Activities Short Term Goals In 6 weeks pt will increase ambulation prior to fatigue to 3 laps around track (513 ft) using 4WW increasing functional endurance resulting in increased ambulation around home and community. MET In 6 weeks pt will increase strength in R LE to equal that in L LE for increased functional ability to perform transfers and ADL's. MET In 8 weeks, pt will be able to transition from FWW to cane independently to improve function and QOL. Progressing 10 weeks, pt will be able to ambulate on uneven ground with FWW to improve her fear of falling and improve function and QOL. Progressing Patient's Goals walking with cane and walking on uneven ground Status of Patient's Goals: Progressing well Patient Compliance: Good Prognosis: Fair Reasons for continuing therapy: This is a progress note for Rosario Mary. She reports that she feels like she is doing a lot better. She does report increased pain with her prosthetic limb following removal of her prosthetic for 1 to 3 hours following. She also reports that at times it is difficult to get the prosthetic back and she becomes extremely frustrated because of it. She reports that she will see Dr. Vila next week to see if something can be changed to where she does not have that pain anymore following removal of her prosthetic. She reports that she has been working closely with Mian Caruso to see if the prosthetic is fitting correctly and distributing the correct pressure in the correct areas on her limb and he feels like it is placing the pressure where it wants it to be. She denies any pressure sore on her prosthetic limb side. Overall, she feels like her back is getting better and can ambulation as along as she wants without an increase in her low back pain. She would like to continue to progress to the cane if possible and feels like she is in a place now when she can start to work on it. She demonstrated the following improvements: increased 6 minute walk test from 384 feet to 513 feet in 6 minutes, which is a significant improvement for her, increased B step lengths and B step clearance, increased LEFS, abolished low back pain during ambulation, which is another significant improvement. I would like to transition to cane ambulation as long as her prosthetic is doing well and her low back pain is completely abolished while doing so. Lastly, she demonstrated increased B LE strength and demonstrated 5/5 strength in all muscle groups with the exception of R ankle DF and PF and B hip abductors were 4+/5, which is a significant improvement. We will continue to work on transiting from FWW to cane for at least 10 more sessions to return her closer to prior level of function to improve QOL. OBJECTIVE: Posture: She demonstrated forward head, B rounded shoulders, increased thoracic kyphosis, and decreased lumbar lordosis. Strength: B hip abduction, R ankle DF: 4+/5. B hip adduction, hip extension, B knee flexion, B knee extension, B ankle PF: 5/5. Special Tests: The lower extremity functional scale: 52/80; 35% impairment. Tinetti Gait and Balance: : 17.9%, 6 minute walk test: 513 feet Mobility: Modified Independent Gait: With cane, she demonstrated the following gait mechanics: decreased R step length, normal base of support, decreased velocity, increased double limb support, decreased pelvic rotation, and no LOB. Balance: Normal base of support, firm surface, and eyes opened: 60 seconds. Decreased base of support, firm surface, and eyes opened: 60 seconds. Tandem stance, firm surface, and eyes opened: 40 seconds with R or L LE forward. Normal base of support, firm surface, and eyes closed: 60 seconds. Decreased base of support, firm surface, and eyes closed: 60 seconds. If you have any questions, please contact me at [phone]. Thank you, Nash Tran, PT, DPT WILLD
== END 2019-02-20 18:00 | disposition home or self-care (01) ==
LOC: PT 13:00
PROVIDERS: ATTEND Family Medicine
DX: R26.89 Other abnormalities of gait and mobility (principal); R26.2 Difficulty in walking, not elsewhere classified; M54.5 Low back pain

== ENCOUNTER → 2019-02-26 | Outpatient (REF) | payer MEDICARE, OTHER ==
[2016-01-12 09:52] VITALS: BMI 34.3
== END ==
LOC: ZZSENDIN 12:01
PROVIDERS: ATTEND Family Medicine
DX: L82.0 Inflamed seborrheic keratosis (principal)
CPT/HCPCS: 88305

== ENCOUNTER 2019-03-11 14:00 | Outpatient (RCR) | payer MEDICARE, OTHER ==
[2016-01-12 09:52] VITALS: BMI 34.3
[2019-01-07 14:04] LABS: PLATELET COUNT, AUTOMATED 189 K/uL (150-450)
[~2019-03-11 14:00] MED LIST changes: +ALTEPLASE RECOMB 2 MG VIAL IVP PRN; +DEXTROSE 5%(*) 100 ML BAG 100 ML IVPB PRN; +HEPARIN FLSH (PORT) 500 UN/5ML IVP PRN; +NS(*) 0.9% 100 ML BAG 100 ML IVPB PRN; +NS(*) 0.9% 500 ML BAG 500 ML IV PRN; -RANI-366 PO; +RANI-54 PO; +WATER FOR INJ,STERILE 20 ML IVP PRN
[2019-03-11 14:18] VITALS: BP 141/51
[2019-03-11] MEDS: LIDOCAINE/SOD BICARB 8.4% SYR ID PRN (14:52)
[2019-03-11] MEDS ORDERED: ALTEPLASE RECOMB 2 MG VIAL IVP PRN (14:55)
[2019-03-11] MEDS ORDERED: NS(*) 0.9% 250 ML BAG 250 ML IVPB PRN (14:55)
[2019-03-11] MEDS ORDERED: HEPARIN FLSH (PORT) 500 UN/5ML IVP PRN (14:55)
[2019-03-11] MEDS ORDERED: WATER FOR INJ,STERILE 20 ML IVP PRN (14:55)
[2019-03-11] MEDS ORDERED: DEXTROSE 5%(*) 100 ML BAG 100 ML IVPB PRN (14:55)
[2019-03-11] MEDS ORDERED: LIDOCAINE/SOD BICARB 8.4% SYR ID PRN (14:55)
[2019-03-11] MEDS ORDERED: NS(*) 0.9% 100 ML BAG 100 ML IVPB PRN (14:55)
[2019-03-11 14:56] LABS: PLATELET COUNT, AUTOMATED 169 K/uL (150-450)
[2019-03-14 12:43] VITALS: BP 127/76
--- NOTE | 2019-03-15 02:45 | EL-TARABILY ONCOLOGY NOTE ---
EVENT DATE: March 14, 2019 DIAGNOSES 1. Iron deficiency anemia with no response to iron supplement. 2. Type 2 diabetes mellitus, on insulin. 3. Infected right hip replacement. 4. Depression. 5. Gastroesophageal reflux disease. 6. Hypertension. 7. History of breast cancer, status post right mastectomy. 8. Sleep apnea. CHIEF COMPLAINT Patient is here today for followup of her iron deficiency anemia. HEMATOLOGY HISTORY The patient is a 69-year-old female who had a right hip replacement 15 years ago, and apparently, this became infected in 2013, treated with long-term antibiotics. She ultimately required exploration with antibiotic spacer placed. The patient currently is receiving oral antibiotic under the care of Dr. Mendoza in [place]. The patient had a PICC line placed, and she had catheter-related thrombosis recently for which the patient was put on Xarelto 20 mg daily. As per patient, she had a GI workup for evaluation of her iron deficiency anemia by Dr. Lara, and as per patient, she was found to have a bleeding small bowel ulcer. The patient was put on iron with ferrous sulfate 325 mg three times daily, but she continues to have anemia. She received two units of packed RBCs on March 08, 2016. Her CBC on February 22, 2016, showed white count 8000, hemoglobin 8.9, hematocrit 28.7, and MCV 80.9 with platelets 176,000. The patient is referred for further evaluation and management of her iron deficiency anemia which is not responding to the oral iron supplementation. HISTORY OF PRESENT ILLNESS Patient is here today for followup of her iron deficiency anemia. She is doing fine currently. She is complaining of some nasal discharge. She has cough with expectoration, shortness of breath, and wheezing. She gas started to have some pain at her left stump after removing her artificial leg, and the patient is going to see her orthopedic surgeon soon. She is weak, tired, and fatigued. PAST MEDICAL HISTORY 1. Iron deficiency anemia. 2. Infected right hip replacement 3. COPD. 4. Atrial fibrillation. 5. Depression. 6. Hyperlipidemia. 7. Obesity. 8. GERD. 9. Hypertension. 10. Type 2 diabetes. 11. History of breast cancer. 12. History of cpr-YW-pewpappnu myocardial infarction. 13. History of bladder dysfunction. 14. Sleep apnea. 15. Chronic pain syndrome. 16. Congestive heart failure. PAST SURGICAL HISTORY 1. Hysterectomy. 2. Cholecystectomy. 3. Right mastectomy for breast cancer. 4. Left leg ingif-tnw-rrwz amputation. 5. Broken right calcaneus bone. SOCIAL HISTORY The patient is a with two children. She smokes little. Denies any abuse of alcohol or illicit drugs. 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 FAMILY HISTORY Mother with breast cancer. She has also brother and sister with cancer. CURRENT MEDICATIONS 1. Lasix 20 mg twice daily. 2. Insulin Lantus 30 units subcutaneously twice daily. 3. Xarelto 20 mg daily. 4. Protonix 40 mg twice daily. 5. Doxycycline 100 mg b.i.d. 6. Ferrous sulfate 150 mg capsule of polysaccharide iron 150 once daily. 7. Lyrica 50 mg three times daily. 8. Exubinex HFA 15 g one to two puffs by inhalation three times daily as needed for wheezing. 9. Humalog insulin subcutaneously sliding scale. 10. Abilify 2 mg daily. 11. Vitamin D3 at 1000 units daily. 12. Magnesium oxide 400 mg daily in two divided doses. 13. Celexa 40 mg daily. 14. Aspirin 81 mg daily. ALLERGIES 1. HYDROCODONE. 2. LISINOPRIL. 3. MORPHINE. 4. SULFAMETHOXAZOLE. 5. TRIMETHOPRIM. 6. VANCOMYCIN. REVIEW OF SYSTEMS CONSTITUTIONAL: No appetite or weight change. No fever, chills or sweating. No recent infection. HEENT: Ears: No tinnitus or hearing problem. Nose: She has nasal discharge. Throat: No sore throat or mouth ulcers. Eyes: No diplopia or visual changes. RESPIRATORY: She has cough with expectoration, shortness of breath and wheezing. CARDIOVASCULAR: No chest pain, orthopnea, or paroxysmal nocturnal dyspnea (PND). No edema. No palpitations. GASTROINTESTINAL: No nausea or vomiting. No diarrhea or constipation. No change in bowel movements. No heartburn or swallowing difficulties. No abdominal pain. No jaundice. No hematemesis, melena or rectal bleeding. GENITOURINARY: No hematuria or dysuria. MUSCULOSKELETAL: She has pain at her left stump after removing her artificial leg. NEUROLOGICAL: No tingling or numbness in the hands or feet. She has occasional headache. No convulsions. HEMATOLOGIC/LYMPHATIC: She is weak, tired, and fatigued. SKIN: No skin rash or lumps. PSYCHIATRIC: No anxiety or depression. PHYSICAL EXAMINATION GENERAL: Looks stable. Well-developed, well-nourished, and in no acute distress. VITAL SIGNS: Blood pressure 127/76, pulse 77 per minute, respirations 16 per minute, temperature 98.3, pulse oximetry 94% on 3L oxygen. HEENT: Head: Atraumatic. No sinus tenderness to palpation. Eyes: No icterus or conjunctivitis. Mouth and throat: No oral thrush or mucositis. NECK: Supple. No cervical or supraclavicular lymphadenopathy. LUNGS: Clear to auscultation and percussion bilaterally. HEART: Regular rate and rhythm. No gallops, murmurs, clicks or rubs. ABDOMEN: Soft and lax. No tenderness. No hepatosplenomegaly. No masses. EXTREMITIES: No cyanosis, clubbing or edema. LYMPHATICS: No peripheral lymphadenopathy. NEUROLOGICAL: Conscious, alert and oriented times three. No focal motor or sensory deficits. PSYCHIATRIC: Mood and affect appear normal. SKIN: No skin rash, bruise or purpuric eruption. DIAGNOSTIC DATA CBC showed white count 9.5, hemoglobin 15.5, hematocrit 46.3, platelets 169,000. Serum iron 253, TIBC 353, iron saturation 71.7%, and ferritin 15, which is a little bit lower than the last visit. ASSESSMENT 1. Iron deficiency anemia with no response to oral iron supplement. Patient had gastrointestinal workup by Dr. Lara and was found to have a small bowel ulcer. She was maintained on Xarelto for deep venous thrombosis of the left upper extremity, which was discontinued, but the patient was put back on anticoagulation because of carotid artery thrombosis. She showed poor response to oral iron supplementation in the past. She received iron infusion in the form of Injectafer with improvement of her iron deficiency. Her hemoglobin improved from 8.6, and her current hemoglobin level is 15.5. Her ferritin dropped from 59 to 18 to 17 to 15 to 28, and currently it is 15 again. Patient stopped her oral iron supplement in the last two months, with drop of her ferritin from 28 to 15. I am planning to put her back on one pill of ferrous sulfate 325 mg daily, and I will see her in three months from now with CBC, iron studies with ferritin. If she develops significant iron deficiency, then I will proceed with Injectafer intravenously. 2. Deep venous thrombosis of the left upper extremity, resolved with Xarelto. 3. Carotid artery thrombosis, on anticoagulation. 4. Type 2 diabetes, on treatment. 5. Gastroesophageal reflux disease. 6. History of breast cancer, status post right mastectomy. PLAN 1. Ferrous sulfate 325 mg once daily. 2. Patient to return in three months with CBC, iron studies with ferritin. 3. Patient is to contact us for any new concerns or complaints. MTDD
[2019-04-17] MEDS: LIDOCAINE/SOD BICARB 8.4% SYR ID PRN (10:30)
== END 2019-06-06 ==
LOC: SPU 14:00
PROVIDERS: ATTEND Internal Medicine Hematology
DX: D50.9 Iron deficiency anemia, unspecified (principal); I65.29 Occlusion and stenosis of unspecified carotid artery; Z86.718 Personal history of other venous thrombosis and embolism; Z79.01 Long term (current) use of anticoagulants; E11.9 Type 2 diabetes mellitus without complications; Z79.4 Long term (current) use of insulin; K21.9 Gastro-esophageal reflux disease without esophagitis; Z85.3 Personal history of malignant neoplasm of breast; Z79.899 Other long term (current) drug therapy; R53.1 Weakness; R53.83 Other fatigue
CPT/HCPCS: 36591; 82728; 83540; 83550; 85025; G0463; J1642; 99212

== ENCOUNTER → 2019-04-17 | Outpatient (CLI) | payer MEDICARE, OTHER ==
[2016-01-12 09:52] VITALS: BMI 34.3
[~2019-04-17] MED LIST changes: -ALTEPLASE RECOMB 2 MG VIAL IVP PRN; -DEXTROSE 5%(*) 100 ML BAG 100 ML IVPB PRN; -HEPARIN FLSH (PORT) 500 UN/5ML IVP PRN; -NS(*) 0.9% 100 ML BAG 100 ML IVPB PRN; -NS(*) 0.9% 500 ML BAG 500 ML IV PRN; -WATER FOR INJ,STERILE 20 ML IVP PRN
[2019-04-17 10:41] VITALS: BP 114/59
== END ==
LOC: SPU 10:27
PROVIDERS: ATTEND Orthopaedic Surgery Hand Surgery
DX: G54.6 Phantom limb syndrome with pain (principal)
CPT/HCPCS: 36591; 82565

== ENCOUNTER → 2019-04-17 | Outpatient (CLI) | payer MEDICARE, OTHER ==
[2016-01-12 09:52] VITALS: BMI 34.3
[~2019-04-17] MED LIST changes: +IOPAMIDOL 76% 100 ML INFUS BTL 100 ML ONE
--- NOTE | 2019-04-17 13:41 | RADIOLOGY IMAGING REPORT ---
[place]AC[place] [facility] [place] NAME: Rosario Mary : 1950 MR: [id number] V: [id number] EXAM DATE: ORDERING PHYSICIAN: CHLOE BARBOSA TECHNOLOGIST: Location: [facility] Patient: Rosario Mary : 1950 Visit/Account:[id number] Date of Sevice: 04/17/2019 Examination: Computed tomography left tibia-fibula with contrast HISTORY: Prior left below the knee amputation. Prior left knee arthroplasty. Distal stump pain. Evalu ate for tibial neuroma. TECHNIQUE: Transaxial computed tomography images are obtained of the left tibia-fibula following the administration of 75 mL Isovue-370. Multiplanar reformatted images were created in the coronal and sa gittal planes One of the following dose optimization techniques was utilized in the performance of this exam: Autom ated exposure control; adjustment of the mA and/or kV according to the patient's size; or use of an i terative reconstruction technique. Specific details can be referenced in the facility's radiology C T exam operational policy. FINDINGS: There is metal streak artifact arising from the patient's left total knee arthroplasty. The arthropla sty components appear appropriately aligned without periprosthetic fracture or lucency identified. There has been a previous saycd-diu-rcog amputation procedure performed. The amputation margins of th e distal tibia and the distal fibula are well corticated. Within the distal stump subcutaneous tissues, there is an area of low/ soft tissue attenuation just b eyond the tibial amputation and medial to the tibial amputation site. This may be related to edema or possibly an adventitial bursa within the soft tissues. No peripherally enhancing fluid collection is seen. No evidence to suggest a stump neuroma of the tibial nerve. There is expected muscle atrophy of the l ower leg musculature. Atherosclerotic vascular calcifications involve the popliteal artery. IMPRESSION: 1. No CT evidence of a left tibial nerve stump neuroma. Of note, the soft tissues posterior to the kn ee are obscured by streak artifact from the arthroplasty. 2. Area of nonspecific soft tissue edema within the distal stump soft tissues just beyond and medial to the tibia. This may be related to swelling or an adventitial bursa. No well-defined peripheral enh ancing fluid collection. 3. Expected muscle atrophy of the lower leg musculature after below the knee amputation. Report Dictated By: Bart Lenz at 04/17/2019 12:54 PM Report E-Signed By: Bart Lenz at 04/17/2019 1:35 PM WSN:[id number]
== END ==
LOC: CT 01:28
PROVIDERS: ATTEND Orthopaedic Surgery Hand Surgery
DX: T87.89 Other complications of amputation stump (principal)
CPT/HCPCS: 73701; Q9967

== ENCOUNTER → 2019-04-26 | Outpatient (CLI) | payer MEDICARE, OTHER ==
[2016-01-12 09:52] VITALS: BMI 34.3
[~2019-04-26] MED LIST changes: -IOPAMIDOL 76% 100 ML INFUS BTL 100 ML ONE
--- NOTE | 2019-04-26 16:03 | RADIOLOGY IMAGING REPORT ---
FAC[place]: [facility] [place] NAME: Rosario Mary : 1950 MR: [id number] V: [id number] EXAM DATE: ORDERING PHYSICIAN: PATRICA JOSEPH TECHNOLOGIST: Location: [facility] Patient: Rosario Mary : 1950 Visit/Account:[id number] Date of Sevice: 04/26/2019 Exam type: CHEST PA LAT History: As above and cough x2 months, diagnosed with bronchitis two months ago, history of COPD and smoking history Comparison: There for 019. Findings: The lungs are free of acute effusions, infiltrates or edema. The cardiac silhouette is stable. Ther e is an implanted left IJ port with the distal tip in superior vena cava. There are surgical clips a nd an implant projecting over the right breast the trachea is deviated towards the left which may be related to a goiter as seen on a prior CT of the chest November 09, 2014. Incidentally noted is an ol d left scapular fracture and spondylotic changes of the visualized spine IMPRESSION: 1. No acute cardiopulmonary process is seen Report Dictated By: Jovanna High MD at 04/26/2019 3:53 PM Report E-Signed By: Jovanna High MD at 04/26/2019 3:56 PM WSN:[email or web address]
== END ==
LOC: RAD 14:28
PROVIDERS: ATTEND Family Medicine
DX: R05 Cough (principal)
CPT/HCPCS: 71046

== ENCOUNTER → 2019-05-20 | Outpatient (REF) | payer MEDICARE, OTHER ==
[2016-01-12 09:52] VITALS: BMI 34.3
== END ==
LOC: ZZSENDIN 12:00
PROVIDERS: ATTEND Family Medicine
DX: B07.9 Viral wart, unspecified (principal)
CPT/HCPCS: 88305